=== PATIENT | female | born 1930 | race Caucasian/White ===

== ENCOUNTER 2017-01-10 13:15 | Outpatient (CLI) | payer MEDICARE, OTHER ==
[~2017-01-10 13:15] MED LIST: ASPIRIN81 MG ORAL; CALCIUM CITRAT1 EAC3 PO; CENTRUM COMPLE1 EAC1 PO; DOCUSATE SODIU100 MG ORAL; FOLIC ACID1 MG ORAL; NIASPAN1000 MG ORAL; PACERONE100 MG ORAL; PANTOPRAZOLE SO40 MG ORAL; SIMVASTATIN10 MG ORAL; SYNTHROID25 MCG ORAL; ULTRA COQ1075 MG PO; VITAMIN C500 M1 ORAL; [UNRECOGNIZED DRUG - OTHER]; fish oil; glucosamine; magnesium citrate
[2017-01-10 14:32] LABS: BASOPHILS % (AUTO) 1.1 % (0.0-2.0); EOSINOPHILS % (AUTO) 2.8 % (0.0-3.0); LYMPHOCYTES % (AUTO) 15.1 % (20.0-45.0); MEAN CORPUSCULAR HEMOGLOBIN 29.8 PG (27.0-31.0); MEAN CORPUSCULAR HGB CONC 31.2 G/DL (32.0-36.0); MEAN CORPUSCULAR VOLUME 96 FL (80-99); MEAN PLATELET VOLUME 9.2 FL (6.5-10.1); MONOCYTES % (AUTO) 6.9 % (1.0-10.0); NEUTROPHILS % (AUTO) 74.2 % (45.0-75.0); PLATELET COUNT 142 K/UL (150-450); RED BLOOD COUNT 3.59 M/UL (4.20-5.40); RED CELL DISTRIBUTION WIDTH 14.6 % (11.6-14.8); WHITE BLOOD COUNT 6.5 K/UL (4.8-10.8)
[2017-01-10 14:33] LABS: APPEARANCE,URINE CLEAR; KETONES,URINE 2+ (NEGATIVE); LEUKOCYTE ESTERASE ,URINE 1+ (NEGATIVE); NITRITE,URINE NEGATIVE (NEGATIVE); PH,URINE 6.5 (4.5-8.0); PROTEIN,URINE 3+ (NEGATIVE); UROBILINOGEN,URINE NORMAL MG/DL (0.0-1.0)
[2017-01-10 14:47] LABS: RBC,URINE 0-2 /HPF (0 - 2); SQUAMOUS EPITHELIAL CELL,UR FEW /LPF (NONE/OCC)
[2017-01-10 14:48] LABS: BACTERIA,URINE FEW /HPF
[2017-01-10 14:51] LABS: ALANINE AMINOTRANSFERASE 15 U/L (3-33); ALBUMIN/GLOBULIN RATIO 1.3 (1.0-2.7); ANION GAP 10 (5-15); ASPARTATE AMINO TRANSFERASE 30 U/L (5-40); CALCIUM 9.9 mg/dL (8.6-10.2); CARBON DIOXIDE 28 mEQ/L (20-30); CHLORIDE 99 mEQ/L (98-107); CHOLESTEROL 185 mg/dL (< 200); CHOLESTEROL/HDL RATIO 1.9 (3.3-4.4); CREATININE 0.8 mg/dL (0.5-0.9); LDL CHOLESTEROL (CALC.) 73 mg/dL (60-99); MAGNESIUM 2.2 mg/dL (1.7-2.5); POTASSIUM 4.3 mEQ/L (3.4-4.9); SODIUM 137 mEQ/L (135-145); TOTAL PROTEIN 6.7 g/dL (6.6-8.7)
[2017-01-10 14:52] LABS: HEMOLYSIS 1; IRON 81 ug/dL (37-145); TOTAL IRON BINDING CAPACITY 359 ug/dL (250-400)
[2017-01-10 15:02] LABS: FERRITIN 35 ng/mL (13-150)
== END 2017-01-10 15:15 | disposition home or self-care (01) ==
LOC: LAB 13:15
DX: I10 Essential (primary) hypertension (principal); I25.10 Atherosclerotic heart disease of native coronary artery without angina pectoris; M19.90 Unspecified osteoarthritis, unspecified site
CPT/HCPCS: 36415; 80053; 80061; 81001; 82306; 82607; 82728; 83540; 83550; 83735; 84443; 85025

== ENCOUNTER 2017-01-23 14:59 | Outpatient (CLI) | payer MEDICARE, OTHER ==
--- NOTE | 2017-01-24 13:38 | Diagnostic Imaging Report ---
Indication: COUGH Technique: 2 views of the chest Comparison: 05/25/2015 Findings: Lungs are hyperinflated. Lungs and pleural spaces are clear. Heart size is normal. Aorta is tortuous ectatic and calcified. There is thoracic and lumbar scoliotic deformity again demonstrated. Prior median sternotomy. Findings are unchanged Impression: No acute process. COPD Other findings as noted
== END 2017-01-23 17:59 | disposition home or self-care (01) ==
LOC: RAD 14:59
DX: Z51.81 Encounter for therapeutic drug level monitoring (principal); R05 Cough
CPT/HCPCS: 71020

== ENCOUNTER 2017-12-18 11:01 | Outpatient (CLI) | payer MEDICARE, OTHER | END 2017-12-18 13:01 | disposition home or self-care (01) | LOC: VAS 11:01 | DX: R22.43 Localized swelling, mass and lump, lower limb, bilateral (principal); M79.605 Pain in left leg; M79.604 Pain in right leg | CPT/HCPCS: 93970 ==

== ENCOUNTER 2018-04-03 02:41 | Inpatient (IN) | payer MEDICARE, OTHER ==
[~2018-04-03] VITALS: Ht 162.6 cm; Wt 46.7 kg
[2018-04-03] VITALS (7 sets, daily range): BP systolic 138–199; BP diastolic 80–111
[2018-04-03] MEDS ORDERED: Sodium Chloride 500ML 500 ML IV ONE (02:52)
[2018-04-03] MEDS ORDERED: Isovue-300 100ml vial INJ PRN (03:15)
--- NOTE | 2018-04-03 03:28 | Emergency Room Report ---
History of Present Illness General Chief Complaint: Abdominal Pain Source: Patient Present Illness HPI Patient present with complaints of mid abdominal pain Started earlier yesterday Patient has had several episodes of wanting to vomit however cannot fully vomiting Denies any chest pain denies any diarrhea denies any fevers or chills Pain is sharp and cramping at 3 out of 10 Fairly diffuse throughout the abdominal area Patient has had multiple hernias and has had previous surgery Denies any dysuria Allergies: Coded Allergies: Dairy (Verified Allergy, Severe, GI UPSET, 11/19/08) Patient History Past Medical History: see triage record Pertinent Family History: none Now: No Reviewed Nursing Documentation: PMH: Agreed; PSxH: Agreed Review of Systems All Other Systems: negative except mentioned in HPI Physical Exam Vital Signs Date Time Temp Pulse Resp B/P (MAP) Pulse Ox O2 Delivery O2 Flow Rate FiO2 04/03/18 02:59 98.1 75 16 196/87 95 Room Air 98.1 Sp02 EP Interpretation: reviewed, normal General Appearance: well appearing, no apparent distress Head: normocephalic, atraumatic Eyes: bilateral eye PERRL, bilateral eye EOMI ENT: hearing grossly normal, normal pharynx, TMs + canals normal, uvula midline Neck: full range of motion, supple, no meningismus, no bony tend Respiratory: lungs clear, normal breath sounds, no rhonchi, no respiratory distress, no retraction, no accessory muscle use Cardiovascular #1: normal peripheral pulses, regular rate, rhythm, no edema, no gallop, no JVD, no murmur Gastrointestinal: no organomegaly, non-distended, no guarding, no pulsatile mass, no rebound, other - Patient has multiple abdominal hernias are palpable soft and reducible however has epigastric discomfort on palpation Genitourinary: no CVA tenderness Musculoskeletal: normal inspection Neurologic: oriented x3, responsive, bag mender III-XII nml as tested, motor strength/ tone normal, sensory intact Psychiatric: mood/affect normal Skin: normal color, no rash, warm/dry, palpation normal Lymphatic: normal inspection, no adenopathy Medical Decision Making Diagnostic Impression: Primary Impression: Vomiting Additional Impressions: Abdominal hernia Abdominal pain ER Course With the history exam and presentation, multiple differentials considered, including but not limited to appendicitis, gastritis, cholecystitis, diverticulitis Patient's CT result shows multiple findings please refer to the note for full specifics Labs Test 04/03/18 04:00 White Blood Count 8.5 K/UL (4.8-10.8) Red Blood Count 3.59 M/UL (4.20-5.40) Hemoglobin 10.7 G/DL (12.0-16.0) Hematocrit 33.6 % (37.0-47.0) Mean Corpuscular Volume 94 FL (80-99) Mean Corpuscular Hemoglobin 29.8 PG (27.0-31.0) Mean Corpuscular Hemoglobin Concent 31.8 G/DL (32.0-36.0) Red Cell Distribution Width 14.3 % (11.6-14.8) Platelet Count 167 K/UL (150-450) Mean Platelet Volume 8.7 FL (6.5-10.1) Neutrophils (%) (Auto) % (45.0-75.0) Lymphocytes (%) (Auto) % (20.0-45.0) Monocytes (%) (Auto) % (1.0-10.0) Eosinophils (%) (Auto) % (0.0-3.0) Basophils (%) (Auto) % (0.0-2.0) Urine Color Pale yellow Urine Appearance Clear Urine pH 7 (4.5-8.0) Urine Specific [place] 1.015 (1.005-1.035) Urine Protein 2+ (NEGATIVE) Urine Glucose (UA) Negative (NEGATIVE) Urine Ketones Negative (NEGATIVE) Urine Blood 1+ (NEGATIVE) Urine Nitrite Negative (NEGATIVE) Urine Bilirubin Negative (NEGATIVE) Urine Urobilinogen Normal MG/DL (0.0-1.0) Urine Leukocyte Esterase Negative (NEGATIVE) Urine RBC 0-2 /HPF (0 - 2) Urine WBC 0 /HPF (0 - 2) Urine Squamous Epithelial Cells Few /LPF (NONE/OCC) Urine Bacteria None /HPF (NONE) Sodium Level 142 MMOL/L (136-145) Potassium Level 4.0 MMOL/L (3.5-5.1) Chloride Level 105 MMOL/L (98-107) Carbon Dioxide Level 32 MMOL/L (21-32) Anion Gap 5 mmol/L (5-15) Blood Urea Nitrogen 34 mg/dL (7-18) Creatinine 0.8 MG/DL (0.55-1.30) Estimat Glomerular Filtration Rate mL/min (>60) Glucose Level 139 MG/DL (74-106) Calcium Level 10.1 MG/DL (8.5-10.1) Total Bilirubin 0.6 MG/DL (0.2-1.0) Aspartate Amino Transf (AST/SGOT) 27 U/L (15-37) Alanine Aminotransferase (ALT/SGPT) 21 U/L (12-78) Alkaline Phosphatase 111 U/L (46-116) Total Creatine Kinase 63 U/L (26-308) Creatine Kinase MB 2.2 NG/ML (0.0-3.6) Creatine Kinase MB Relative Index 3.4 Troponin I 0.006 ng/mL (0.000-0.056) Total Protein 7.3 G/DL (6.4-8.2) Albumin 3.5 G/DL (3.4-5.0) Globulin 3.8 g/dL Albumin/Globulin Ratio 0.9 (1.0-2.7) Lipase 258 U/L (73-393) EKG Diagnostic Results Rate: normal Rhythm: NSR ST Segments: no acute changes Rhythm Strip Diag. Results EP Interpretation: yes Rate: 66 Rhythm: NSR, no PVC's, no ectopy CT/MRI/US Diagnostic Results CT/MRI/US Diagnostic Results : Impression CT abdomen pelvisImpression: Possible choledocholithiasis with prominent biliary ducts and a punctate calcification in the region of the distal CBD. Please correlate with the total bilirubin and assess clinically. MRCP may be helpful. Cholelithiasis. Compression fracture deformities within the lower thoracic vertebra likely old. Evidence of old pelvic and left hip trauma. Limited evaluation of the pelvis due to right hip prosthesis. Atherosclerotic vascular disease. Status post appendectomy. Moderate stool. Other incidental findings as above. Last Vital Signs Date Time Temp Pulse Resp B/P (MAP) Pulse Ox O2 Delivery O2 Flow Rate FiO2 04/03/18 02:59 98.1 75 16 196/87 95 Room Air 98.1 Status: improved Disposition: ADMITTED INPATIENT Condition: Serious Referrals: Simeon Mccallum MD (PCP) Adan Hansen DO Apr 03, 2018 03:28
[2018-04-03] MEDS ORDERED: LISINOPRIL10 MG ORAL (03:48)
[2018-04-03] MEDS ORDERED: Morphine Sulfate 2mg/ml Inj IVP ONE (04:15)
[2018-04-03 04:16] LABS: HEMATOCRIT 33.6 % (37.0-47.0); HEMOGLOBIN 10.7 G/DL (12.0-16.0); MEAN CORPUSCULAR VOLUME 94 FL (80-99); PLATELET COUNT 167 K/UL (150-450); RED BLOOD COUNT 3.59 M/UL (4.20-5.40); RED CELL DISTRIBUTION WIDTH 14.3 % (11.6-14.8); WHITE BLOOD COUNT 8.5 K/UL (4.8-10.8)
[2018-04-03 04:28] LABS: APPEARANCE,URINE CLEAR; COLOR,URINE PALE YELLOW
[2018-04-03 04:29] LABS: BILIRUBIN, URINE NEGATIVE (NEGATIVE); GLUCOSE, URINE (UA) NEGATIVE (NEGATIVE); KETONES,URINE NEGATIVE (NEGATIVE); NITRITE,URINE NEGATIVE (NEGATIVE); PH,URINE 7 (4.5-8.0); PROTEIN,URINE 2+ (NEGATIVE); UROBILINOGEN,URINE NORMAL MG/DL (0.0-1.0)
[2018-04-03 04:30] LABS: LEUKOCYTE ESTERASE ,URINE NEGATIVE (NEGATIVE)
[2018-04-03 04:45] LABS: ALANINE AMINOTRANSFERASE 21 U/L (12-78); ALBUMIN 3.5 G/DL (3.4-5.0); ALBUMIN/GLOBULIN RATIO 0.9 (1.0-2.7); ALKALINE PHOSPHATASE 111 U/L (46-116); ANION GAP 5 mmol/L (5-15); ASPARTATE AMINO TRANSFERASE 27 U/L (15-37); BILIRUBIN,TOTAL 0.6 MG/DL (0.2-1.0); BLOOD UREA NITROGEN 34 mg/dL (7-18); CALCIUM 10.1 MG/DL (8.5-10.1); CARBON DIOXIDE 32 MMOL/L (21-32); CHLORIDE 105 MMOL/L (98-107); CKMB 2.2 NG/ML (0.0-3.6); CREATINE KINASE 63 U/L (26-308); CREATININE 0.8 MG/DL (0.55-1.30); SODIUM 142 MMOL/L (136-145)
[2018-04-03] MEDS ORDERED: Morphine Sulfate 4mg/ml Inj (IV USE ONLY) IVP SCH ×2 (08:30→08:45)
[2018-04-03] MEDS ORDERED: Morphine Sulfate 4mg/ml Inj (IV USE ONLY) IVP PRN (08:30)
[2018-04-03] MEDS: Aspirin Baby 81mg ORAL SCH (08:49)
[2018-04-03] MEDS: Levothyroxine 25mcg tab ORAL SCH (08:49)
[2018-04-03] MEDS: Amiodarone 200mg tab ORAL SCH (08:59)
[2018-04-03] MEDS: Lisinopril 10mg tab ORAL SCH (08:59)
[2018-04-03] MEDS: D5 1/2NS 1,000 ML IV SCH ×2 (08:59→22:29)
--- NOTE | 2018-04-03 09:20 | Diagnostic Imaging Report ---
Indication: Abdominal pain Technique: Continuous helical transaxial imaging of the abdomen and pelvis was obtained from the lung bases to the pubic symphysis during intravenous contrast administration. Coronal 2-D reformats were also obtained. Study obtained in a Siemens sensation [address] Automatic Exposure Control was utilized. Total Dose length Product (DLP): 561.[address] Dose Index Volume (CTDIvol): 12.1 mGy Comparison: 10/10/2010 Findings: The biliary ducts appear prominent. There is a punctate focus of calcification in the area of the pancreatic head possibly small CBD stone. Please correlate clinically. Gallstones are noted. No obvious free air identified. Basilar reticular densities consistent with mild scarring at the lung bases. Hiatal hernia is present. Aorta is moderately calcified and tortuous. Stomach is distended. 1 cm hyperdensity in the left kidney may be a proteinaceous cyst. Moderate stool noted in the colon. Appendectomy noted. Cardiomegaly and sternotomy noted. There is narrowing of intervertebral discs and accompanying endplate osteophyte formation. Hypertrophied facet joints also demonstrated.. A post fracture deformity of the mid sacrum demonstrated. Compression fracture deformities are present involving lower thoracic vertebra probably old. Trace free fluid demonstrated. Right total hip prosthesis noted obscuring portions of the pelvis. Suggestion of a wide based anterior abdominal wall hernia noted with a fairly large pannus. Old fractures of the right pubis, left hip again demonstrated. Impression: Possible choledocholithiasis with prominent biliary ducts and a punctate calcification in the region of the distal CBD. Please correlate with the total bilirubin and assess clinically. MRCP may be helpful. Cholelithiasis. Compression fracture deformities within the lower thoracic vertebra likely old. Evidence of old pelvic and left hip trauma. Limited evaluation of the pelvis due to right hip prosthesis. Atherosclerotic vascular disease. Status post appendectomy. Moderate stool. Other incidental findings as above. [facility] has communicated the preliminary results to the Emergency Department. Their findings are largely concordant with this report. The CT scanner at [facility] is accredited by the [employer] and the scans are performed using dose optimization techniques as appropriate to a performed exam including Automatic Exposure control.
--- NOTE | 2018-04-03 09:33 | General Progress Note ---
Assessment/Plan Assessment/Plan GI CONSULT Dictated Assessment - large ventral vernia - abd pain - Dark emesis, possibly a component of UGIB - s/p (R) roderick - CAD / CABG Recommendations - NPO - IVF - PPI - F/u CT results - consider surgical input Thank you Chino Hendricks Subjective Allergies: Coded Allergies: Dairy (Verified Allergy, Severe, GI UPSET, 11/19/08) Objective Last 24 Hour Vital Signs Date Time Temp Pulse Resp B/P (MAP) Pulse Ox O2 Delivery O2 Flow Rate FiO2 04/03/18 08:59 199/91 04/03/18 08:00 97.8 79 20 199/91 (127) 96 97.8 04/03/18 06:50 98.1 75 14 187/80 95 Room Air 98.1 04/03/18 06:45 98.1 75 14 187/80 95 Room Air 04/03/18 06:28 97.7 79 20 156/111 (126) 98 97.7 04/03/18 04:00 196/87 04/03/18 03:49 98.1 75 18 196/87 95 Room Air 98.1 04/03/18 02:59 98.1 75 16 196/87 95 Room Air 98.1 Intake and Output 04/02/18 04/03/18 19:00 07:00 Intake Total 1400 ml Balance 1400 ml Intake Oral 400 ml IV Total 1000 ml Laboratory Tests 04/03/18 04:00: White Blood Count 8.5, Red Blood Count 3.59L, Hemoglobin 10.7L, Hematocrit 33.6L , Mean Corpuscular Volume 94, Mean Corpuscular Hemoglobin 29.8, Mean Corpuscular Hemoglobin Concent 31.8L, Red Cell Distribution Width 14.3, Platelet Count 167, Mean Platelet Volume 8.7, Neutrophils (%) (Auto) , Lymphocytes (%) (Auto) , Monocytes (%) (Auto) , Eosinophils (%) (Auto) , Basophils (%) (Auto) , Urine Color Pale yellow, Urine Appearance Clear, Urine pH 7, Urine Specific [place] 1.015, Urine Protein 2+H, Urine Glucose (UA) Negative, Urine Ketones Negative, Urine Blood 1+H, Urine Nitrite Negative, Urine Bilirubin Negative, Urine Urobilinogen Normal, Urine Leukocyte Esterase Negative, Urine RBC 0-2, Urine WBC 0, Urine Squamous Epithelial Cells Few, Urine Bacteria None, Sodium Level 142, Potassium Level 4.0, Chloride Level 105, Carbon Dioxide Level 32, Anion Gap 5, Blood Urea Nitrogen 34H, Creatinine 0.8, Estimat Glomerular Filtration Rate , Glucose Level 139H, Calcium Level 10.1, Total Bilirubin 0.6, Aspartate Amino Transf (AST/SGOT) 27, Alanine Aminotransferase (ALT/SGPT) 21, Alkaline Phosphatase 111, Total Creatine Kinase 63, Creatine Kinase MB 2.2, Creatine Kinase MB Relative Index 3.4, Troponin I 0.006, Total Protein 7.3, Albumin 3.5, Globulin 3.8, Albumin/Globulin Ratio 0.9L , Lipase 258 Height (Feet): 5 Height (Inches): 3.00 Weight (Pounds): 103 Cecilio Hendricks MD Apr 03, 2018 09:33
--- NOTE | 2018-04-03 12:08 | History & Physical ---
History and Physical History & Physicial HP dictated #[id number] Simeon Mccallum MD Apr 03, 2018 12:08
[2018-04-03] MEDS: Morphine Sulfate 2mg/ml Inj IVP PRN ×3 (14:38→21:15)
--- NOTE | 2018-04-03 15:55 | Diagnostic Imaging Report ---
Indication: Question of choledocholithiasis. Abdominal pain Technique: MRI of the abdomen was performed in a 1.5 Chanda magnet. Pulse sequences obtained include coronal and axial T2 single shot fast spin echo breathhold and respiratory gated coronal T2 3-D M.R.C.P.; this data set was displayed in different projections or MIPs. In addition, multiple coronal oblique thin T2 weighted, fat saturated SE sequences obtained through the CBD. Comparison: Recent CT abdomen Findings: The CBD is seen and there is no definite CBD stone but evaluation is quite limited due to body habitus. There is no intrahepatic biliary ductal dilatation. The CBD does not appear dilated. There are gallstones noted within the gallbladder. The stomach is distended. There is hydronephrosis and scarring noted in the right kidney. Trace left pleural fluid and a small right pleural effusion noted. Heart is enlarged. IMPRESSION: Very limited study showing no obvious choledocholithiasis or biliary ductal obstruction. There is elevated bilirubin or concern for biliary obstruction would recommend obtaining ERCP as the current evaluation is limited. Cholelithiasis Other incidental findings as above.
--- NOTE | 2018-04-03 16:49 | Consultation ---
History of Present Illness General Date patient seen: Apr 03, 2018 Chief Complaint: Abdominal Pain Reason for Consultation: abdominal pain Present Illness HPI 87 year old female with multiple medical comorbidities who presented to ED with complaints of abdominal pain. States pain for 1-2 days as cramping mid abdominal pain. no radiation. Pain associated with nausea and non bloody dark emesis. no fever or chills. came to ED for evaluation. CT with gallstones and possible choledocholithiasis. labs okay. surgery called to evaluate. patient see, chart reviewed, patient examined. Allergies: Coded Allergies: Dairy (Verified Allergy, Severe, GI UPSET, 11/19/08) Medication History Scheduled Amiodarone Hcl* (Pacerone*), 100 MG ORAL DAILY, (Reported) Ascorbic Acid* (Vitamin C*), 500 MG ORAL DAILY, (Reported) Aspirin* (Aspirin*), 81 MG ORAL DAILY, (Reported) Calcium Citrate/Vitamin D3 (Calcium Citrate - Vit D Caplet), 1 EACH PO DAILY, ( Reported) Docusate Sodium* (Docusate Sodium*), 100 MG ORAL BEDTIME, (Reported) Folic Acid* (Folic Acid*), 1 MG ORAL DAILY, (Reported) Folic Acid* (Folic Acid*), 1 MG ORAL DAILY, (Reported) Levothyroxine Sodium* (Synthroid*), 25 MCG ORAL DAILY, (Reported) Lisinopril* (Lisinopril*), 10 MG ORAL DAILY, (Reported) Multivitamin/Iron/Folic Acid (Centrum Complete Multivit Tab), 1 EACH PO DAILY, ( Reported) Niacin (Niaspan), 1,500 MG ORAL HS, (Reported) Pantoprazole* (Pantoprazole*), 40 MG ORAL DAILY, (Reported) Simvastatin (Zocor), 10 MG ORAL BEDTIME, (Reported) Miscellaneous Medications Ubiquinone (Ultra Coq10), 75 MG PO, (Reported) [fish oil], (Reported) [glucosamine], (Reported) [iron citrate], (Reported) [magnesium citrate], (Reported) Patient History History Provided By: Patient, Family Member, Medical Record, PMD Healthcare decision maker Resuscitation status Full Code Advanced Directive on File No Past Medical/Surgical History Past Medical/Surgical History: (1) Pain (2) Contusion, knee (3) Pain (4) Abdominal hernia (5) Abdominal pain (6) Vomiting Review of Systems All Other Systems: negative except mentioned in HPI Physical Exam General Appearance: no apparent distress, alert Lines, tubes and drains: peripheral HEENT: normocephalic, mucous membranes moist Neck: normal inspection Respiratory/Chest: lungs clear, normal breath sounds, no respiratory distress, no accessory muscle use Cardiovascular/Chest: normal rate, regular rhythm Abdomen: soft, no organomegaly, no mass, decreased bowel sounds, distended, other Extremities: normal inspection Skin Exam: normal pigmentation, warm/dry Neurologic: alert, responsive Last 24 Hour Vital Signs Date Time Temp Pulse Resp B/P (MAP) Pulse Ox O2 Delivery O2 Flow Rate FiO2 04/03/18 16:00 77 04/03/18 16:00 98.7 70 18 185/91 (122) 95 98.7 04/03/18 15:08 99.1 04/03/18 14:38 99.1 04/03/18 12:00 99.1 73 18 186/84 (118) 97 99.1 04/03/18 12:00 66 04/03/18 11:06 199/91 04/03/18 11:06 97.8 04/03/18 09:00 Room Air 04/03/18 08:59 199/91 04/03/18 08:00 77 04/03/18 08:00 97.8 79 20 199/91 (127) 96 97.8 04/03/18 06:50 Room Air 04/03/18 06:50 98.1 75 14 187/80 95 Room Air 98.1 04/03/18 06:45 98.1 75 14 187/80 95 Room Air 04/03/18 06:28 97.7 79 20 156/111 (126) 98 97.7 04/03/18 04:00 196/87 04/03/18 03:49 98.1 75 18 196/87 95 Room Air 98.1 04/03/18 02:59 98.1 75 16 196/87 95 Room Air 98.1 Intake and Output 04/02/18 04/03/18 19:00 07:00 Intake Total 1400 ml Balance 1400 ml Intake Oral 400 ml IV Total 1000 ml Laboratory Tests Test 04/03/18 04:00 White Blood Count 8.5 K/UL (4.8-10.8) Red Blood Count 3.59 M/UL (4.20-5.40) L Hemoglobin 10.7 G/DL (12.0-16.0) L Hematocrit 33.6 % (37.0-47.0) L Mean Corpuscular Volume 94 FL (80-99) Mean Corpuscular Hemoglobin 29.8 PG (27.0-31.0) Mean Corpuscular Hemoglobin Concent 31.8 G/DL (32.0-36.0) L Red Cell Distribution Width 14.3 % (11.6-14.8) Platelet Count 167 K/UL (150-450) Mean Platelet Volume 8.7 FL (6.5-10.1) Neutrophils (%) (Auto) % (45.0-75.0) Lymphocytes (%) (Auto) % (20.0-45.0) Monocytes (%) (Auto) % (1.0-10.0) Eosinophils (%) (Auto) % (0.0-3.0) Basophils (%) (Auto) % (0.0-2.0) Urine Color Pale yellow Urine Appearance Clear Urine pH 7 (4.5-8.0) Urine Specific [place] 1.015 (1.005-1.035) Urine Protein 2+ (NEGATIVE) H Urine Glucose (UA) Negative (NEGATIVE) Urine Ketones Negative (NEGATIVE) Urine Blood 1+ (NEGATIVE) H Urine Nitrite Negative (NEGATIVE) Urine Bilirubin Negative (NEGATIVE) Urine Urobilinogen Normal MG/DL (0.0-1.0) Urine Leukocyte Esterase Negative (NEGATIVE) Urine RBC 0-2 /HPF (0 - 2) Urine WBC 0 /HPF (0 - 2) Urine Squamous Epithelial Cells Few /LPF (NONE/OCC) Urine Bacteria None /HPF (NONE) Sodium Level 142 MMOL/L (136-145) Potassium Level 4.0 MMOL/L (3.5-5.1) Chloride Level 105 MMOL/L (98-107) Carbon Dioxide Level 32 MMOL/L (21-32) Anion Gap 5 mmol/L (5-15) Blood Urea Nitrogen 34 mg/dL (7-18) H Creatinine 0.8 MG/DL (0.55-1.30) Estimat Glomerular Filtration Rate mL/min (>60) Glucose Level 139 MG/DL (74-106) H Calcium Level 10.1 MG/DL (8.5-10.1) Total Bilirubin 0.6 MG/DL (0.2-1.0) Aspartate Amino Transf (AST/SGOT) 27 U/L (15-37) Alanine Aminotransferase (ALT/SGPT) 21 U/L (12-78) Alkaline Phosphatase 111 U/L (46-116) Total Creatine Kinase 63 U/L (26-308) Creatine Kinase MB 2.2 NG/ML (0.0-3.6) Creatine Kinase MB Relative Index 3.4 Troponin I 0.006 ng/mL (0.000-0.056) Total Protein 7.3 G/DL (6.4-8.2) Albumin 3.5 G/DL (3.4-5.0) Globulin 3.8 g/dL Albumin/Globulin Ratio 0.9 (1.0-2.7) L Lipase 258 U/L (73-393) Height (Feet): 5 Height (Inches): 4.00 Weight (Pounds): 103 Medications Current Medications Medications (Trade) Dose Ordered Sig/Lainey Route PRN Reason Start Time Stop Time Status Last Admin Dose Admin Acetaminophen (Tylenol) 650 mg Q4H PRN ORAL Mild Pain (Pain Scale 1-3) 04/03/18 08:30 05/03/18 08:29 Amiodarone HCl (Cordarone) 100 mg DAILY ORAL 04/03/18 09:00 05/03/18 08:59 04/03/18 08:59 Aspirin (ASA) 81 mg DAILY ORAL 04/03/18 09:00 05/03/18 08:59 04/03/18 08:49 Barium Sulfate (Readi-Cat 2) 450 ml NOW PRN ORAL Radiology Procedure 04/03/18 03:15 04/05/18 03:09 Clonidine HCl (Catapres TTS-2) 1 patch QWEEK TDERMAL 04/03/18 11:00 05/03/18 10:59 04/03/18 11:06 Dextrose (Dextrose 50%) 25 ml Q30M PRN IV Hypoglycemia 04/03/18 08:30 05/03/18 08:29 Dextrose (Dextrose 50%) 50 ml Q30M PRN IV Hypoglycemia 04/03/18 08:30 05/03/18 08:29 Dextrose/Sodium Chloride 1,000 ml @ 75 mls/hr [id number] IV 04/03/18 09:23 05/03/18 09:22 04/03/18 08:59 Iopamidol (Isovue-300 100ml) 100 ml NOW PRN INJ Radiology Procedure 04/03/18 03:15 Levothyroxine Sodium (Synthroid) 25 mcg DAILY ORAL 04/03/18 09:00 05/03/18 08:59 04/03/18 08:49 Lisinopril (Zestril) 10 mg DAILY ORAL 04/03/18 09:00 05/03/18 08:59 04/03/18 08:59 Morphine Sulfate (Morphine Sulfate) 2 mg Q3H PRN IVP Moderate Pain (Pain Scale 4-6) 04/03/18 08:30 04/10/18 08:29 04/03/18 14:38 Morphine Sulfate (Morphine Sulfate) 4 mg Q3H PRN IVP Severe Pain (Pain Scale 7-10) 04/03/18 08:30 04/10/18 08:29 Ondansetron HCl (Zofran) 4 mg Q4H PRN IVP Nausea & Vomiting 04/03/18 08:30 05/03/18 08:29 04/03/18 08:49 Pantoprazole (Protonix) 40 mg DAILY ORAL 04/03/18 09:00 05/03/18 08:59 04/03/18 08:49 Assessment/Plan Problem List: (1) Abdominal pain Assessment & Plan: abdominal pain with associated nausea and emesis. exam with abd distention CT with cholelithiasis possible choledocholithiasis Labs okay MRCP without choledocholithiasis CT with gastric distention -no acute surgical intervention necessary -will order abd ultrasound to ensure not wall thickening or signs of cholecystitis given MRI limited -trend labs -appreciate GI input. thank you ICD Codes: R10.9 - Unspecified abdominal pain SNOMED: [id number] Qualifiers: Qualified Codes: R10.84 - Generalized abdominal pain Status: stable KenSamuel Apr 03, 2018 16:49
--- NOTE | 2018-04-03 19:28 | Cardiology Progress Note ---
Assessment/Plan Assessment/Plan full; note dictated hydralazien prn iv for bp while npo [id number] Objective Last 24 Hour Vital Signs Date Time Temp Pulse Resp B/P (MAP) Pulse Ox O2 Delivery O2 Flow Rate FiO2 04/03/18 19:10 Room Air 04/03/18 18:29 98.7 04/03/18 17:59 98.7 04/03/18 16:00 77 04/03/18 16:00 98.7 70 18 185/91 (122) 95 98.7 04/03/18 14:38 99.1 04/03/18 12:00 99.1 73 18 186/84 (118) 97 99.1 04/03/18 12:00 66 04/03/18 11:06 199/91 04/03/18 11:06 97.8 04/03/18 09:00 Room Air 04/03/18 08:59 199/91 04/03/18 08:00 77 04/03/18 08:00 97.8 79 20 199/91 (127) 96 97.8 04/03/18 06:50 Room Air 04/03/18 06:50 98.1 75 14 187/80 95 Room Air 98.1 04/03/18 06:45 98.1 75 14 187/80 95 Room Air 04/03/18 06:28 97.7 79 20 156/111 (126) 98 97.7 04/03/18 04:00 196/87 04/03/18 03:49 98.1 75 18 196/87 95 Room Air 98.1 04/03/18 02:59 98.1 75 16 196/87 95 Room Air 98.1 Intake and Output 04/02/18 04/03/18 19:00 07:00 Intake Total 1400 ml Balance 1400 ml Intake Oral 400 ml IV Total 1000 ml Laboratory Tests Test 04/03/18 04:00 White Blood Count 8.5 K/UL (4.8-10.8) Red Blood Count 3.59 M/UL (4.20-5.40) L Hemoglobin 10.7 G/DL (12.0-16.0) L Hematocrit 33.6 % (37.0-47.0) L Mean Corpuscular Volume 94 FL (80-99) Mean Corpuscular Hemoglobin 29.8 PG (27.0-31.0) Mean Corpuscular Hemoglobin Concent 31.8 G/DL (32.0-36.0) L Red Cell Distribution Width 14.3 % (11.6-14.8) Platelet Count 167 K/UL (150-450) Mean Platelet Volume 8.7 FL (6.5-10.1) Neutrophils (%) (Auto) % (45.0-75.0) Lymphocytes (%) (Auto) % (20.0-45.0) Monocytes (%) (Auto) % (1.0-10.0) Eosinophils (%) (Auto) % (0.0-3.0) Basophils (%) (Auto) % (0.0-2.0) Urine Color Pale yellow Urine Appearance Clear Urine pH 7 (4.5-8.0) Urine Specific [place] 1.015 (1.005-1.035) Urine Protein 2+ (NEGATIVE) H Urine Glucose (UA) Negative (NEGATIVE) Urine Ketones Negative (NEGATIVE) Urine Blood 1+ (NEGATIVE) H Urine Nitrite Negative (NEGATIVE) Urine Bilirubin Negative (NEGATIVE) Urine Urobilinogen Normal MG/DL (0.0-1.0) Urine Leukocyte Esterase Negative (NEGATIVE) Urine RBC 0-2 /HPF (0 - 2) Urine WBC 0 /HPF (0 - 2) Urine Squamous Epithelial Cells Few /LPF (NONE/OCC) Urine Bacteria None /HPF (NONE) Sodium Level 142 MMOL/L (136-145) Potassium Level 4.0 MMOL/L (3.5-5.1) Chloride Level 105 MMOL/L (98-107) Carbon Dioxide Level 32 MMOL/L (21-32) Anion Gap 5 mmol/L (5-15) Blood Urea Nitrogen 34 mg/dL (7-18) H Creatinine 0.8 MG/DL (0.55-1.30) Estimat Glomerular Filtration Rate mL/min (>60) Glucose Level 139 MG/DL (74-106) H Calcium Level 10.1 MG/DL (8.5-10.1) Total Bilirubin 0.6 MG/DL (0.2-1.0) Aspartate Amino Transf (AST/SGOT) 27 U/L (15-37) Alanine Aminotransferase (ALT/SGPT) 21 U/L (12-78) Alkaline Phosphatase 111 U/L (46-116) Total Creatine Kinase 63 U/L (26-308) Creatine Kinase MB 2.2 NG/ML (0.0-3.6) Creatine Kinase MB Relative Index 3.4 Troponin I 0.006 ng/mL (0.000-0.056) Total Protein 7.3 G/DL (6.4-8.2) Albumin 3.5 G/DL (3.4-5.0) Globulin 3.8 g/dL Albumin/Globulin Ratio 0.9 (1.0-2.7) L Lipase 258 U/L (73-393) Teo Gross MD Apr 03, 2018 19:28
--- NOTE | 2018-04-03 20:30 | Consultation ---
DATE OF CONSULTATION: 04/03/2018 GASTROENTEROLOGY CONSULTATION CONSULTING PHYSICIAN: Cecilio Hendricks M.D. REFERRING PHYSICIAN: Simeon Mccallum M.D. CHIEF COMPLAINT: I was asked to see this patient by Dr. Simeon Mccallum for evaluation of abdominal pain and vomiting. HISTORY OF PRESENT ILLNESS: The patient is a debilitated 87-year-old woman who lives with her son, who was brought into the hospital due to 1-day history of abdominal distention and pain and nausea. She has undergone a CT scan of the abdomen and pelvis, but the results are not available at this time. Subsequent to the CT scan, the patient had some bouts of emesis and these were dark red-tinged. The patient has a large anterior abdominal wall hernia which sounds like it has been there for a few years, but recently it has been bigger. The patient has had a resection of the right colon and distal small bowel in the past. The patient has had regular bowel movements, the last of which was yesterday. PAST MEDICAL HISTORY: History of diverticulitis, history of mitral valve regurgitation, coronary artery disease, history of atrial fibrillation, history of coronary artery bypass graft procedure, history of peptic ulcer disease, history of diverticulosis, status post partial colectomy of the right colon as well as the terminal ileum and the left fallopian tube, status post oophorectomy, status post partial omentectomy, history of anemia with iron deficiency pattern, history of hypercholesterolemia, and history of hypothyroidism. ALLERGIES: None. FAMILY HISTORY: Noncontributory. SOCIAL HISTORY: The patient does not smoke or drink alcohol. She lives with her son. REVIEW OF SYSTEMS: Otherwise negative. PHYSICAL EXAMINATION: GENERAL: An elderly woman seen in her room at bedside. HEENT: Normocephalic and atraumatic. Sclerae anicteric. Oropharynx, fair dentition. NECK: Supple. CHEST: Reveals clear breath sounds. CARDIOVASCULAR: Revealed regular rate. ABDOMEN: Showed a large ventral hernia with contents of bowel centered in the hernia. There are no focal masses, but the abdomen was diffusely and mildly tender. With no palpable masses, but the hernia was mildly tender diffusely. The contents of bowel could be palpated within this large hernia. EXTREMITIES: Revealed no edema. NEUROLOGIC: Grossly nonfocal. LABORATORY DATA: Noted. ASSESSMENT AND PLAN: This patient presents with a large ventral abdominal hernia which is not new, but perhaps enlarging gradually. She does have diffuse abdominal pain and now vomiting. Reason suspicious of bowel obstruction. The CT scan showed some light on this. Her emesis however also has some dark blood tinge and therefore, she may require endoscopy to evaluate the upper GI tract. In the meantime, I will keep the patient n.p.o. and give IV fluids and proton-pump inhibitor, and check CT scan results before deciding on the next step. Thank you for asking me to participate in the care of this patient. Cecilio Hendricks M.D. DR: Hoang JOB#: [id number] CC:
--- NOTE | 2018-04-03 21:30 | History and Physical Report ---
DATE OF ADMISSION: 04/03/2018 CHIEF COMPLAINT: Abdominal pain, nausea, vomiting. HISTORY OF PRESENT ILLNESS: This is an 87-year-old female with history of abdominal hernia, who presents with nausea, vomiting, and abdominal pain. Apparently, this started last night. She came to the emergency room and was admitted. The patient had a CT of abdomen in the emergency room showing possible choledocholithiasis with prominent biliary ducts and calcification in the region of distal common bile duct. There were also deformities of the lower thoracic vertebrae with compression fractures, which appear to be old. PAST MEDICAL HISTORY: Includes history of hypertension, hypothyroidism, history of GI bleed. MEDICATIONS: Reviewed in the EMR. SOCIAL HISTORY: No history of smoking or alcohol abuse. The patient lives at home with son. ALLERGIES: No known drug allergies. REVIEW OF SYSTEMS: As above. PHYSICAL EXAMINATION: GENERAL: The patient is an elderly female, in no acute distress. VITAL SIGNS: Blood pressure is 199/91, pulse 79, respirations 20, and temperature 97.8. HEENT: Somewhat pale conjunctivae. Anicteric sclerae. NECK: Supple. LUNGS: Clear to auscultation. HEART: S1, S2 without murmurs or rubs. ABDOMEN: Soft. There is a large abdominal wall hernia. Some diffuse tenderness. EXTREMITIES: Bilateral pedal edema. LABORATORY FINDINGS: The CBC shows a WBC of 8500, hematocrit is 33.6, hemoglobin 10.7, platelets 167,000. The chemistry panel shows a sodium of 142, potassium 4, chloride 105, CO2 32, BUN 34, creatinine 0.8, glucose 139. UA was negative. ASSESSMENT: This is an 87-year-old female, who was admitted with nausea, vomiting, and abdominal pain of unclear etiology. She does have biliary obstruction. She does have stones. Acute gastritis or gastroesophageal reflux disease cannot be ruled out. She also has abdominal wall hernia, but likely this is not the cause of her symptoms. PLAN: The patient was seen by Dr. Hendricks in GI consultation and also by Dr. Rogers. I understand that the patient will have an MRCP. Meanwhile, the patient is n.p.o., on IV hydration and pain medication. Simeon Mccallum M.D. DR: Zoraida JOB#: [id number] CC: KATHIE
[2018-04-04] VITALS (15 sets, daily range): BP systolic 137–169; BP diastolic 64–116
--- NOTE | 2018-04-04 00:45 | Consultation ---
DATE OF CONSULTATION: 04/03/2018 CARDIOLOGY CONSULTATION CONSULTING PHYSICIAN: Teo Gross M.D. REFERRING PHYSICIAN: Simeon Mccallum M.D. REASON FOR REFERRAL: Hypertensive urgency and abdominal pain. HISTORY OF PRESENT ILLNESS: This is an elderly female who is known to me. She is 87 years old with multiple medical problems. Apparently, she has had some abdominal pain and nausea and vomiting that got worse and was brought to the emergency room at [facility], has been evaluated, has had MRIs and CT scan results of which are pending and this consultation requested for evaluation of possible need for surgery. The patient does not have any chest pain or pressure. No PND. No orthopnea. No palpitations. No dizziness or lightheadedness. She is not very active however because of fracture of pelvis sometime ago and that left her limited with her mobility. 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 ALLERGIES: She is not really allergic to any medications. SOCIAL HISTORY: She does not smoke or drink or use drugs. She lives at home with her son. MEDICATIONS: Prior to admission included Tylenol with codeine, amiodarone 100 mg daily, aspirin 81 mg daily, calcium with vitamin D two times daily, Colace 100 mg twice a day, ferrous sulfate 325 mg daily, flaxseed oil, folic acid, Lasix 20 mg on an as needed basis, glucosamine 1000 mg daily, Synthroid 50 mcg, lisinopril 15 mg daily, magnesium citrate, oral multivitamins daily, omega-3 fish oil 1000 mg once a day, Protonix 40 mg, Zocor 10 mg, and 100 mg two times a day. REVIEW OF SYSTEMS: GASTROINTESTINAL: Positive for abdominal pain, nausea, and vomiting. No diarrhea. Last bowel movement was yesterday. No bloody stools or bloody vomitus. GENITOURINARY: Negative. PULMONARY: Negative. CONSTITUTIONAL: Negative. NEUROLOGICAL: Negative. PHYSICAL EXAMINATION: GENERAL: Shows to be elderly female, in no respiratory distress, lying relatively flat. NECK: Supple. No jugular venous distention. LUNGS: Clear to auscultation and percussion. CARDIAC: S1 is normal. S2 is normal. Regular rate and rhythm. Holosystolic regurgitant murmur is noted. ABDOMEN: Soft. There is ventral hernia noted. EXTREMITIES: She has edema of the lower extremities, although streaking skin signs suggestive of a recent volume loss. NEUROLOGICAL: She is awake, alert, and responsive, in no apparent respiratory distress. LABORATORY AND DIAGNOSTIC DATA: White count 8.5, hemoglobin 10.7, platelet count of 167. Sodium is 142, potassium 4.0, chloride 105, bicarbonate 32, BUN 34, creatinine 0.8, and glucose of 139. Troponin 0.006. Liver function tests are normal. Lipase of 258. Albumin of 3.5. Urinalysis is unremarkable. She has had x-rays. CT scan of the abdomen and pelvis shows choledocholithiasis with prominent bile duct and punctate calcification distal common bile duct. Cholelithiasis noted. Compression deformities of the vertebral body old, evidence of old pelvic and left hip fracture, status post appendectomy, moderate stool. She has had MRI of her abdomen that shows very limited study, has no evidence of choledocholithiasis or biliary duct obstruction, and cholelithiasis however was noted. ASSESSMENT AND PLAN: 1. Abdominal pain. 2. Nausea and vomiting. 3. Mitral regurgitation. 4. Hypertension. 5. Coronary disease, status post coronary artery bypass graft. 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 Dr. Mccallum, this patient was seen in cardiac consultation. CT scan of the [facility] data reviewed from large ventral hernia containing bowel was noted at that time and cholelithiasis was also noted at that time. From the heart point of view, her electrocardiogram shows basically sinus rhythm with some voltage criteria with left ventricular hypertrophy, nonspecific ST-segment changes. In direct comparison with the EKG from my office, not appear to be changed any significant degree. Her last echocardiogram in the office has been performed on 12/20/2017 at that time showed normal left ventricular systolic function, hyperdynamic LV proximal septal hypertrophy, ejection fraction 70% to 75%, moderate mitral regurgitation, and abnormal diastolic correction of mild degree with peak mitral valve gradient of 13 and mean of 5, and mild aortic regurgitation was noted at that time. This patient has no signs and symptoms of congestive heart failure at this time. No coronary syndrome. If surgical procedure is needed, she should be an acceptable risk to have that done. Her blood pressure is somewhat elevated at this time and she has an NG-tube that is connected to suction and likely is not going to be able to take oral medications. We will therefore start the patient on hydralazine and intravenously as well as combination with nitropaste as needed for blood pressure control. Teo Gross M.D. DR: SHALINI JOB#: [id number] CC:
--- NOTE | 2018-04-04 06:29 | Anethesia Preoperative Eval ---
Anesthesia Pre-op PMH/ROS General Date of Evaluation: Apr 04, 2018 Time of Evaluation: 06:26 Anesthesiologist: dorothea ASA Score: ASA 4 Mallampati Score Class I : Soft palate, uvula, fauces, pillars visible Class II: Soft palate, uvula, fauces visible Class III: Soft palate, base of uvula visible Class IV: Only hard plate visible Mallampati Classification: Class II Surgeon: keisha Diagnosis: abdominal pain Surgical Procedure: egd Anesthesia History: none Social History: smoking - nonsmoker Family History: no anesthesia problems Allergies: Coded Allergies: Dairy (Verified Allergy, Severe, GI UPSET, 11/19/08) Medications: see eMAR Past Medical History Cardiovascular: Reports: HTN, CAD, other - cabg x4 Gastrointestinal/Genitourinary: Reports: other - abdominal hernia, abdominal pain, vomiting Musculoskeletal/Integumentary: Reports: other - pelvic fx, hip fx PSxH Narrative: cabgx4 Anesthesia Pre-op Phys. Exam Physician Exam Last Vital Signs Date Time Temp Pulse Resp B/P (MAP) Pulse Ox O2 Delivery O2 Flow Rate FiO2 04/04/18 04:00 98.0 79 20 137/64 (88) 97 98.0 04/03/18 21:00 Room Air Constitutional: NAD Neurologic: CN 2-12 intact Cardiovascular: RRR Respiratory: CTA Gastrointestinal: S/NT/ND Airway Exam Mallampati Score: Class II MO: limited Neck: flexible TMD: 2fb ROM: limited Teeth: missing Anesthesia Pre-op A/P Labs Labs Test 04/03/18 04:00 White Blood Count 8.5 K/UL (4.8-10.8) Red Blood Count 3.59 M/UL (4.20-5.40) Hemoglobin 10.7 G/DL (12.0-16.0) Hematocrit 33.6 % (37.0-47.0) Mean Corpuscular Volume 94 FL (80-99) Mean Corpuscular Hemoglobin 29.8 PG (27.0-31.0) Mean Corpuscular Hemoglobin Concent 31.8 G/DL (32.0-36.0) Red Cell Distribution Width 14.3 % (11.6-14.8) Platelet Count 167 K/UL (150-450) Mean Platelet Volume 8.7 FL (6.5-10.1) Neutrophils (%) (Auto) % (45.0-75.0) Lymphocytes (%) (Auto) % (20.0-45.0) Monocytes (%) (Auto) % (1.0-10.0) Eosinophils (%) (Auto) % (0.0-3.0) Basophils (%) (Auto) % (0.0-2.0) Urine Color Pale yellow Urine Appearance Clear Urine pH 7 (4.5-8.0) Urine Specific [place] 1.015 (1.005-1.035) Urine Protein 2+ (NEGATIVE) Urine Glucose (UA) Negative (NEGATIVE) Urine Ketones Negative (NEGATIVE) Urine Blood 1+ (NEGATIVE) Urine Nitrite Negative (NEGATIVE) Urine Bilirubin Negative (NEGATIVE) Urine Urobilinogen Normal MG/DL (0.0-1.0) Urine Leukocyte Esterase Negative (NEGATIVE) Urine RBC 0-2 /HPF (0 - 2) Urine WBC 0 /HPF (0 - 2) Urine Squamous Epithelial Cells Few /LPF (NONE/OCC) Urine Bacteria None /HPF (NONE) Sodium Level 142 MMOL/L (136-145) Potassium Level 4.0 MMOL/L (3.5-5.1) Chloride Level 105 MMOL/L (98-107) Carbon Dioxide Level 32 MMOL/L (21-32) Anion Gap 5 mmol/L (5-15) Blood Urea Nitrogen 34 mg/dL (7-18) Creatinine 0.8 MG/DL (0.55-1.30) Estimat Glomerular Filtration Rate mL/min (>60) Glucose Level 139 MG/DL (74-106) Calcium Level 10.1 MG/DL (8.5-10.1) Total Bilirubin 0.6 MG/DL (0.2-1.0) Aspartate Amino Transf (AST/SGOT) 27 U/L (15-37) Alanine Aminotransferase (ALT/SGPT) 21 U/L (12-78) Alkaline Phosphatase 111 U/L (46-116) Total Creatine Kinase 63 U/L (26-308) Creatine Kinase MB 2.2 NG/ML (0.0-3.6) Creatine Kinase MB Relative Index 3.4 Troponin I 0.006 ng/mL (0.000-0.056) Total Protein 7.3 G/DL (6.4-8.2) Albumin 3.5 G/DL (3.4-5.0) Globulin 3.8 g/dL Albumin/Globulin Ratio 0.9 (1.0-2.7) Lipase 258 U/L (73-393) Studies Pre-op Studies: EKG - sinus rhythm w/ first degree avb Risk Assessment & Plan Assessment: asa4 Plan: mac Status Change Before Surgery: No Pre-Antibiotics Drug: Maria Guadalupe Julian MD Apr 04, 2018 06:29
[2018-04-04] MEDS ORDERED: Atropine Inj 1mg/10ml Syr IV PRN (06:30)
[2018-04-04] MEDS ORDERED: fentaNYL 100 mcg/2 mL IV PRN (06:30)
[2018-04-04] MEDS ORDERED: DiphenhydrAMINE 50mg/ml Inj IVP PRN (06:30)
[2018-04-04] MEDS ORDERED: Midazolam 2mg/2ml Inj IVP PRN (06:30)
[2018-04-04] MEDS ORDERED: Propofol 200mg/20ml IV ONE (07:00)
[2018-04-04] MEDS ORDERED: Lidocaine 1% MPF 10mg/ml 5ml ONE (07:00)
--- NOTE | 2018-04-04 07:04 | Pre-Procedure Note/Attestation ---
Pre-Procedure Note/Attestation Complete Prior to Procedure Planned Procedure: not applicable Procedure Narrative: egd Indications for Procedure Pre-Operative Diagnosis: gib Attestation I attest that I discussed the nature of the procedure; its benefits; risks and complications; and alternatives (and the risks and benefits of such alternatives ), prior to the procedure, with the patient (or the patient's legal cash application representative). I attest that, if there was a reasonable possibility of needing a blood transfusion, the patient (or the patient's legal cash application representative) was given the [facility] standardized written summary, pursuant to the [employer]amilia [employer] Blood Safety Act ([place] Health and Safety Code # 1645, as amended). I attest that I re-evaluated the patient just prior to the surgery and that there has been no change in the patient's H&P, except as documented below: Cecilio Hendricks MD Apr 04, 2018 07:04
[2018-04-04] MEDS ORDERED: NS 500ML IVPB ONE (07:05)
--- NOTE | 2018-04-04 07:09 | General Progress Note ---
Assessment/Plan Assessment/Plan Assessment - large ventral hernia - abd pain, L>R - cholelithiasis, doubt cholecystitis - Dark emesis,and high NGT output - ? gastric outlet or small bowel obstruction - s/p (R) hemicolectomy - CAD / CABG Recommendations - NPO - IVF - PPI - NGT - EGD today POST PROCEDURE ADDENDUM EGD: - Still with about 300-400 cc of semi- liquid dark green gastric contents, despite NGT suction overnight - only able to suction out 200 cc, the remain is semi-solid material - no obstructive process noted, able to pass into duodenum - mild proximal gastritis and mild esophageal erythema noted, some portions of fundus obscured by residual food - random gastric biopsies sent to pathology Rec: UGI with SBFT to evaluate gastrointestinal passage Subjective Allergies: Coded Allergies: Dairy (Verified Allergy, Severe, GI UPSET, 11/19/08) Subjective seen in GI lab still with some abd pain, more on left CT and MRI showing cholelithiasis and the ventral hernia MRI did not confirm CBD stone (and LFT normal) 1000 cc NGT output overnight, dark for EGD today Objective Last 24 Hour Vital Signs Date Time Temp Pulse Resp B/P (MAP) Pulse Ox O2 Delivery O2 Flow Rate FiO2 04/04/18 04:00 98.0 79 20 137/64 (88) 97 98.0 04/04/18 04:00 78 04/04/18 01:59 163/116 04/04/18 00:00 98.3 71 22 163/116 (132) 92 98.3 04/04/18 00:00 66 04/03/18 21:00 Room Air 04/03/18 20:00 72 04/03/18 20:00 99.0 71 22 138/86 (103) 99 99.0 04/03/18 19:10 Room Air 04/03/18 18:29 98.7 04/03/18 17:59 98.7 04/03/18 16:00 77 04/03/18 16:00 98.7 70 18 185/91 (122) 95 98.7 04/03/18 14:38 99.1 04/03/18 12:00 99.1 73 18 186/84 (118) 97 99.1 04/03/18 12:00 66 04/03/18 11:06 199/91 04/03/18 11:06 97.8 04/03/18 09:00 Room Air 04/03/18 08:59 199/91 04/03/18 08:00 77 04/03/18 08:00 97.8 79 20 199/91 (127) 96 97.8 Intake and Output 04/03/18 04/04/18 19:00 07:00 Intake Total 575 ml Output Total 1650 ml 1000 ml Balance -1075 ml -1000 ml IV Total 575 ml Output Urine Total 1650 ml Other 1000 ml # Voids 2 # Bowel Movements 1 Height (Feet): 5 Height (Inches): 4.00 Weight (Pounds): 103 Objective Thin woman NCAT supple CTA RRR abd soft, large ventral hernia, (+) mild L sided TTP no edema Cecilio Hendricks MD Apr 04, 2018 07:09
[2018-04-04] MEDS ORDERED: Gastrograffin 30ml ORAL PRN (07:45)
[2018-04-04] MEDS ORDERED: Barium EZ Gas II granules MC PRN (07:45)
[2018-04-04] MEDS ORDERED: Varibar Thin Liquid powder 148gm MC PRN (07:45)
[2018-04-04] MEDS ORDERED: Barium EZ HD MC PRN (07:45)
[2018-04-04] MEDS: Aspirin Baby 81mg ORAL SCH (08:34)
--- NOTE | 2018-04-04 08:34 | Diagnostic Imaging Report ---
Indication: Status post nasogastric tube placement Technique: Supine view of the abdomen Comparison: Chemical Sprayer image from abdomen pelvis CT of earlier the same day Findings: There is a nasogastric tube in place. Tip projects at the level of the gastric body/fundus junction The stomach is quite distended with gas despite this. The remaining bowel gas is unremarkable. There is lumbar scoliotic deformity. Visualized lung bases demonstrate parenchymal calcifications. There is a right hip prosthesis. Calcified fibroids are seen in the pelvis. 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 Persistent gastric distention despite this Other findings as noted
[2018-04-04] MEDS: Lisinopril 10mg tab ORAL SCH (08:35)
[2018-04-04] MEDS: Levothyroxine 25mcg tab ORAL SCH (08:35)
[2018-04-04] MEDS: Amiodarone 200mg tab ORAL SCH (08:35)
--- NOTE | 2018-04-04 08:38 | Immediate Post-Op Evaluation ---
Immediate Post-Op Evalulation Immediate Post-Op Evalulation Procedure: egd w/bx Date of Evaluation: Apr 04, 2018 Time of Evaluation: 07:42 IV Fluids: 200ml 0.9ns Blood Products: none Estimated Blood Loss: negligible Blood Pressure Systolic: 148 Blood Pressure Diastolic: 75 Pulse Rate: 74 Respiratory Rate: 18 O2 Sat by Pulse Oximetry: 99 Temperature (Fahrenheit): 99.5 Pain Score (1-10): 0 Nausea: No Vomiting: No Complications none Patient Status: awake, reacts, patent Hydration Status: adequate Drug: Maria Guadalupe Julian MD Apr 04, 2018 08:38
--- NOTE | 2018-04-04 08:40 | 48 Hour Post Anesthesia Eval ---
Post Anesthesia Evaluation Procedure: egd w/bx Date of Evaluation: Apr 04, 2018 Time of Evaluation: 07:44 Blood Pressure Systolic: 153 0: 70 Pulse Rate: 57 Respiratory Rate: 18 Temperature (Fahrenheit): 99.5 O2 Sat by Pulse Oximetry: 99 Airway: patent Nausea: No Vomiting: No Pain Intensity: 0 Hydration Status: adequate Cardiopulmonary Status: stable Mental Status/LOC: patient returned to baseline Post-Anesthesia Complications: none Follow-up care needed: N/A Maria Guadalupe Gongora MD Apr 04, 2018 08:40
[2018-04-04] MEDS ORDERED: Pantoprazole Inj IVP SCH (09:00)
--- NOTE | 2018-04-04 10:11 | Diagnostic Imaging Report ---
Indication: Post nasogastric tube placement Technique: Supine view of the abdomen Comparison: 04/03/2018 Findings: Again demonstrated is a nasogastric tube, coiled in the gastric fundus. There is interim decrease gaseous distention of the stomach noted. Right hip prosthesis, extensive degenerative change and deformity of the left hip, osteoporotic change, calcified right pelvic fibroid are again demonstrated Impression: Satisfactory nasogastric intubation, interim partial gastric decompression Other findings as noted
[2018-04-04 10:13] LABS: BASOPHILS % (AUTO) 0.4 % (0.0-2.0); EOSINOPHILS % (AUTO) 0.1 % (0.0-3.0); HEMATOCRIT 30.7 % (37.0-47.0); HEMOGLOBIN 9.9 G/DL (12.0-16.0); MEAN CORPUSCULAR VOLUME 94 FL (80-99); NEUTROPHILS % (AUTO) 82.5 % (45.0-75.0); PLATELET COUNT 148 K/UL (150-450); RED BLOOD COUNT 3.26 M/UL (4.20-5.40); RED CELL DISTRIBUTION WIDTH 13.9 % (11.6-14.8); WHITE BLOOD COUNT 11.2 K/UL (4.8-10.8)
[2018-04-04 10:33] LABS: ALANINE AMINOTRANSFERASE 15 U/L (12-78); ALBUMIN 2.7 G/DL (3.4-5.0); ALBUMIN/GLOBULIN RATIO 0.8 (1.0-2.7); ALKALINE PHOSPHATASE 83 U/L (46-116); ANION GAP 3 mmol/L (5-15); ASPARTATE AMINO TRANSFERASE 22 U/L (15-37); BILIRUBIN,TOTAL 0.8 MG/DL (0.2-1.0); BLOOD UREA NITROGEN 22 mg/dL (7-18); CALCIUM 9.2 MG/DL (8.5-10.1); CARBON DIOXIDE 35 MMOL/L (21-32); CHLORIDE 101 MMOL/L (98-107); CREATININE 0.7 MG/DL (0.55-1.30); POTASSIUM 3.2 MMOL/L (3.5-5.1); SODIUM 139 MMOL/L (136-145)
--- NOTE | 2018-04-04 11:59 | Diagnostic Imaging Report ---
Indication: Abdominal pain, abnormal renal function tests Technique: Padgett-scale and duplex images of the upper abdomen were obtained Comparison: Reference made to abdomen MRI and abdomen pelvis CT dated 04/03/2018. No prior sonograms for comparison Findings: Gallbladder demonstrates gallstones. No wall thickening nor pericholecystic fluid. Sonographic Mae's sign is negative. Common bile duct measures 5 mm in diameter. However, a calcification is seen within the downstream common bile duct which measures 6 mm in diameter. This probably corresponds to the abnormality described on recent CT scan. No intrahepatic biliary ductal dilatation. Liver demonstrates normal echogenicity, no focal abnormality. Portal vein and hepatic veins are patent. Pancreas is incompletely visualized due to overlying bowel gas, visualized portions are unremarkable. Spleen is unremarkable. Left kidney measures 9.8 cm in length. Right kidney measures 9.6 cm length. Both kidneys demonstrate normal echogenicity. There is mild to moderate right hydronephrosis. possible possible sinus calcification is seen in the left kidney. There is also a small cyst in the left kidney. . Abdominal aorta is partially obscured by bowel gas, visualized portions are non-aneurysmal . Impression: Cholelithiasis Choledocholithiasis, confirming findings on recent CT scan. However, this is incompletely obstructive right obstructive, as there is no biliary ductal dilatation. Correlation with liver function tests is recommended Mild to moderate hydronephrosis. This is demonstrated on MRI of 04/03/2019 although is barely if at all evident on CT scan of earlier that same day, indicating rapid progression. Etiology uncertain Left renal sinus calcification, probably arterial based on prior CT scan Other findings as noted, including left renal cyst Note suboptimal visualization of the pancreas and abdominal aorta
--- NOTE | 2018-04-04 12:10 | Diagnostic Imaging Report ---
Indication: Vomiting Technique: Water-soluble contrast injected into nasogastric tube under fluoroscopic supervision. Spot and serial overhead films obtained. Total fluoroscopy time 1.5 minutes. Total dose area product 71 dGycm2 Number of images: 15 Comparison: none Findings: Contrast was seen to exit the stomach as soon as it was injected. Limited images of the stomach are grossly unremarkable. Rapid transit of contrast through the small bowel is noted, and contrast is seen within the colon on the 30 minute film. No small bowel distention. Small bowel mucosal pattern is normal. Impression: Limited exam, demonstrating no evidence of gastric outlet obstruction and no evidence of small bowel obstruction. Transit is in fact rapid, with contrast reaching the colon at 30 minutes
[2018-04-04] MEDS: D5 1/2NS 1,000 ML IV SCH ×2 (12:14→17:19)
--- NOTE | 2018-04-04 14:37 | General Surgery Progress Note ---
General Surgery-Progress Note Subjective Additional Comments no acute events. Had EGD and upper GI this morning Objective Last 24 Hour Vital Signs Date Time Temp Pulse Resp B/P (MAP) Pulse Ox O2 Delivery O2 Flow Rate FiO2 04/04/18 12:30 98.1 69 20 159/85 (109) 92 98.1 04/04/18 11:58 66 04/04/18 08:40 211.1 57 18 99 04/04/18 08:38 211.1 74 18 99 04/04/18 08:36 Room Air 04/04/18 08:35 142/68 04/04/18 08:15 62 20 142/72 Room Air 04/04/18 08:10 63 21 142/68 Room Air 04/04/18 08:05 62 21 149/68 Room Air 04/04/18 08:00 61 24 154/70 Nasal Cannula 2 04/04/18 07:55 62 24 154/78 Nasal Cannula 2 04/04/18 07:50 62 16 158/67 100 Nasal Cannula 4 04/04/18 07:45 64 16 152/70 100 Nasal Cannula 4 04/04/18 07:43 76 04/04/18 07:40 67 22 153/70 100 Nasal Cannula 4 04/04/18 07:35 73 22 153/70 100 Nasal Cannula 4 04/04/18 07:35 66 23 153/70 (97) 100 04/04/18 07:34 99.5 66 23 148/75 100 Nasal Cannula 4 99.5 04/04/18 04:00 98.0 79 20 137/64 (88) 97 98.0 04/04/18 04:00 78 04/04/18 01:59 163/116 04/04/18 00:00 98.3 71 22 163/116 (132) 92 98.3 04/04/18 00:00 66 04/03/18 21:00 Room Air 04/03/18 20:00 72 04/03/18 20:00 99.0 71 22 138/86 (103) 99 99.0 04/03/18 19:10 Room Air 04/03/18 18:29 98.7 04/03/18 17:59 98.7 04/03/18 16:00 77 04/03/18 16:00 98.7 70 18 185/91 (122) 95 98.7 04/03/18 14:38 99.1 I&O Intake and Output 04/03/18 04/04/18 19:00 07:00 Intake Total 575 ml Output Total 1650 ml 1000 ml Balance -1075 ml -1000 ml IV Total 575 ml Output Urine Total 1650 ml Other 1000 ml # Voids 2 # Bowel Movements 1 Cardiovascular: RSR Respiratory: clear Abdomen: soft, distended, non-tender, present bowel sounds Extremities: other Laboratory Tests Test 04/04/18 10:00 White Blood Count 11.2 K/UL (4.8-10.8) H Red Blood Count 3.26 M/UL (4.20-5.40) L Hemoglobin 9.9 G/DL (12.0-16.0) L Hematocrit 30.7 % (37.0-47.0) L Mean Corpuscular Volume 94 FL (80-99) Mean Corpuscular Hemoglobin 30.3 PG (27.0-31.0) Mean Corpuscular Hemoglobin Concent 32.1 G/DL (32.0-36.0) Red Cell Distribution Width 13.9 % (11.6-14.8) Platelet Count 148 K/UL (150-450) L Mean Platelet Volume 7.5 FL (6.5-10.1) Neutrophils (%) (Auto) 82.5 % (45.0-75.0) H Lymphocytes (%) (Auto) 10.0 % (20.0-45.0) L Monocytes (%) (Auto) 7.0 % (1.0-10.0) Eosinophils (%) (Auto) 0.1 % (0.0-3.0) Basophils (%) (Auto) 0.4 % (0.0-2.0) Sodium Level 139 MMOL/L (136-145) Potassium Level 3.2 MMOL/L (3.5-5.1) L Chloride Level 101 MMOL/L (98-107) Carbon Dioxide Level 35 MMOL/L (21-32) H Anion Gap 3 mmol/L (5-15) L Blood Urea Nitrogen 22 mg/dL (7-18) H Creatinine 0.7 MG/DL (0.55-1.30) Estimat Glomerular Filtration Rate mL/min (>60) Glucose Level 102 MG/DL (74-106) Calcium Level 9.2 MG/DL (8.5-10.1) Total Bilirubin 0.8 MG/DL (0.2-1.0) Aspartate Amino Transf (AST/SGOT) 22 U/L (15-37) Alanine Aminotransferase (ALT/SGPT) 15 U/L (12-78) Alkaline Phosphatase 83 U/L (46-116) Total Protein 5.9 G/DL (6.4-8.2) L Albumin 2.7 G/DL (3.4-5.0) L Globulin 3.2 g/dL Albumin/Globulin Ratio 0.8 (1.0-2.7) L Plan Problems: (1) Abdominal pain Assessment & Plan: abdominal pain with associated nausea and emesis. exam with abd distention CT with cholelithiasis possible choledocholithiasis Labs okay MRCP without choledocholithiasis CT with gastric distention Findings: Contrast was seen to exit the stomach as soon as it was injected. Limited images of the stomach are grossly unremarkable. Rapid transit of contrast through the small bowel is noted, and contrast is seen within the colon on the 30 minute film. No small bowel distention. Small bowel mucosal pattern is normal. Impression: Limited exam, demonstrating no evidence of gastric outlet obstruction and no evidence of small bowel obstruction. Transit is in fact rapid, with contrast reaching the colon at 30 minutes EGD with retained gastric contents but no obstruction noted. some gastritis. -no acute surgical intervention necessary -okay for diet from surgical standpoint. needs to be sitting up during and after meal. -appreciate GI input. thank you Samuel Rogers Apr 04, 2018 14:37
--- NOTE | 2018-04-04 14:52 | General Progress Note ---
Assessment/Plan Problem List: (1) Abdominal pain ICD Codes: R10.9 - Unspecified abdominal pain SNOMED: 22784913 Qualifiers: Qualified Codes: R10.84 - Generalized abdominal pain (2) Vomiting ICD Codes: R11.10 - Vomiting, unspecified SNOMED: 850337149 (3) Abdominal hernia ICD Codes: K46.9 - Unspecified abdominal hernia without obstruction or gangrene SNOMED: 16354299 Assessment/Plan IVF NPO EGD by Dr Hendricks will discuss Subjective Allergies: Coded Allergies: Dairy (Verified Allergy, Severe, GI UPSET, 11/19/08) Subjective In NAD Objective Last 24 Hour Vital Signs Date Time Temp Pulse Resp B/P (MAP) Pulse Ox O2 Delivery O2 Flow Rate FiO2 04/04/18 12:30 98.1 69 20 159/85 (109) 92 98.1 04/04/18 11:58 66 04/04/18 08:40 211.1 57 18 99 04/04/18 08:38 211.1 74 18 99 04/04/18 08:36 Room Air 04/04/18 08:35 142/68 04/04/18 08:15 62 20 142/72 Room Air 04/04/18 08:10 63 21 142/68 Room Air 04/04/18 08:05 62 21 149/68 Room Air 04/04/18 08:00 61 24 154/70 Nasal Cannula 2 04/04/18 07:55 62 24 154/78 Nasal Cannula 2 04/04/18 07:50 62 16 158/67 100 Nasal Cannula 4 04/04/18 07:45 64 16 152/70 100 Nasal Cannula 4 04/04/18 07:43 76 04/04/18 07:40 67 22 153/70 100 Nasal Cannula 4 04/04/18 07:35 73 22 153/70 100 Nasal Cannula 4 04/04/18 07:35 66 23 153/70 (97) 100 04/04/18 07:34 99.5 66 23 148/75 100 Nasal Cannula 4 99.5 04/04/18 04:00 98.0 79 20 137/64 (88) 97 98.0 04/04/18 04:00 78 04/04/18 01:59 163/116 04/04/18 00:00 98.3 71 22 163/116 (132) 92 98.3 04/04/18 00:00 66 04/03/18 21:00 Room Air 04/03/18 20:00 72 04/03/18 20:00 99.0 71 22 138/86 (103) 99 99.0 04/03/18 19:10 Room Air 04/03/18 18:29 98.7 04/03/18 17:59 98.7 04/03/18 16:00 77 04/03/18 16:00 98.7 70 18 185/91 (122) 95 98.7 Intake and Output 04/03/18 04/04/18 19:00 07:00 Intake Total 575 ml Output Total 1650 ml 1000 ml Balance -1075 ml -1000 ml IV Total 575 ml Output Urine Total 1650 ml Other 1000 ml # Voids 2 # Bowel Movements 1 Laboratory Tests 04/04/18 10:00: White Blood Count 11.2H, Red Blood Count 3.26L, Hemoglobin 9.9L, Hematocrit 30.7L, Mean Corpuscular Volume 94, Mean Corpuscular Hemoglobin 30.3, Mean Corpuscular Hemoglobin Concent 32.1, Red Cell Distribution Width 13.9, Platelet Count 148L, Mean Platelet Volume 7.5, Neutrophils (%) (Auto) 82.5H, Lymphocytes (%) (Auto) 10.0L, Monocytes (%) (Auto) 7.0, Eosinophils (%) (Auto) 0.1, Basophils (%) (Auto) 0.4, Sodium Level 139, Potassium Level 3.2L, Chloride Level 101, Carbon Dioxide Level 35H, Anion Gap 3L, Blood Urea Nitrogen 22H, Creatinine 0.7, Estimat Glomerular Filtration Rate , Glucose Level 102, Calcium Level 9.2, Total Bilirubin 0.8, Aspartate Amino Transf (AST/SGOT) 22, Alanine Aminotransferase (ALT/SGPT) 15, Alkaline Phosphatase 83, Total Protein 5.9L, Albumin 2.7L, Globulin 3.2, Albumin/Globulin Ratio 0.8L Height (Feet): 5 Height (Inches): 4.00 Weight (Pounds): 103 Cardiovascular: normal rate Respiratory/Chest: lungs clear Abdomen: soft Simeon Mccallum MD Apr 04, 2018 14:52
[2018-04-04] MEDS: Morphine Sulfate 2mg/ml Inj IVP PRN (17:33)
--- NOTE | 2018-04-04 20:02 | Cardiology Progress Note ---
Assessment/Plan Assessment/Plan 1. Abdominal pain. 2. Nausea and vomiting. 3. Mitral regurgitation. 4. Hypertension. 5. Coronary disease, status post coronary artery bypass graft. 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 now off tele hydralazien cannot be admistered on this floor iv but vasottec can be iv will need to resume usull med when is able to take pos agian including amio look more comforatable ugi note for nwo ntp Subjective Cardiovascular: Denies: chest pain, lightheadedness Respiratory: Denies: shortness of breath Gastrointestinal/Abdominal: Denies: abdominal pain Genitourinary: Denies: burning Objective Last 24 Hour Vital Signs Date Time Temp Pulse Resp B/P (MAP) Pulse Ox O2 Delivery O2 Flow Rate FiO2 04/04/18 18:03 98.1 04/04/18 17:33 98.1 04/04/18 16:00 98.8 72 20 169/89 (115) 92 98.8 04/04/18 12:30 98.1 69 20 159/85 (109) 92 98.1 04/04/18 11:58 66 04/04/18 08:40 211.1 57 18 99 04/04/18 08:38 211.1 74 18 99 04/04/18 08:36 Room Air 04/04/18 08:35 142/68 04/04/18 08:15 62 20 142/72 Room Air 04/04/18 08:10 63 21 142/68 Room Air 04/04/18 08:05 62 21 149/68 Room Air 04/04/18 08:00 61 24 154/70 Nasal Cannula 2 04/04/18 07:55 62 24 154/78 Nasal Cannula 2 04/04/18 07:50 62 16 158/67 100 Nasal Cannula 4 04/04/18 07:45 64 16 152/70 100 Nasal Cannula 4 04/04/18 07:43 76 04/04/18 07:40 67 22 153/70 100 Nasal Cannula 4 04/04/18 07:35 73 22 153/70 100 Nasal Cannula 4 04/04/18 07:35 66 23 153/70 (97) 100 04/04/18 07:34 99.5 66 23 148/75 100 Nasal Cannula 4 99.5 04/04/18 04:00 98.0 79 20 137/64 (88) 97 98.0 04/04/18 04:00 78 04/04/18 01:59 163/116 04/04/18 00:00 98.3 71 22 163/116 (132) 92 98.3 04/04/18 00:00 66 04/03/18 21:00 Room Air General Appearance: alert Neck: supple Cardiovascular: normal rate, regular rhythm, systolic murmur Respiratory/Chest: lungs clear Abdomen: normal bowel sounds, non tender, soft Extremities: no swelling Intake and Output 04/03/18 04/04/18 19:00 07:00 Intake Total 575 ml Output Total 1650 ml 1000 ml Balance -1075 ml -1000 ml IV Total 575 ml Output Urine Total 1650 ml Other 1000 ml # Voids 2 # Bowel Movements 1 Laboratory Tests Test 04/04/18 10:00 White Blood Count 11.2 K/UL (4.8-10.8) H Red Blood Count 3.26 M/UL (4.20-5.40) L Hemoglobin 9.9 G/DL (12.0-16.0) L Hematocrit 30.7 % (37.0-47.0) L Mean Corpuscular Volume 94 FL (80-99) Mean Corpuscular Hemoglobin 30.3 PG (27.0-31.0) Mean Corpuscular Hemoglobin Concent 32.1 G/DL (32.0-36.0) Red Cell Distribution Width 13.9 % (11.6-14.8) Platelet Count 148 K/UL (150-450) L Mean Platelet Volume 7.5 FL (6.5-10.1) Neutrophils (%) (Auto) 82.5 % (45.0-75.0) H Lymphocytes (%) (Auto) 10.0 % (20.0-45.0) L Monocytes (%) (Auto) 7.0 % (1.0-10.0) Eosinophils (%) (Auto) 0.1 % (0.0-3.0) Basophils (%) (Auto) 0.4 % (0.0-2.0) Sodium Level 139 MMOL/L (136-145) Potassium Level 3.2 MMOL/L (3.5-5.1) L Chloride Level 101 MMOL/L (98-107) Carbon Dioxide Level 35 MMOL/L (21-32) H Anion Gap 3 mmol/L (5-15) L Blood Urea Nitrogen 22 mg/dL (7-18) H Creatinine 0.7 MG/DL (0.55-1.30) Estimat Glomerular Filtration Rate mL/min (>60) Glucose Level 102 MG/DL (74-106) Calcium Level 9.2 MG/DL (8.5-10.1) Total Bilirubin 0.8 MG/DL (0.2-1.0) Aspartate Amino Transf (AST/SGOT) 22 U/L (15-37) Alanine Aminotransferase (ALT/SGPT) 15 U/L (12-78) Alkaline Phosphatase 83 U/L (46-116) Total Protein 5.9 G/DL (6.4-8.2) L Albumin 2.7 G/DL (3.4-5.0) L Globulin 3.2 g/dL Albumin/Globulin Ratio 0.8 (1.0-2.7) L Teo Gross MD Apr 04, 2018 20:02
[2018-04-04] MEDS: Pantoprazole Inj IVP SCH (20:05)
[2018-04-05] VITALS (11 sets, daily range): BP systolic 151–193; BP diastolic 73–98
[2018-04-05] MEDS: Enalaprilat 2.5mg/2ml Inj IV PRN ×2 (01:13→21:29)
[2018-04-05] MEDS: Levothyroxine 25mcg tab ORAL SCH (06:14)
[2018-04-05] MEDS: D5 1/2NS 1,000 ML IV SCH ×2 (06:18→19:09)
[2018-04-05] MEDS ORDERED: Barium EZ Gas II granules MC PRN (07:45)
[2018-04-05] MEDS ORDERED: Barium EZ HD MC PRN (07:45)
[2018-04-05] MEDS ORDERED: Varibar Thin Liquid powder 148gm MC PRN (07:45)
[2018-04-05] MEDS ORDERED: Gastrograffin 30ml ORAL PRN (07:45)
--- NOTE | 2018-04-05 08:29 | General Progress Note ---
Assessment/Plan Assessment/Plan Assessment - large ventral hernia - abd pain, L>R - cholelithiasis, ? choledocholithiasis based on CT - s/p (R) hemicolectomy - CAD / CABG -SBFT reviewed Recommendations - clears -dc NGT - IVF - PPI -MRCP -fu biopsy results EGD: (04/04) - Still with about 300-400 cc of semi- liquid dark green gastric contents, despite NGT suction overnight - only able to suction out 200 cc, the remain is semi-solid material - no obstructive process noted, able to pass into duodenum - mild proximal gastritis and mild esophageal erythema noted, some portions of fundus obscured by residual food - random gastric biopsies sent to pathology Subjective ROS Limited/Unobtainable: Yes Allergies: Coded Allergies: Dairy (Verified Allergy, Severe, GI UPSET, 11/19/08) Subjective had BM Objective Last 24 Hour Vital Signs Date Time Temp Pulse Resp B/P (MAP) Pulse Ox O2 Delivery O2 Flow Rate FiO2 04/05/18 08:00 99.1 73 18 177/90 (119) 97 99.1 04/05/18 04:00 98.7 70 180/84 (116) 98.7 04/05/18 02:00 166/85 (112) 04/05/18 01:28 188/97 (127) 04/05/18 01:13 193/92 04/05/18 01:13 193/92 (125) 04/05/18 00:30 99.9 74 20 191/98 (129) 97 99.9 04/04/18 20:40 Room Air 04/04/18 20:00 99.7 77 17 156/86 (109) 91 99.7 04/04/18 18:03 98.1 04/04/18 17:33 98.1 04/04/18 16:00 98.8 72 20 169/89 (115) 92 98.8 04/04/18 12:30 98.1 69 20 159/85 (109) 92 98.1 04/04/18 11:58 66 04/04/18 08:40 211.1 57 18 99 04/04/18 08:38 211.1 74 18 99 04/04/18 08:36 Room Air 04/04/18 08:35 142/68 Intake and Output 04/04/18 04/05/18 19:00 07:00 Intake Total 650 ml 600 ml Output Total 70 ml Balance 580 ml 600 ml IV Total 650 ml 600 ml Other 70 ml # Bowel Movements 1 2 Laboratory Tests 04/04/18 10:00: White Blood Count 11.2H, Red Blood Count 3.26L, Hemoglobin 9.9L, Hematocrit 30.7L, Mean Corpuscular Volume 94, Mean Corpuscular Hemoglobin 30.3, Mean Corpuscular Hemoglobin Concent 32.1, Red Cell Distribution Width 13.9, Platelet Count 148L, Mean Platelet Volume 7.5, Neutrophils (%) (Auto) 82.5H, Lymphocytes (%) (Auto) 10.0L, Monocytes (%) (Auto) 7.0, Eosinophils (%) (Auto) 0.1, Basophils (%) (Auto) 0.4, Sodium Level 139, Potassium Level 3.2L, Chloride Level 101, Carbon Dioxide Level 35H, Anion Gap 3L, Blood Urea Nitrogen 22H, Creatinine 0.7, Estimat Glomerular Filtration Rate , Glucose Level 102, Calcium Level 9.2, Total Bilirubin 0.8, Aspartate Amino Transf (AST/SGOT) 22, Alanine Aminotransferase (ALT/SGPT) 15, Alkaline Phosphatase 83, Total Protein 5.9L, Albumin 2.7L, Globulin 3.2, Albumin/Globulin Ratio 0.8L Height (Feet): 5 Height (Inches): 4.00 Weight (Pounds): 103 General Appearance: alert EENT: normal ENT inspection Neck: supple Cardiovascular: normal rate Respiratory/Chest: decreased breath sounds Abdomen: normal bowel sounds, non tender, soft Extremities: non-tender Go Christianson MD Apr 05, 2018 08:29
[2018-04-05] MEDS: Aspirin Baby 81mg ORAL SCH (08:58)
[2018-04-05] MEDS: Amiodarone 200mg tab ORAL SCH (08:58)
[2018-04-05] MEDS: Pantoprazole Inj IVP SCH ×2 (08:58→20:32)
[2018-04-05] MEDS ORDERED: Lisinopril 10mg tab ORAL SCH (09:00)
[2018-04-05] MEDS: Morphine Sulfate 2mg/ml Inj IVP PRN ×2 (09:43→23:07)
[2018-04-05] MEDS ORDERED: D5 1/2NS 1000ml IV ONE (10:57)
[2018-04-05] MEDS ORDERED: D5NS 1000ml IV ONE (10:57)
--- NOTE | 2018-04-05 11:27 | Diagnostic Imaging Report ---
EXAM: MR Abdomen Without Intravenous Contrast CLINICAL HISTORY: ABD PAIN TECHNIQUE: Multiplanar magnetic resonance images of the abdomen without intravenous contrast. COMPARISON: CT of 04/03/18.. FINDINGS: As noted on CT, there is cholelithiasis. Though the examination is limited by motion, would also suspect choledocholithiasis. On series 3, images 22 and 23, there are 2 filling defects in the mid and distal common bile duct, both measuring 4 mm. Given the calcification seen on CT, I am highly suspicious for stones in the common duct. Slight dilation of the pancreatic duct. Development of moderate bilateral hydroureteronephrosis, most likely back pressure from the distended urinary bladder. This was not seen previously. When the bladder was largely decompressed. Redemonstrated diastases rectus/ventral hernia. Spinal levocurvature and degeneration. Small bilateral pleural effusions, right greater than left. Associated atelectasis or infiltrate. Cardiomegaly. IMPRESSION: Choledocholithiasis is suspected on exam that is limited by motion. 2 filling defects in the mid-distal common duct measuring 4 mm. Slight dilation of the pancreatic duct. Correlate for any clinical findings of pancreatitis. Development of moderate hydroureteronephrosis, likely back pressure from the distended urinary bladder. Small volume ascites and small pleural effusions.
--- NOTE | 2018-04-05 14:43 | General Surgery Progress Note ---
General Surgery-Progress Note Subjective Additional Comments repeat MRCP with CBD stone. Objective Last 24 Hour Vital Signs Date Time Temp Pulse Resp B/P (MAP) Pulse Ox O2 Delivery O2 Flow Rate FiO2 04/05/18 11:21 99.3 75 20 151/73 (99) 97 99.3 04/05/18 10:13 99.3 04/05/18 09:43 99.1 04/05/18 09:00 Room Air 04/05/18 08:58 177/90 04/05/18 08:00 99.1 73 18 177/90 (119) 97 99.1 04/05/18 04:00 98.7 70 180/84 (116) 98.7 04/05/18 02:00 166/85 (112) 04/05/18 01:28 188/97 (127) 04/05/18 01:13 193/92 04/05/18 01:13 193/92 (125) 04/05/18 00:30 99.9 74 20 191/98 (129) 97 99.9 04/04/18 20:40 Room Air 04/04/18 20:00 99.7 77 17 156/86 (109) 91 99.7 04/04/18 17:33 98.1 04/04/18 16:00 98.8 72 20 169/89 (115) 92 98.8 I&O Intake and Output 04/04/18 04/05/18 19:00 07:00 Intake Total 650 ml 600 ml Output Total 70 ml Balance 580 ml 600 ml IV Total 650 ml 600 ml Other 70 ml # Bowel Movements 1 2 Drains: none Cardiovascular: RSR Respiratory: clear Abdomen: soft, distended, non-tender, present bowel sounds Extremities: other Plan Problems: (1) Abdominal pain Assessment & Plan: abdominal pain with associated nausea and emesis. exam with abd distention CT with cholelithiasis possible choledocholithiasis Labs okay MRCP without choledocholithiasis CT with gastric distention Findings: Contrast was seen to exit the stomach as soon as it was injected. Limited images of the stomach are grossly unremarkable. Rapid transit of contrast through the small bowel is noted, and contrast is seen within the colon on the 30 minute film. No small bowel distention. Small bowel mucosal pattern is normal. Impression: Limited exam, demonstrating no evidence of gastric outlet obstruction and no evidence of small bowel obstruction. Transit is in fact rapid, with contrast reaching the colon at 30 minutes EGD with retained gastric contents but no obstruction noted. some gastritis. Repeat MRCP: Choledocholithiasis is suspected on exam that is limited by motion. 2 filling defects in the mid-distal common duct measuring 4 mm. Slight dilation of the pancreatic duct. Correlate for any clinical findings of pancreatitis. Development of moderate hydroureteronephrosis, likely back pressure from the distended urinary bladder. Small volume ascites and small pleural effusions. -no acute surgical intervention necessary -okay for diet from surgical standpoint. needs to be sitting up during and after meal. -appreciate GI input. -will likely need ERCP. will discuss with GI. thank you Samuel Rogers Apr 05, 2018 14:43
--- NOTE | 2018-04-05 15:17 | General Progress Note ---
Assessment/Plan Problem List: (1) Abdominal pain ICD Codes: R10.9 - Unspecified abdominal pain SNOMED: 89707385 Qualifiers: Qualified Codes: R10.84 - Generalized abdominal pain (2) Vomiting ICD Codes: R11.10 - Vomiting, unspecified SNOMED: 202095951 (3) Abdominal hernia ICD Codes: K46.9 - Unspecified abdominal hernia without obstruction or gangrene SNOMED: 15103912 (4) Common bile duct (CBD) obstruction ICD Codes: K83.1 - Obstruction of bile duct SNOMED: 343630858 Assessment/Plan IVF Discussed with Dr Rogers needs ERCP Subjective Allergies: Coded Allergies: Dairy (Verified Allergy, Severe, GI UPSET, 11/19/08) Subjective In NAD Objective Last 24 Hour Vital Signs Date Time Temp Pulse Resp B/P (MAP) Pulse Ox O2 Delivery O2 Flow Rate FiO2 04/05/18 11:21 99.3 75 20 151/73 (99) 97 99.3 04/05/18 10:13 99.3 04/05/18 09:43 99.1 04/05/18 09:00 Room Air 04/05/18 08:58 177/90 04/05/18 08:00 99.1 73 18 177/90 (119) 97 99.1 04/05/18 04:00 98.7 70 180/84 (116) 98.7 04/05/18 02:00 166/85 (112) 04/05/18 01:28 188/97 (127) 04/05/18 01:13 193/92 04/05/18 01:13 193/92 (125) 04/05/18 00:30 99.9 74 20 191/98 (129) 97 99.9 04/04/18 20:40 Room Air 04/04/18 20:00 99.7 77 17 156/86 (109) 91 99.7 04/04/18 17:33 98.1 04/04/18 16:00 98.8 72 20 169/89 (115) 92 98.8 Intake and Output 04/04/18 04/05/18 19:00 07:00 Intake Total 650 ml 600 ml Output Total 70 ml Balance 580 ml 600 ml IV Total 650 ml 600 ml Other 70 ml # Bowel Movements 1 2 Height (Feet): 5 Height (Inches): 4.00 Weight (Pounds): 103 Cardiovascular: normal rate Respiratory/Chest: lungs clear Abdomen: soft Simeon Mccallum MD Apr 05, 2018 15:17
--- NOTE | 2018-04-05 15:22 | Cardiology Progress Note ---
Assessment/Plan Problem List: (1) Hypertension (2) Abdominal hernia (3) Vomiting (4) Common bile duct (CBD) obstruction (5) CAD (coronary artery disease) Status: stable, unchanged Status Narrative Mrs. Abad has n/v, abd pain in setting of choledocholithiasis. GI and surgery following. She has hx of CAD, w/ previous CABG. No current angina or chf symptoms. hx of PAF - appears in SR She has hypertension, not well controlled Assessment/Plan Evaluation and treatment of common bile duct stone per GI. Add lisinopril for BP control continue clonidine Continue amiodarone for PAF and hold anticoagulation. Subjective ROS Limited/Unobtainable: No Subjective Cardiology for Dr. Gross Mrs. Abad c/o nausea, abd discomfort. No chest pain or dyspnea Events noted. Objective Last 24 Hour Vital Signs Date Time Temp Pulse Resp B/P (MAP) Pulse Ox O2 Delivery O2 Flow Rate FiO2 04/05/18 11:21 99.3 75 20 151/73 (99) 97 99.3 04/05/18 10:13 99.3 04/05/18 09:43 99.1 04/05/18 09:00 Room Air 04/05/18 08:58 177/90 04/05/18 08:00 99.1 73 18 177/90 (119) 97 99.1 04/05/18 04:00 98.7 70 180/84 (116) 98.7 04/05/18 02:00 166/85 (112) 04/05/18 01:28 188/97 (127) 04/05/18 01:13 193/92 04/05/18 01:13 193/92 (125) 04/05/18 00:30 99.9 74 20 191/98 (129) 97 99.9 04/04/18 20:40 Room Air 04/04/18 20:00 99.7 77 17 156/86 (109) 91 99.7 04/04/18 17:33 98.1 04/04/18 16:00 98.8 72 20 169/89 (115) 92 98.8 General Appearance: WD/WN, alert, mild distress, thin EENT: PERRL/EOMI Neck: supple, no JVD Rhythm: NSR Cardiovascular: normal rate, regular rhythm, other - s1s2 with a ii/vi HSM at apex, radiating to axilla. no s3, s4 Respiratory/Chest: lungs clear, no respiratory distress Abdomen: soft, other - Dec BS. mild distension. + large ventral hernia. no mass. + mild diffuse tenderness Extremities: no swelling Intake and Output 04/04/18 04/05/18 19:00 07:00 Intake Total 650 ml 600 ml Output Total 70 ml Balance 580 ml 600 ml IV Total 650 ml 600 ml Other 70 ml # Bowel Movements 1 2 Labs Test 04/04/18 10:00 White Blood Count 11.2 K/UL (4.8-10.8) Red Blood Count 3.26 M/UL (4.20-5.40) Hemoglobin 9.9 G/DL (12.0-16.0) Hematocrit 30.7 % (37.0-47.0) Mean Corpuscular Volume 94 FL (80-99) Mean Corpuscular Hemoglobin 30.3 PG (27.0-31.0) Mean Corpuscular Hemoglobin Concent 32.1 G/DL (32.0-36.0) Red Cell Distribution Width 13.9 % (11.6-14.8) Platelet Count 148 K/UL (150-450) Mean Platelet Volume 7.5 FL (6.5-10.1) Neutrophils (%) (Auto) 82.5 % (45.0-75.0) Lymphocytes (%) (Auto) 10.0 % (20.0-45.0) Monocytes (%) (Auto) 7.0 % (1.0-10.0) Eosinophils (%) (Auto) 0.1 % (0.0-3.0) Basophils (%) (Auto) 0.4 % (0.0-2.0) Sodium Level 139 MMOL/L (136-145) Potassium Level 3.2 MMOL/L (3.5-5.1) Chloride Level 101 MMOL/L (98-107) Carbon Dioxide Level 35 MMOL/L (21-32) Anion Gap 3 mmol/L (5-15) Blood Urea Nitrogen 22 mg/dL (7-18) Creatinine 0.7 MG/DL (0.55-1.30) Estimat Glomerular Filtration Rate mL/min (>60) Glucose Level 102 MG/DL (74-106) Calcium Level 9.2 MG/DL (8.5-10.1) Total Bilirubin 0.8 MG/DL (0.2-1.0) Aspartate Amino Transf (AST/SGOT) 22 U/L (15-37) Alanine Aminotransferase (ALT/SGPT) 15 U/L (12-78) Alkaline Phosphatase 83 U/L (46-116) Total Protein 5.9 G/DL (6.4-8.2) Albumin 2.7 G/DL (3.4-5.0) Globulin 3.2 g/dL Albumin/Globulin Ratio 0.8 (1.0-2.7) Rena Mello MD Apr 05, 2018 15:22
[2018-04-06] VITALS (7 sets, daily range): BP systolic 152–185; BP diastolic 72–86
[2018-04-06] MEDS: D5 1/2NS 1,000 ML IV SCH ×2 (02:49→16:28)
[2018-04-06] MEDS: Levothyroxine 25mcg tab ORAL SCH (05:47)
[2018-04-06] MEDS: Nitroglycerin 2% oint pkt TOPIC SCH ×4 (05:47→23:52)
--- NOTE | 2018-04-06 07:55 | General Progress Note ---
Assessment/Plan Assessment/Plan Assessment - large ventral hernia - abd pain, L>R - cholelithiasis, ? choledocholithiasis based on CT and MRCP - s/p (R) hemicolectomy - CAD / CABG -SBFT reviewed Recommendations - advance diet - IVF - PPI -fu biopsy results -D/W family and patient at length>>> plan ERCP if cleared by cardiology EGD: (04/04) - Still with about 300-400 cc of semi- liquid dark green gastric contents, despite NGT suction overnight - only able to suction out 200 cc, the remain is semi-solid material - no obstructive process noted, able to pass into duodenum - mild proximal gastritis and mild esophageal erythema noted, some portions of fundus obscured by residual food - random gastric biopsies sent to pathology Subjective ROS Limited/Unobtainable: Yes Allergies: Coded Allergies: Dairy (Verified Allergy, Severe, GI UPSET, 11/19/08) Subjective had BM Objective Last 24 Hour Vital Signs Date Time Temp Pulse Resp B/P (MAP) Pulse Ox O2 Delivery O2 Flow Rate FiO2 04/06/18 05:47 165/86 04/06/18 05:10 99.0 71 18 165/86 (112) 95 99.0 04/06/18 00:00 185/84 (117) 04/05/18 23:03 100.0 71 18 186/89 (121) 95 100.0 04/05/18 21:29 182/90 04/05/18 21:00 Room Air 04/05/18 20:30 182/90 (120) 04/05/18 19:41 98.9 70 16 189/84 (119) 94 98.9 04/05/18 17:17 178/88 04/05/18 16:00 97.9 69 20 178/88 (118) 98 97.9 04/05/18 11:21 99.3 75 20 151/73 (99) 97 99.3 04/05/18 10:13 99.3 04/05/18 09:43 99.1 04/05/18 09:00 Room Air 04/05/18 08:58 177/90 04/05/18 08:00 99.1 73 18 177/90 (119) 97 99.1 Intake and Output 04/05/18 04/06/18 19:00 07:00 Intake Total 1100 ml 525 ml Balance 1100 ml 525 ml Intake Oral 200 ml 150 ml IV Total 900 ml 375 ml # Voids 2 3 Height (Feet): 5 Height (Inches): 4.00 Weight (Pounds): 103 General Appearance: alert EENT: normal ENT inspection Neck: supple Cardiovascular: normal rate Respiratory/Chest: decreased breath sounds Abdomen: normal bowel sounds, non tender, soft Extremities: non-tender Go Christianson MD Apr 06, 2018 07:55
[2018-04-06 08:22] LABS: HEMATOCRIT 31.2 % (37.0-47.0); MEAN CORPUSCULAR VOLUME 94 FL (80-99); PLATELET COUNT 146 K/UL (150-450); RED BLOOD COUNT 3.32 M/UL (4.20-5.40); RED CELL DISTRIBUTION WIDTH 13.8 % (11.6-14.8); WHITE BLOOD COUNT 11.5 K/UL (4.8-10.8)
[2018-04-06 08:47] LABS: ALANINE AMINOTRANSFERASE 16 U/L (12-78); ALBUMIN 2.7 G/DL (3.4-5.0); ALBUMIN/GLOBULIN RATIO 0.8 (1.0-2.7); ALKALINE PHOSPHATASE 79 U/L (46-116); ANION GAP 4 mmol/L (5-15); ASPARTATE AMINO TRANSFERASE 20 U/L (15-37); BILIRUBIN,TOTAL 1.2 MG/DL (0.2-1.0); BLOOD UREA NITROGEN 24 mg/dL (7-18); CALCIUM 9.2 MG/DL (8.5-10.1); CARBON DIOXIDE 33 MMOL/L (21-32); CHLORIDE 102 MMOL/L (98-107); CREATININE 0.9 MG/DL (0.55-1.30); POTASSIUM 3.7 MMOL/L (3.5-5.1); SODIUM 139 MMOL/L (136-145)
[2018-04-06 08:56] LABS: BILIRUBIN,DIRECT 0.3 MG/DL (0.0-0.3)
[2018-04-06] MEDS ORDERED: Lisinopril 10mg tab ORAL SCH (09:00)
[2018-04-06] MEDS: Aspirin Baby 81mg ORAL SCH (09:10)
[2018-04-06] MEDS: Amiodarone 200mg tab ORAL SCH (09:10)
[2018-04-06] MEDS: Lisinopril 10mg tab ORAL SCH ×2 (09:10→18:07)
[2018-04-06] MEDS: Pantoprazole Inj IVP SCH ×2 (09:11→20:38)
--- NOTE | 2018-04-06 13:00 | General Surgery Progress Note ---
General Surgery-Progress Note Subjective Additional Comments no acute events. comfortable. with son at bedside. Objective Last 24 Hour Vital Signs Date Time Temp Pulse Resp B/P (MAP) Pulse Ox O2 Delivery O2 Flow Rate FiO2 04/06/18 12:14 152/79 04/06/18 12:00 98.4 65 18 152/79 (103) 96 98.4 04/06/18 09:10 179/86 04/06/18 09:00 Room Air 04/06/18 08:05 100.0 66 18 179/86 (117) 94 100.0 04/06/18 05:47 165/86 04/06/18 05:10 99.0 71 18 165/86 (112) 95 99.0 04/06/18 00:00 185/84 (117) 04/05/18 23:03 100.0 71 18 186/89 (121) 95 100.0 04/05/18 21:29 182/90 04/05/18 21:00 Room Air 04/05/18 20:30 182/90 (120) 04/05/18 19:41 98.9 70 16 189/84 (119) 94 98.9 04/05/18 17:17 178/88 04/05/18 16:00 97.9 69 20 178/88 (118) 98 97.9 I&O Intake and Output 04/05/18 04/06/18 19:00 07:00 Intake Total 1100 ml 525 ml Balance 1100 ml 525 ml Intake Oral 200 ml 150 ml IV Total 900 ml 375 ml # Voids 2 3 Drains: none Cardiovascular: RSR Respiratory: clear Abdomen: soft, distended, non-tender, present bowel sounds Extremities: no cyanosis Laboratory Tests Test 04/06/18 07:55 White Blood Count 11.5 K/UL (4.8-10.8) H Red Blood Count 3.32 M/UL (4.20-5.40) L Hemoglobin 10.0 G/DL (12.0-16.0) L Hematocrit 31.2 % (37.0-47.0) L Mean Corpuscular Volume 94 FL (80-99) Mean Corpuscular Hemoglobin 30.2 PG (27.0-31.0) Mean Corpuscular Hemoglobin Concent 32.1 G/DL (32.0-36.0) Red Cell Distribution Width 13.8 % (11.6-14.8) Platelet Count 146 K/UL (150-450) L Mean Platelet Volume 7.8 FL (6.5-10.1) Neutrophils (%) (Auto) % (45.0-75.0) Lymphocytes (%) (Auto) % (20.0-45.0) Monocytes (%) (Auto) % (1.0-10.0) Eosinophils (%) (Auto) % (0.0-3.0) Basophils (%) (Auto) % (0.0-2.0) Differential Total Cells Counted 100 Neutrophils % (Manual) 90 % (45-75) H Lymphocytes % (Manual) 4 % (20-45) L Monocytes % (Manual) 5 % (1-10) Eosinophils % (Manual) 1 % (0-3) Basophils % (Manual) 0 % (0-2) Band Neutrophils 0 % (0-8) Platelet Estimate Adequate Platelet Morphology Normal Hypochromasia 1+ Sodium Level 139 MMOL/L (136-145) Potassium Level 3.7 MMOL/L (3.5-5.1) Chloride Level 102 MMOL/L (98-107) Carbon Dioxide Level 33 MMOL/L (21-32) H Anion Gap 4 mmol/L (5-15) L Blood Urea Nitrogen 24 mg/dL (7-18) H Creatinine 0.9 MG/DL (0.55-1.30) Estimat Glomerular Filtration Rate mL/min (>60) Glucose Level 114 MG/DL (74-106) H Calcium Level 9.2 MG/DL (8.5-10.1) Total Bilirubin 1.2 MG/DL (0.2-1.0) H Direct Bilirubin 0.3 MG/DL (0.0-0.3) Aspartate Amino Transf (AST/SGOT) 20 U/L (15-37) Alanine Aminotransferase (ALT/SGPT) 16 U/L (12-78) Alkaline Phosphatase 79 U/L (46-116) Total Protein 6.2 G/DL (6.4-8.2) L Albumin 2.7 G/DL (3.4-5.0) L Globulin 3.5 g/dL Albumin/Globulin Ratio 0.8 (1.0-2.7) L Plan Problems: (1) Abdominal pain Assessment & Plan: abdominal pain with associated nausea and emesis. exam with abd distention CT with cholelithiasis possible choledocholithiasis Labs okay MRCP without choledocholithiasis CT with gastric distention Findings: Contrast was seen to exit the stomach as soon as it was injected. Limited images of the stomach are grossly unremarkable. Rapid transit of contrast through the small bowel is noted, and contrast is seen within the colon on the 30 minute film. No small bowel distention. Small bowel mucosal pattern is normal. Impression: Limited exam, demonstrating no evidence of gastric outlet obstruction and no evidence of small bowel obstruction. Transit is in fact rapid, with contrast reaching the colon at 30 minutes EGD with retained gastric contents but no obstruction noted. some gastritis. Repeat MRCP: Choledocholithiasis is suspected on exam that is limited by motion. 2 filling defects in the mid-distal common duct measuring 4 mm. Slight dilation of the pancreatic duct. Correlate for any clinical findings of pancreatitis. Development of moderate hydroureteronephrosis, likely back pressure from the distended urinary bladder. Small volume ascites and small pleural effusions. -no acute surgical intervention necessary -okay for diet from surgical standpoint. needs to be sitting up during and after meal. -appreciate GI input. -will likely need ERCP. planned for when cleared by cardiology thank you Samuel Rogers Apr 06, 2018 13:00
--- NOTE | 2018-04-06 14:41 | Cardiology Progress Note ---
Assessment/Plan Problem List: (1) Hypertension (2) Abdominal hernia (3) Vomiting (4) Common bile duct (CBD) obstruction (5) CAD (coronary artery disease) Status: stable, progressing Status Narrative Mrs. Abad has n/v, abd pain in setting of choledocholithiasis. GI and surgery following. She has hx of CAD, w/ previous CABG, and MR. No current angina or chf symptoms. hx of PAF - appears in SR She remains w/ elevated BPs Assessment/Plan Evaluation and treatment of common bile duct stone per GI. - ERCP planned Continue clonidine patch, lisinopril 20 mg bid, and will add amlodipine for BP control receiving iv enalapril prn Continue amiodarone for PAF and hold anticoagulation. Subjective ROS Limited/Unobtainable: No Subjective Cardiology for Dr. Gross Mrs. Abad c/o abd discomfort. No chest pain or dyspnea Objective Last 24 Hour Vital Signs Date Time Temp Pulse Resp B/P (MAP) Pulse Ox O2 Delivery O2 Flow Rate FiO2 04/06/18 12:14 152/79 04/06/18 12:00 98.4 65 18 152/79 (103) 96 98.4 04/06/18 09:10 179/86 04/06/18 09:00 Room Air 04/06/18 08:05 100.0 66 18 179/86 (117) 94 100.0 04/06/18 05:47 165/86 04/06/18 05:10 99.0 71 18 165/86 (112) 95 99.0 04/06/18 00:00 185/84 (117) 04/05/18 23:03 100.0 71 18 186/89 (121) 95 100.0 04/05/18 21:29 182/90 04/05/18 21:00 Room Air 04/05/18 20:30 182/90 (120) 04/05/18 19:41 98.9 70 16 189/84 (119) 94 98.9 04/05/18 17:17 178/88 04/05/18 16:00 97.9 69 20 178/88 (118) 98 97.9 General Appearance: WD/WN, no apparent distress, alert EENT: PERRL/EOMI Neck: non-tender, no JVD Rhythm: NSR Cardiovascular: normal peripheral pulses, normal rate, regular rhythm, other - rrr s1s2 with a iii/vi HSM LLSB radiating to apex, axilla. Respiratory/Chest: lungs clear Abdomen: normal bowel sounds, soft, distended, other - + diffuse tenderness w/ o guarding or rebound. + vent hernia Extremities: no swelling Intake and Output 04/05/18 04/06/18 19:00 07:00 Intake Total 1100 ml 525 ml Balance 1100 ml 525 ml Intake Oral 200 ml 150 ml IV Total 900 ml 375 ml # Voids 2 3 Laboratory Tests Test 04/06/18 07:55 White Blood Count 11.5 K/UL (4.8-10.8) H Red Blood Count 3.32 M/UL (4.20-5.40) L Hemoglobin 10.0 G/DL (12.0-16.0) L Hematocrit 31.2 % (37.0-47.0) L Mean Corpuscular Volume 94 FL (80-99) Mean Corpuscular Hemoglobin 30.2 PG (27.0-31.0) Mean Corpuscular Hemoglobin Concent 32.1 G/DL (32.0-36.0) Red Cell Distribution Width 13.8 % (11.6-14.8) Platelet Count 146 K/UL (150-450) L Mean Platelet Volume 7.8 FL (6.5-10.1) Neutrophils (%) (Auto) % (45.0-75.0) Lymphocytes (%) (Auto) % (20.0-45.0) Monocytes (%) (Auto) % (1.0-10.0) Eosinophils (%) (Auto) % (0.0-3.0) Basophils (%) (Auto) % (0.0-2.0) Differential Total Cells Counted 100 Neutrophils % (Manual) 90 % (45-75) H Lymphocytes % (Manual) 4 % (20-45) L Monocytes % (Manual) 5 % (1-10) Eosinophils % (Manual) 1 % (0-3) Basophils % (Manual) 0 % (0-2) Band Neutrophils 0 % (0-8) Platelet Estimate Adequate Platelet Morphology Normal Hypochromasia 1+ Sodium Level 139 MMOL/L (136-145) Potassium Level 3.7 MMOL/L (3.5-5.1) Chloride Level 102 MMOL/L (98-107) Carbon Dioxide Level 33 MMOL/L (21-32) H Anion Gap 4 mmol/L (5-15) L Blood Urea Nitrogen 24 mg/dL (7-18) H Creatinine 0.9 MG/DL (0.55-1.30) Estimat Glomerular Filtration Rate mL/min (>60) Glucose Level 114 MG/DL (74-106) H Calcium Level 9.2 MG/DL (8.5-10.1) Total Bilirubin 1.2 MG/DL (0.2-1.0) H Direct Bilirubin 0.3 MG/DL (0.0-0.3) Aspartate Amino Transf (AST/SGOT) 20 U/L (15-37) Alanine Aminotransferase (ALT/SGPT) 16 U/L (12-78) Alkaline Phosphatase 79 U/L (46-116) Total Protein 6.2 G/DL (6.4-8.2) L Albumin 2.7 G/DL (3.4-5.0) L Globulin 3.5 g/dL Albumin/Globulin Ratio 0.8 (1.0-2.7) Rena Chavis MD Apr 06, 2018 14:41
--- NOTE | 2018-04-06 17:33 | General Progress Note ---
Assessment/Plan Problem List: (1) Abdominal pain ICD Codes: R10.9 - Unspecified abdominal pain SNOMED: 17652459 Qualifiers: Qualified Codes: R10.84 - Generalized abdominal pain (2) Vomiting ICD Codes: R11.10 - Vomiting, unspecified SNOMED: 848457388 (3) Abdominal hernia ICD Codes: K46.9 - Unspecified abdominal hernia without obstruction or gangrene SNOMED: 75758978 (4) Common bile duct (CBD) obstruction ICD Codes: K83.1 - Obstruction of bile duct SNOMED: 062459463 Assessment/Plan IVF follow labs Await ERCP Subjective Allergies: Coded Allergies: Dairy (Verified Allergy, Severe, GI UPSET, 11/19/08) Subjective In NAD Objective Last 24 Hour Vital Signs Date Time Temp Pulse Resp B/P (MAP) Pulse Ox O2 Delivery O2 Flow Rate FiO2 04/06/18 16:23 65 152/79 04/06/18 12:14 152/79 04/06/18 12:00 98.4 65 18 152/79 (103) 96 98.4 04/06/18 09:10 179/86 04/06/18 09:00 Room Air 04/06/18 08:05 100.0 66 18 179/86 (117) 94 100.0 04/06/18 05:47 165/86 04/06/18 05:10 99.0 71 18 165/86 (112) 95 99.0 04/06/18 00:00 185/84 (117) 04/05/18 23:03 100.0 71 18 186/89 (121) 95 100.0 04/05/18 21:29 182/90 04/05/18 21:00 Room Air 04/05/18 20:30 182/90 (120) 04/05/18 19:41 98.9 70 16 189/84 (119) 94 98.9 Intake and Output 04/05/18 04/06/18 19:00 07:00 Intake Total 1100 ml 525 ml Balance 1100 ml 525 ml Intake Oral 200 ml 150 ml IV Total 900 ml 375 ml # Voids 2 3 Laboratory Tests 04/06/18 07:55: White Blood Count 11.5H, Red Blood Count 3.32L, Hemoglobin 10.0L, Hematocrit 31.2L, Mean Corpuscular Volume 94, Mean Corpuscular Hemoglobin 30.2, Mean Corpuscular Hemoglobin Concent 32.1, Red Cell Distribution Width 13.8, Platelet Count 146L, Mean Platelet Volume 7.8, Neutrophils (%) (Auto) , Lymphocytes (%) ( Auto) , Monocytes (%) (Auto) , Eosinophils (%) (Auto) , Basophils (%) (Auto) , Differential Total Cells Counted 100, Neutrophils % (Manual) 90H, Lymphocytes % (Manual) 4L, Monocytes % (Manual) 5, Eosinophils % (Manual) 1, Basophils % ( Manual) 0, Band Neutrophils 0, Platelet Estimate Adequate, Platelet Morphology Normal, Hypochromasia 1+, Sodium Level 139, Potassium Level 3.7, Chloride Level 102, Carbon Dioxide Level 33H, Anion Gap 4L, Blood Urea Nitrogen 24H, Creatinine 0.9, Estimat Glomerular Filtration Rate , Glucose Level 114H, Calcium Level 9.2, Total Bilirubin 1.2H, Direct Bilirubin 0.3, Aspartate Amino Transf (AST/SGOT) 20, Alanine Aminotransferase (ALT/SGPT) 16, Alkaline Phosphatase 79, Total Protein 6.2L, Albumin 2.7L, Globulin 3.5, Albumin/ Globulin Ratio 0.8L Height (Feet): 5 Height (Inches): 4.00 Weight (Pounds): 103 Cardiovascular: normal rate Respiratory/Chest: lungs clear Simeon Mccallum MD Apr 06, 2018 17:33
[2018-04-07] VITALS (12 sets, daily range): BP systolic 144–204; BP diastolic 78–99
[2018-04-07] MEDS: Levothyroxine 25mcg tab ORAL SCH (05:42)
[2018-04-07] MEDS: Nitroglycerin 2% oint pkt TOPIC SCH ×3 (05:42→17:07)
[2018-04-07] MEDS: D5 1/2NS 1,000 ML IV SCH ×2 (05:45→19:16)
[2018-04-07] MEDS: Pantoprazole Inj IVP SCH ×2 (08:52→20:50)
[2018-04-07] MEDS: Amiodarone 200mg tab ORAL SCH (09:00)
[2018-04-07] MEDS: Aspirin Baby 81mg ORAL SCH (09:00)
[2018-04-07] MEDS: Lisinopril 10mg tab ORAL SCH ×2 (09:00→17:06)
--- NOTE | 2018-04-07 10:26 | Pre-Procedure Note/Attestation ---
Pre-Procedure Note/Attestation Complete Prior to Procedure Planned Procedure: not applicable Procedure Narrative: ercp Indications for Procedure Pre-Operative Diagnosis: choledocholithiasis Attestation I attest that I discussed the nature of the procedure; its benefits; risks and complications; and alternatives (and the risks and benefits of such alternatives ), prior to the procedure, with the patient (or the patient's legal promotional representative). I attest that, if there was a reasonable possibility of needing a blood transfusion, the patient (or the patient's legal promotional representative) was given the [facility] standardized written summary, pursuant to the [employer] Blood Safety Act ([place] Health and Safety Code # 1645, as amended). I attest that I re-evaluated the patient just prior to the surgery and that there has been no change in the patient's H&P, except as documented below: Go Christianson MD Apr 07, 2018 10:26
[2018-04-07] MEDS ORDERED: Iothalamate Meglumine 60% 30ML INJ ONE ×2 (10:37→11:46)
[2018-04-07] MEDS ORDERED: NS 500ML IVPB ONE (11:15)
[2018-04-07] MEDS ORDERED: Midazolam 2mg/2ml Inj ONE (11:30)
[2018-04-07] MEDS ORDERED: fentaNYL 100 mcg/2 mL IV ONE ×2 (11:30→12:35)
[2018-04-07] MEDS ORDERED: Propofol 200mg/20ml IV ONE (11:30)
--- NOTE | 2018-04-07 12:23 | General Surgery Progress Note ---
General Surgery-Progress Note Subjective Additional Comments no acute events. comfortable. planned ERCP today Objective Last 24 Hour Vital Signs Date Time Temp Pulse Resp B/P (MAP) Pulse Ox O2 Delivery O2 Flow Rate FiO2 04/07/18 09:00 Room Air 04/07/18 09:00 70 144/78 04/07/18 09:00 144/78 04/07/18 08:00 100.0 70 20 144/78 (100) 91 100.0 04/07/18 05:42 156/80 04/07/18 04:02 99.1 72 18 156/80 (105) 92 99.1 04/06/18 23:52 160/82 04/06/18 23:47 99.0 68 16 160/82 (108) 92 99.0 04/06/18 20:56 Room Air 04/06/18 20:00 98.7 67 18 152/79 (103) 90 98.7 04/06/18 18:07 161/72 04/06/18 18:07 161/72 04/06/18 16:23 65 152/79 04/06/18 16:00 99.1 60 18 161/72 (101) 94 99.1 I&O Intake and Output 04/06/18 04/07/18 19:00 07:00 Intake Total 1000 ml 1045 ml Balance 1000 ml 1045 ml Intake Oral 150 ml 120 ml IV Total 850 ml 925 ml # Voids 3 3 # Bowel Movements 2 1 Drains: none Cardiovascular: RSR Respiratory: clear Abdomen: soft, distended, present bowel sounds Extremities: no edema, no tenderness, other Plan Problems: (1) Abdominal pain Assessment & Plan: abdominal pain with associated nausea and emesis. exam with abd distention CT with cholelithiasis possible choledocholithiasis Labs okay MRCP without choledocholithiasis CT with gastric distention Findings: Contrast was seen to exit the stomach as soon as it was injected. Limited images of the stomach are grossly unremarkable. Rapid transit of contrast through the small bowel is noted, and contrast is seen within the colon on the 30 minute film. No small bowel distention. Small bowel mucosal pattern is normal. Impression: Limited exam, demonstrating no evidence of gastric outlet obstruction and no evidence of small bowel obstruction. Transit is in fact rapid, with contrast reaching the colon at 30 minutes EGD with retained gastric contents but no obstruction noted. some gastritis. Repeat MRCP: Choledocholithiasis is suspected on exam that is limited by motion. 2 filling defects in the mid-distal common duct measuring 4 mm. Slight dilation of the pancreatic duct. Correlate for any clinical findings of pancreatitis. Development of moderate hydroureteronephrosis, likely back pressure from the distended urinary bladder. Small volume ascites and small pleural effusions. ERCP - no filling defects. CBD okay. -no acute surgical intervention necessary -okay for diet from surgical standpoint. needs to be sitting up during and after meal. -appreciate GI input. thank you Samuel Rogers Apr 07, 2018 12:23
[2018-04-07] MEDS ORDERED: LR 1000ml 1,000 ML IVLG SCH (12:26)
--- NOTE | 2018-04-07 12:26 | Immediate Post-Op Evaluation ---
Immediate Post-Op Evalulation Immediate Post-Op Evalulation Procedure: ERCP sphincyterotomy Date of Evaluation: Apr 07, 2018 Time of Evaluation: 12:25 IV Fluids: 300 Blood Products: none Estimated Blood Loss: none Urinary Output: none Blood Pressure Systolic: 185 Blood Pressure Diastolic: 84 Pulse Rate: 63 Respiratory Rate: 22 O2 Sat by Pulse Oximetry: 98 Temperature (Fahrenheit): 97.8 Pain Score (1-10): 2 Nausea: No Vomiting: No Complications none Patient Status: reacts, patent, none Hydration Status: adequate oM Barr MD Apr 07, 2018 12:26
--- NOTE | 2018-04-07 12:28 | General Progress Note ---
Assessment/Plan Problem List: (1) Abdominal pain ICD Codes: R10.9 - Unspecified abdominal pain SNOMED: [id number] Qualifiers: Qualified Codes: R10.84 - Generalized abdominal pain (2) Vomiting ICD Codes: R11.10 - Vomiting, unspecified SNOMED: 381767121 (3) Abdominal hernia ICD Codes: K46.9 - Unspecified abdominal hernia without obstruction or gangrene SNOMED: 85624616 (4) Common bile duct (CBD) obstruction ICD Codes: K83.1 - Obstruction of bile duct SNOMED: 293219060 Assessment/Plan ERCP today follow labs IVF Subjective Allergies: Coded Allergies: Dairy (Verified Allergy, Severe, GI UPSET, 11/19/08) Subjective all notedf Objective Last 24 Hour Vital Signs Date Time Temp Pulse Resp B/P (MAP) Pulse Ox O2 Delivery O2 Flow Rate FiO2 04/07/18 09:00 Room Air 04/07/18 09:00 70 144/78 04/07/18 09:00 144/78 04/07/18 08:00 100.0 70 20 144/78 (100) 91 100.0 04/07/18 05:42 156/80 04/07/18 04:02 99.1 72 18 156/80 (105) 92 99.1 04/06/18 23:52 160/82 04/06/18 23:47 99.0 68 16 160/82 (108) 92 99.0 04/06/18 20:56 Room Air 04/06/18 20:00 98.7 67 18 152/79 (103) 90 98.7 04/06/18 18:07 161/72 04/06/18 18:07 161/72 04/06/18 16:23 65 152/79 04/06/18 16:00 99.1 60 18 161/72 (101) 94 99.1 Intake and Output 04/06/18 04/07/18 19:00 07:00 Intake Total 1000 ml 1045 ml Balance 1000 ml 1045 ml Intake Oral 150 ml 120 ml IV Total 850 ml 925 ml # Voids 3 3 # Bowel Movements 2 1 Height (Feet): 5 Height (Inches): 4.00 Weight (Pounds): 103 Simeon Mccallum MD Apr 07, 2018 12:28
--- NOTE | 2018-04-07 12:29 | Endoscopy Procedure Note ---
Endoscopy Procedure Note General Indication for Procedure: choledocholithiasis Procedures Performed: ERCP Operative Findings/Diagnosis: same Specimen: none Pt Tolerated Procedure Well: Yes Estimated Blood Loss: none Anesthesia Anesthesiologist: gorge Anesthesia: MAC Inserted Devices Implant(s) used?: No GI Core Measures 50 yrs or older w/o bx or poly: Not Applicable 10yrs. F/U not recommended: Not Applicable Go Christianson MD Apr 07, 2018 12:29
[2018-04-07] MEDS ORDERED: fentaNYL 100 mcg/2 mL IV PRN (12:30)
--- NOTE | 2018-04-07 13:08 | Anethesia Preoperative Eval ---
Anesthesia Pre-op PMH/ROS General Date of Evaluation: Apr 07, 2018 Time of Evaluation: 08:30 Anesthesiologist: Cortney ASA Score: ASA 4 Mallampati Score Class I : Soft palate, uvula, fauces, pillars visible Class II: Soft palate, uvula, fauces visible Class III: Soft palate, base of uvula visible Class IV: Only hard plate visible Mallampati Classification: Class III Surgeon: Meghan Diagnosis: Abdominal pain Surgical Procedure: ERCP Anesthesia History: none Family History: no anesthesia problems Allergies: Coded Allergies: Dairy (Verified Allergy, Severe, GI UPSET, 11/19/08) Medications: see eMAR Past Medical History Cardiovascular: Reports: HTN, CAD, arrhythmia - AF Pulmonary: Denies: asthma, COPD, TALON, other Gastrointestinal/Genitourinary: Reports: GERD, other - Ventral hernia; Denies: CRI, ESRD Neurologic/Psychiatric: Reports: dementia, depression/anxiety; Denies: CVA, TIA, other Endocrine: Reports: DM, hypothyroidism; Denies: steroids, other HEENT: Denies: cataract (L), cataract (R), glaucoma, NISQUALLY (L), NISQUALLY (R), other Hematology/Immune: Reports: anemia; Denies: DVT, bleeding disorder, other Musculoskeletal/Integumentary: Reports: DJD; Denies: OA, RA, DDD, edema, other Other: other - malnourished PMH Narrative: as above PSxH Narrative: CABG Anesthesia Pre-op Phys. Exam Physician Exam Last Vital Signs Date Time Temp Pulse Resp B/P (MAP) Pulse Ox O2 Delivery O2 Flow Rate FiO2 04/07/18 12:50 64 19 179/88 100 Nasal Cannula 3 04/07/18 12:40 98.2 Constitutional: NAD Neurologic: other - unable to obtaine Cardiovascular: RRR, no M/R/G Respiratory: CTA Gastrointestinal: other - Ventral hernia Airway Exam Mallampati Score: Class III MO: limited Neck: stiff ROM: limited Teeth: missing Dentures: no upper, no lower Anesthesia Pre-op A/P Labs see chart Risk Assessment & Plan Assessment: ASA 4 Plan: MAC Status Change Before Surgery: Mo Eason MD Apr 07, 2018 13:08
--- NOTE | 2018-04-07 13:09 | 48 Hour Post Anesthesia Eval ---
Post Anesthesia Evaluation Procedure: ERCP sphincterotomy Date of Evaluation: Apr 07, 2018 Time of Evaluation: 13:08 Blood Pressure Systolic: 172 0: 86 Pulse Rate: 68 Respiratory Rate: 22 Temperature (Fahrenheit): 97.8 O2 Sat by Pulse Oximetry: 97 Airway: patent Nausea: No Vomiting: No Pain Intensity: 2 Hydration Status: adequate Cardiopulmonary Status: stable Mental Status/LOC: patient returned to baseline Follow-up Care/Observations: n/a Post-Anesthesia Complications: none Follow-up care needed: N/A Mo Barr MD Apr 07, 2018 13:09
--- NOTE | 2018-04-07 13:50 | Diagnostic Imaging Report ---
INDICATION: Pain, intraoperative TECHNIQUE: Intraoperative imaging during ERCP by Dr. Christianson Fluoroscopy time: 2.4 seconds Total dose: 252 dGym2 Total number of images: 8 COMPARISON: None FINDINGS: Material Mover image demonstrates contrast within bowel, presumably from prior small bowel follow-through. Procedural images demonstrate opacification of the common bile duct, common hepatic duct, proximal intrahepatic ducts, and gallbladder. There is questionably some extraluminal content along side the common bile duct. IMPRESSION: Intraoperative imaging, as described
[2018-04-07] MEDS: Morphine Sulfate 2mg/ml Inj IVP PRN (14:56)
--- NOTE | 2018-04-07 17:44 | Procedure Note ---
DATE OF PROCEDURE: 04/07/2018 SURGEON: Go Christianson M.D. ANESTHESIOLOGIST: Dr. Barr. REFERRING PHYSICIAN: Cecilio Hendricks M.D. PROCEDURE: ERCP with sphincterotomy and stone removal. ANESTHESIA: Per Dr. Barr. INSTRUMENT: Olymp[employer] ERCP scope. INDICATION: Choledocholithiasis. The procedure, risks, benefits, and possible consequences, including hemorrhage, aspiration, perforation and infection, and alternative treatments, were explained to the patient/legal guardian by Dr. Go Christianson and the patient/legal guardian understood and accepted these risks. DESCRIPTION OF PROCEDURE: After informed consent was obtained and the patient was adequately sedated, ERCP scope was advanced from the mouth to the second portion of duodenum. This procedure was done in the supine position. The patient's body habitus would not let us put her in prone position. Using a sphincterotome, common bile duct was selectively cannulated. Initial cholangiogram showed common bile duct measured roughly about 6-7 mm. Cystic duct takeoff was actually close to the ampulla, about 3-4 cm from the opening of the ampulla. The patient had a very short cystic duct and then the gallbladder was rapidly filled with contrast. At this time, over a guidewire, 95% sphincterotomy was performed. A balloon was used to sweep the duct multiple times and to remove some sludge from the distal common bile duct. Post balloon occlusion cholangiogram showed no filling defect in the common bile duct. The flow of contrast from common bile duct into the duodenum was excellent, so no stent was placed. SUMMARY OF FINDINGS: 1. Status post ERCP, sphincterotomy, balloon assist in sweeping the duct, and removing some sludge. 2. Short cystic duct takeoff close to the ampulla about 4 cm from the opening of the ampulla with gallbladder filled with contrast without any obvious stone. RECOMMENDATIONS: At this time, we will discuss with the surgeon regarding possibility or need for cholecystectomy. At this time, there is no obvious stone seen in this procedure and there was no obvious common bile duct dilatation. The patient's liver enzymes are normal, so one option given her age and her current medical condition will be observation, which we recommend at this time. I want to thank Dr. Cecilio Hendricks for this kind referral. Go Arminda Christianson DR: Guille JOB#: [id number] CC: Cecilio Hendricks M.D.; Fax#: [phone]
--- NOTE | 2018-04-07 17:59 | Cardiology Progress Note ---
Assessment/Plan Assessment/Plan 1. Abdominal pain. 2. Nausea and vomiting. 3. Mitral regurgitation. 4. Hypertension. 5. Coronary disease, status post coronary artery bypass graft. 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 now off tele is on multipl bp meds bp still elevated likely due to pain and na loading in ivf will decrease ivf rate looks mildly uncomfortable ercp note Subjective Cardiovascular: Denies: chest pain, lightheadedness, palpitations Respiratory: Denies: shortness of breath Gastrointestinal/Abdominal: Reports: abdominal pain; Denies: diarrhea, vomiting Genitourinary: Denies: burning Objective Last 24 Hour Vital Signs Date Time Temp Pulse Resp B/P (MAP) Pulse Ox O2 Delivery O2 Flow Rate FiO2 04/07/18 17:07 193/88 04/07/18 17:06 193/88 04/07/18 16:00 98.4 62 20 193/88 (123) 96 98.4 04/07/18 14:19 169/79 04/07/18 13:40 98.5 59 20 169/79 (109) 97 98.5 04/07/18 13:25 96.9 63 18 168/80 (109) 96 96.9 04/07/18 13:09 208.0 68 22 97 04/07/18 13:05 97.4 62 18 165/89 100 Nasal Cannula 3 97.4 04/07/18 12:50 64 19 179/88 100 Nasal Cannula 3 04/07/18 12:40 98.2 04/07/18 12:40 61 21 202/97 100 Nasal Cannula 3 04/07/18 12:30 63 17 198/99 100 Nasal Cannula 3 04/07/18 12:26 208.0 63 22 98 04/07/18 12:25 62 26 204/93 100 Nasal Cannula 3 04/07/18 12:17 98.4 68 22 164/78 98 Nasal Cannula 3 98.4 04/07/18 09:00 Room Air 04/07/18 09:00 70 144/78 04/07/18 09:00 144/78 04/07/18 08:00 100.0 70 20 144/78 (100) 91 100.0 04/07/18 05:42 156/80 04/07/18 04:02 99.1 72 18 156/80 (105) 92 99.1 04/06/18 23:52 160/82 04/06/18 23:47 99.0 68 16 160/82 (108) 92 99.0 04/06/18 20:56 Room Air 04/06/18 20:00 98.7 67 18 152/79 (103) 90 98.7 04/06/18 18:07 161/72 04/06/18 18:07 161/72 General Appearance: no apparent distress, alert Neck: supple Cardiovascular: normal rate, regular rhythm Respiratory/Chest: crackles/rales - left base Abdomen: normal bowel sounds, no mass, tender - min Extremities: no swelling Intake and Output 04/06/18 04/07/18 19:00 07:00 Intake Total 1000 ml 1045 ml Balance 1000 ml 1045 ml Intake Oral 150 ml 120 ml IV Total 850 ml 925 ml # Voids 3 3 # Bowel Movements 2 1 Teo Gross MD Apr 07, 2018 17:59
--- NOTE | 2018-04-07 22:44 | General Progress Note ---
Assessment/Plan Assessment/Plan Assessment - large ventral hernia - abd pain, improved - No evidence of CBD stones on ERCP - Dark emesis, resolved - s/p (R) hemicolectomy - CAD / CABG Recommendations - po as tolerated - IVF - PPI - follow labs and exam Subjective Allergies: Coded Allergies: Dairy (Verified Allergy, Severe, GI UPSET, 11/19/08) Subjective seen earlier today subsequently had ERCP some CBD sludge removed, but no CBD stones seen Objective Last 24 Hour Vital Signs Date Time Temp Pulse Resp B/P (MAP) Pulse Ox O2 Delivery O2 Flow Rate FiO2 04/07/18 20:37 98.8 72 18 191/92 (125) 96 98.8 04/07/18 17:07 193/88 04/07/18 17:06 193/88 04/07/18 16:00 98.4 62 20 193/88 (123) 96 98.4 04/07/18 14:19 169/79 04/07/18 13:40 98.5 59 20 169/79 (109) 97 98.5 04/07/18 13:25 96.9 63 18 168/80 (109) 96 96.9 04/07/18 13:09 208.0 68 22 97 04/07/18 13:05 97.4 62 18 165/89 100 Nasal Cannula 3 97.4 04/07/18 12:50 64 19 179/88 100 Nasal Cannula 3 04/07/18 12:40 98.2 04/07/18 12:40 61 21 202/97 100 Nasal Cannula 3 04/07/18 12:30 63 17 198/99 100 Nasal Cannula 3 04/07/18 12:26 208.0 63 22 98 04/07/18 12:25 62 26 204/93 100 Nasal Cannula 3 04/07/18 12:17 98.4 68 22 164/78 98 Nasal Cannula 3 98.4 04/07/18 09:00 Room Air 04/07/18 09:00 70 144/78 04/07/18 09:00 144/78 04/07/18 08:00 100.0 70 20 144/78 (100) 91 100.0 04/07/18 05:42 156/80 04/07/18 04:02 99.1 72 18 156/80 (105) 92 99.1 04/06/18 23:52 160/82 04/06/18 23:47 99.0 68 16 160/82 (108) 92 99.0 Intake and Output 04/06/18 04/07/18 19:00 07:00 Intake Total 1000 ml 1045 ml Balance 1000 ml 1045 ml Intake Oral 150 ml 120 ml IV Total 850 ml 925 ml # Voids 3 3 # Bowel Movements 2 1 Height (Feet): 5 Height (Inches): 4.00 Weight (Pounds): 103 Objective Thin woman NCAT supple CTA RRR abd soft, large ventral hernia no edema Cecilio Hendricks MD Apr 07, 2018 22:44
[2018-04-08] VITALS: BP 169/93
[2018-04-08] MEDS: Morphine Sulfate 4mg/ml Inj (IV USE ONLY) IVP PRN (00:06)
[2018-04-08] MEDS: Nitroglycerin 2% oint pkt TOPIC SCH ×3 (00:16→12:00)
[2018-04-08] MEDS: D5 1/2NS 1,000 ML IV SCH ×2 (00:27→18:53)
[2018-04-08] MEDS: Acetaminophen 650 MG SUPP RECTAL PRN ×2 (00:37→05:47)
[2018-04-08 04:17] VITALS: BP 137/77
[2018-04-08] MEDS: Levothyroxine 25mcg tab ORAL SCH (05:46)
[2018-04-08 08:00] VITALS: BP 99/59
[2018-04-08] MEDS: Pantoprazole Inj IVP SCH ×2 (08:43→21:53)
[2018-04-08] MEDS: Amiodarone 200mg tab ORAL SCH (08:43)
[2018-04-08] MEDS: Aspirin Baby 81mg ORAL SCH (08:43)
[2018-04-08] MEDS: Lisinopril 10mg tab ORAL SCH (09:00)
[2018-04-08 12:00] VITALS: BP 95/52
--- NOTE | 2018-04-08 14:09 | General Progress Note ---
Assessment/Plan Problem List: (1) Abdominal pain ICD Codes: R10.9 - Unspecified abdominal pain SNOMED: 00380593 Qualifiers: Qualified Codes: R10.84 - Generalized abdominal pain (2) Vomiting ICD Codes: R11.10 - Vomiting, unspecified SNOMED: 929586562 (3) Abdominal hernia ICD Codes: K46.9 - Unspecified abdominal hernia without obstruction or gangrene SNOMED: 46495765 (4) Common bile duct (CBD) obstruction ICD Codes: K83.1 - Obstruction of bile duct SNOMED: 864239381 (5) HTN (hypertension) Assessment & Plan: low BP now ICD Codes: I10 - Essential (primary) hypertension SNOMED: 42063698 Assessment/Plan DC Clonidine and Amlodipine diet per GI PT Discussed with Dr Gross and RN Subjective Allergies: Coded Allergies: Dairy (Verified Allergy, Severe, GI UPSET, 11/19/08) Subjective feels ok Objective Last 24 Hour Vital Signs Date Time Temp Pulse Resp B/P (MAP) Pulse Ox O2 Delivery O2 Flow Rate FiO2 04/08/18 12:00 98.6 18 95/52 (66) 95 98.6 04/08/18 12:00 95/52 04/08/18 09:00 Room Air 04/08/18 09:00 77 99/59 04/08/18 09:00 99/59 04/08/18 08:00 99.7 77 18 99/59 (72) 90 99.7 04/08/18 06:17 100.6 04/08/18 05:47 101.9 04/08/18 05:46 137/77 04/08/18 04:17 100.7 90 19 137/77 (97) 91 100.7 04/08/18 00:37 101.9 04/08/18 00:16 169/93 04/08/18 00:00 101.9 93 20 169/93 (118) 92 101.9 04/07/18 21:00 Room Air 04/07/18 20:37 98.8 72 18 191/92 (125) 96 98.8 04/07/18 17:07 193/88 04/07/18 17:06 193/88 04/07/18 16:00 98.4 62 20 193/88 (123) 96 98.4 04/07/18 14:19 169/79 Intake and Output 04/07/18 04/08/18 19:00 07:00 Intake Total 725 ml 440 ml Output Total 0 ml 300 ml Balance 725 ml 140 ml Intake Oral 340 ml IV Total 725 ml 100 ml Output Urine Total 300 ml Estimated Blood Loss 0 ml # Voids 3 Height (Feet): 5 Height (Inches): 4.00 Weight (Pounds): 103 Cardiovascular: normal rate Respiratory/Chest: lungs clear Abdomen: soft, distended Simeon Mccallum MD Apr 08, 2018 14:09
--- NOTE | 2018-04-08 15:33 | General Surgery Progress Note ---
General Surgery-Progress Note Subjective Additional Comments no acute events. abdomen still distended. tolerating minimal oral intake Objective Last 24 Hour Vital Signs Date Time Temp Pulse Resp B/P (MAP) Pulse Ox O2 Delivery O2 Flow Rate FiO2 04/08/18 12:00 98.6 18 95/52 (66) 95 98.6 04/08/18 12:00 95/52 04/08/18 09:00 Room Air 04/08/18 09:00 77 99/59 04/08/18 09:00 99/59 04/08/18 08:00 99.7 77 18 99/59 (72) 90 99.7 04/08/18 06:17 100.6 04/08/18 05:47 101.9 04/08/18 05:46 137/77 04/08/18 04:17 100.7 90 19 137/77 (97) 91 100.7 04/08/18 00:37 101.9 04/08/18 00:16 169/93 04/08/18 00:00 101.9 93 20 169/93 (118) 92 101.9 04/07/18 21:00 Room Air 04/07/18 20:37 98.8 72 18 191/92 (125) 96 98.8 04/07/18 17:07 193/88 04/07/18 17:06 193/88 04/07/18 16:00 98.4 62 20 193/88 (123) 96 98.4 I&O Intake and Output 04/07/18 04/08/18 19:00 07:00 Intake Total 725 ml 440 ml Output Total 0 ml 300 ml Balance 725 ml 140 ml Intake Oral 340 ml IV Total 725 ml 100 ml Output Urine Total 300 ml Estimated Blood Loss 0 ml # Voids 3 Drains: none Cardiovascular: RSR Respiratory: clear Abdomen: soft, distended, non-tender, present bowel sounds Extremities: no cyanosis Plan Problems: (1) Abdominal pain Assessment & Plan: abdominal pain with associated nausea and emesis. exam with abd distention CT with cholelithiasis possible choledocholithiasis Labs okay MRCP without choledocholithiasis CT with gastric distention Findings: Contrast was seen to exit the stomach as soon as it was injected. Limited images of the stomach are grossly unremarkable. Rapid transit of contrast through the small bowel is noted, and contrast is seen within the colon on the 30 minute film. No small bowel distention. Small bowel mucosal pattern is normal. Impression: Limited exam, demonstrating no evidence of gastric outlet obstruction and no evidence of small bowel obstruction. Transit is in fact rapid, with contrast reaching the colon at 30 minutes EGD with retained gastric contents but no obstruction noted. some gastritis. Repeat MRCP: Choledocholithiasis is suspected on exam that is limited by motion. 2 filling defects in the mid-distal common duct measuring 4 mm. Slight dilation of the pancreatic duct. Correlate for any clinical findings of pancreatitis. Development of moderate hydroureteronephrosis, likely back pressure from the distended urinary bladder. Small volume ascites and small pleural effusions. ERCP - no filling defects. CBD okay. -no acute surgical intervention necessary -okay for diet from surgical standpoint. needs to be sitting up during and after meal. -appreciate GI input. thank you Samuel Rogers Apr 08, 2018 15:33
[2018-04-08 16:00] VITALS: BP 98/60
--- NOTE | 2018-04-08 19:41 | General Progress Note ---
Assessment/Plan Assessment/Plan Assessment - large ventral hernia/diastasis - abd pain, improved - loose BM - No evidence of CBD stones on ERCP - Dark emesis, resolved - s/p (R) hemicolectomy - CAD / CABG Recommendations - po as tolerated - advance - trial of abdominal binder - check C Diff - IVF - PPI - follow labs and exam Subjective Allergies: Coded Allergies: Dairy (Verified Allergy, Severe, GI UPSET, 11/19/08) Subjective some / mild abd pain some loose BM c/o abdominal distention options discussed with surgery d/w son at bedside Objective Last 24 Hour Vital Signs Date Time Temp Pulse Resp B/P (MAP) Pulse Ox O2 Delivery O2 Flow Rate FiO2 04/08/18 16:00 98.5 72 19 98/60 (73) 95 98.5 04/08/18 12:00 98.6 18 95/52 (66) 95 98.6 04/08/18 12:00 95/52 04/08/18 09:00 Room Air 04/08/18 09:00 77 99/59 04/08/18 09:00 99/59 04/08/18 08:00 99.7 77 18 99/59 (72) 90 99.7 04/08/18 06:17 100.6 04/08/18 05:47 101.9 04/08/18 05:46 137/77 04/08/18 04:17 100.7 90 19 137/77 (97) 91 100.7 04/08/18 00:37 101.9 04/08/18 00:16 169/93 04/08/18 00:00 101.9 93 20 169/93 (118) 92 101.9 04/07/18 21:00 Room Air 04/07/18 20:37 98.8 72 18 191/92 (125) 96 98.8 Intake and Output 04/07/18 04/08/18 19:00 07:00 Intake Total 725 ml 440 ml Output Total 0 ml 300 ml Balance 725 ml 140 ml Intake Oral 340 ml IV Total 725 ml 100 ml Output Urine Total 300 ml Estimated Blood Loss 0 ml # Voids 3 Height (Feet): 5 Height (Inches): 4.00 Weight (Pounds): 103 Objective Thin woman NCAT supple CTA RRR abd soft, large ventral hernia no edema Cecilio Hendricks MD Apr 08, 2018 19:40
--- NOTE | 2018-04-08 19:45 | Cardiology Progress Note ---
Assessment/Plan Assessment/Plan 1. Abdominal pain. 2. Nausea and vomiting. 3. Mitral regurgitation. 4. Hypertension. 5. Coronary disease, status post coronary artery bypass graft. 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 bp lower today on multiple med dcd man ymed ivf administed for short time will dc in a few hours Subjective Cardiovascular: Denies: chest pain Respiratory: Denies: shortness of breath Gastrointestinal/Abdominal: Denies: abdominal pain, nausea, vomiting Genitourinary: Denies: burning Objective Last 24 Hour Vital Signs Date Time Temp Pulse Resp B/P (MAP) Pulse Ox O2 Delivery O2 Flow Rate FiO2 04/08/18 16:00 98.5 72 19 98/60 (73) 95 98.5 04/08/18 12:00 98.6 18 95/52 (66) 95 98.6 04/08/18 12:00 95/52 04/08/18 09:00 Room Air 04/08/18 09:00 77 99/59 04/08/18 09:00 99/59 04/08/18 08:00 99.7 77 18 99/59 (72) 90 99.7 04/08/18 06:17 100.6 04/08/18 05:47 101.9 04/08/18 05:46 137/77 04/08/18 04:17 100.7 90 19 137/77 (97) 91 100.7 04/08/18 00:37 101.9 04/08/18 00:16 169/93 04/08/18 00:00 101.9 93 20 169/93 (118) 92 101.9 04/07/18 21:00 Room Air 04/07/18 20:37 98.8 72 18 191/92 (125) 96 98.8 General Appearance: alert Neck: supple Cardiovascular: normal rate, systolic murmur Respiratory/Chest: crackles/rales - left base Abdomen: normal bowel sounds, non tender, soft Extremities: no swelling Intake and Output 04/07/18 04/08/18 19:00 07:00 Intake Total 725 ml 440 ml Output Total 0 ml 300 ml Balance 725 ml 140 ml Intake Oral 340 ml IV Total 725 ml 100 ml Output Urine Total 300 ml Estimated Blood Loss 0 ml # Voids 3 Teo Gross MD Apr 08, 2018 19:45
[2018-04-08 20:00] VITALS: BP 109/63
[2018-04-09] VITALS: BP_SYST 121; BP_SYST 212; BP_DIAS 65
[2018-04-09 04:00] VITALS: BP 119/59
[2018-04-09] MEDS: D5 1/2NS 1,000 ML IV SCH ×2 (04:08→16:32)
[2018-04-09] MEDS: Levothyroxine 25mcg tab ORAL SCH (06:25)
[2018-04-09 08:00] VITALS: BP 138/66
[2018-04-09] MEDS: Amiodarone 200mg tab ORAL SCH (09:07)
[2018-04-09] MEDS: Aspirin Baby 81mg ORAL SCH (09:08)
[2018-04-09] MEDS: Pantoprazole Inj IVP SCH ×2 (09:08→21:10)
[2018-04-09 12:00] VITALS: BP 130/61
--- NOTE | 2018-04-09 13:06 | Cardiology Progress Note ---
Assessment/Plan Assessment/Plan 1. Abdominal pain. 2. Nausea and vomiting. 3. Mitral regurgitation. 4. Hypertension. 5. Coronary disease, status post coronary artery bypass graft. 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 dc ivf bp is better agree with snf stay Subjective Cardiovascular: Denies: chest pain, lightheadedness, palpitations Respiratory: Denies: shortness of breath Gastrointestinal/Abdominal: Denies: abdominal pain Genitourinary: Denies: burning Objective Last 24 Hour Vital Signs Date Time Temp Pulse Resp B/P (MAP) Pulse Ox O2 Delivery O2 Flow Rate FiO2 04/09/18 09:00 Room Air 04/09/18 08:00 99.7 69 18 138/66 (90) 97 99.7 04/09/18 04:00 98.0 74 20 119/59 (79) 93 98.0 04/09/18 00:00 98.0 74 20 121/65 (83) 94 98.0 04/08/18 21:00 Room Air 04/08/18 20:00 99.2 72 21 109/63 (78) 95 99.2 04/08/18 16:00 98.5 72 19 98/60 (73) 95 98.5 General Appearance: alert Cardiovascular: normal rate, regular rhythm Respiratory/Chest: lungs clear Abdomen: normal bowel sounds, non tender, soft Extremities: non-tender Intake and Output 04/08/18 04/09/18 19:00 07:00 Intake Total 700 ml 1450 ml Output Total 160 ml Balance 540 ml 1450 ml Intake Oral 150 ml 150 ml IV Total 550 ml 1300 ml Output Urine Total 160 ml # Voids 2 # Bowel Movements 3 2 Microbiology Date/Time Source Procedure Growth Status 04/08/18 18:00 Stool Clostridium difficile Toxin Assay - Final Complete Teo Gross MD Apr 09, 2018 13:06
--- NOTE | 2018-04-09 14:12 | General Progress Note ---
Assessment/Plan Problem List: (1) Abdominal pain ICD Codes: R10.9 - Unspecified abdominal pain SNOMED: 51687277 Qualifiers: Qualified Codes: R10.84 - Generalized abdominal pain (2) Vomiting ICD Codes: R11.10 - Vomiting, unspecified SNOMED: 648837939 (3) Abdominal hernia ICD Codes: K46.9 - Unspecified abdominal hernia without obstruction or gangrene SNOMED: 72763485 (4) Common bile duct (CBD) obstruction ICD Codes: K83.1 - Obstruction of bile duct SNOMED: 622486547 (5) HTN (hypertension) Assessment & Plan: low BP now ICD Codes: I10 - Essential (primary) hypertension SNOMED: 79679774 Assessment/Plan diet per GI PT Discussed with piano case maker and son DC to SNF tomorrow if accepted Subjective Allergies: Coded Allergies: Dairy (Verified Allergy, Severe, GI UPSET, 11/19/08) Subjective feels ok Objective Last 24 Hour Vital Signs Date Time Temp Pulse Resp B/P (MAP) Pulse Ox O2 Delivery O2 Flow Rate FiO2 04/09/18 09:00 Room Air 04/09/18 08:00 99.7 69 18 138/66 (90) 97 99.7 04/09/18 04:00 98.0 74 20 119/59 (79) 93 98.0 04/09/18 00:00 98.0 74 20 121/65 (83) 94 98.0 04/08/18 21:00 Room Air 04/08/18 20:00 99.2 72 21 109/63 (78) 95 99.2 04/08/18 16:00 98.5 72 19 98/60 (73) 95 98.5 Intake and Output 04/08/18 04/09/18 19:00 07:00 Intake Total 700 ml 1450 ml Output Total 160 ml Balance 540 ml 1450 ml Intake Oral 150 ml 150 ml IV Total 550 ml 1300 ml Output Urine Total 160 ml # Voids 2 # Bowel Movements 3 2 Height (Feet): 5 Height (Inches): 4.00 Weight (Pounds): 102 Respiratory/Chest: lungs clear Abdomen: soft Simeon Mccallum MD Apr 09, 2018 14:12
[2018-04-09 16:00] VITALS: BP 134/66
--- NOTE | 2018-04-09 17:16 | General Surgery Progress Note ---
General Surgery-Progress Note Subjective Symptoms: improved, pain absent Additional Comments no acute events. comfort gained with abdominal binder Objective Last 24 Hour Vital Signs Date Time Temp Pulse Resp B/P (MAP) Pulse Ox O2 Delivery O2 Flow Rate FiO2 04/09/18 16:00 98.8 66 19 134/66 (88) 95 98.8 04/09/18 12:00 99.0 67 19 130/61 (84) 94 99.0 04/09/18 09:00 Room Air 04/09/18 08:00 99.7 69 18 138/66 (90) 97 99.7 04/09/18 04:00 98.0 74 20 119/59 (79) 93 98.0 04/09/18 00:00 98.0 74 20 121/65 (83) 94 98.0 04/08/18 21:00 Room Air 04/08/18 20:00 99.2 72 21 109/63 (78) 95 99.2 I&O Intake and Output 04/08/18 04/09/18 19:00 07:00 Intake Total 700 ml 1450 ml Output Total 160 ml Balance 540 ml 1450 ml Intake Oral 150 ml 150 ml IV Total 550 ml 1300 ml Output Urine Total 160 ml # Voids 2 # Bowel Movements 3 2 Drains: none Cardiovascular: RSR Respiratory: clear Abdomen: soft, distended, non-tender, present bowel sounds Extremities: no cyanosis Plan Problems: (1) Abdominal pain Assessment & Plan: abdominal pain with associated nausea and emesis. exam with abd distention CT with cholelithiasis possible choledocholithiasis Labs okay MRCP without choledocholithiasis CT with gastric distention Findings: Contrast was seen to exit the stomach as soon as it was injected. Limited images of the stomach are grossly unremarkable. Rapid transit of contrast through the small bowel is noted, and contrast is seen within the colon on the 30 minute film. No small bowel distention. Small bowel mucosal pattern is normal. Impression: Limited exam, demonstrating no evidence of gastric outlet obstruction and no evidence of small bowel obstruction. Transit is in fact rapid, with contrast reaching the colon at 30 minutes EGD with retained gastric contents but no obstruction noted. some gastritis. Repeat MRCP: Choledocholithiasis is suspected on exam that is limited by motion. 2 filling defects in the mid-distal common duct measuring 4 mm. Slight dilation of the pancreatic duct. Correlate for any clinical findings of pancreatitis. Development of moderate hydroureteronephrosis, likely back pressure from the distended urinary bladder. Small volume ascites and small pleural effusions. ERCP - no filling defects. CBD okay. -no acute surgical intervention necessary -okay for diet from surgical standpoint. needs to be sitting up during and after meal. -appreciate GI input. -abdominal binder as needed for comfort. -d/c planning thank you Samuel Rogers Apr 09, 2018 17:16
[2018-04-09] MEDS ORDERED: D5 1/2NS 1000ml IV ONE (17:20)
[2018-04-09] MEDS: Lisinopril 10mg tab ORAL SCH (17:27)
[2018-04-09 20:00] VITALS: BP 148/69
--- NOTE | 2018-04-09 22:21 | General Progress Note ---
Assessment/Plan Assessment/Plan Assessment - large ventral hernia/diastasis - abd pain, improved - loose BM - No evidence of CBD stones on ERCP - Dark emesis, resolved - s/p (R) hemicolectomy - CAD / CABG Recommendations - po as tolerated - advance - trial of abdominal binder - check C Diff - IVF - PPI - follow labs and exam - d/c planning Subjective Allergies: Coded Allergies: Dairy (Verified Allergy, Severe, GI UPSET, 11/19/08) Subjective c/o abdominal distention has binder on abdomen d/w son at bedside Objective Last 24 Hour Vital Signs Date Time Temp Pulse Resp B/P (MAP) Pulse Ox O2 Delivery O2 Flow Rate FiO2 04/09/18 20:39 Room Air 04/09/18 17:27 121/68 04/09/18 16:00 98.8 66 19 134/66 (88) 95 98.8 04/09/18 12:00 99.0 67 19 130/61 (84) 94 99.0 04/09/18 09:00 Room Air 04/09/18 08:00 99.7 69 18 138/66 (90) 97 99.7 04/09/18 04:00 98.0 74 20 119/59 (79) 93 98.0 04/09/18 00:00 98.0 74 20 121/65 (83) 94 98.0 Intake and Output 04/08/18 04/09/18 19:00 07:00 Intake Total 700 ml 1450 ml Output Total 160 ml Balance 540 ml 1450 ml Intake Oral 150 ml 150 ml IV Total 550 ml 1300 ml Output Urine Total 160 ml # Voids 2 # Bowel Movements 3 2 Height (Feet): 5 Height (Inches): 4.00 Weight (Pounds): 102 Objective Thin woman NCAT supple CTA RRR abd soft, large ventral hernia no edema Cecilio Hendricks MD Apr 09, 2018 22:21
[2018-04-10] MEDS: D5 1/2NS 1,000 ML IV SCH ×3 (00:01→17:21)
[2018-04-10] MEDS: Levothyroxine 25mcg tab ORAL SCH (06:30)
[2018-04-10] MEDS: Morphine Sulfate 4mg/ml Inj (IV USE ONLY) IVP PRN (06:38)
[2018-04-10 08:00] VITALS: BP 110/66
[2018-04-10] MEDS: Pantoprazole Inj IVP SCH ×2 (08:39→20:26)
[2018-04-10] MEDS: Amiodarone 200mg tab ORAL SCH (08:39)
[2018-04-10] MEDS: Aspirin Baby 81mg ORAL SCH (08:39)
[2018-04-10 12:00] VITALS: BP 109/54
--- NOTE | 2018-04-10 12:10 | General Progress Note ---
Assessment/Plan Problem List: (1) Abdominal pain ICD Codes: R10.9 - Unspecified abdominal pain SNOMED: 89512513 Qualifiers: Qualified Codes: R10.84 - Generalized abdominal pain (2) Vomiting ICD Codes: R11.10 - Vomiting, unspecified SNOMED: 497161167 (3) Abdominal hernia ICD Codes: K46.9 - Unspecified abdominal hernia without obstruction or gangrene SNOMED: 90827558 (4) Common bile duct (CBD) obstruction ICD Codes: K83.1 - Obstruction of bile duct SNOMED: 039139893 (5) HTN (hypertension) Assessment & Plan: low BP now ICD Codes: I10 - Essential (primary) hypertension SNOMED: 72683434 Assessment/Plan Discussed with Dr Eladio EMERY to SNF today if accepted Subjective Allergies: Coded Allergies: Dairy (Verified Allergy, Severe, GI UPSET, 11/19/08) Subjective feels ok Objective Last 24 Hour Vital Signs Date Time Temp Pulse Resp B/P (MAP) Pulse Ox O2 Delivery O2 Flow Rate FiO2 04/10/18 09:00 Room Air 04/10/18 08:00 99.4 65 18 110/66 (81) 93 99.4 04/09/18 20:39 Room Air 04/09/18 20:00 98.5 65 18 148/69 (95) 95 98.5 04/09/18 17:27 121/68 04/09/18 16:00 98.8 66 19 134/66 (88) 95 98.8 Intake and Output 04/09/18 04/10/18 19:00 07:00 Intake Total 1150 ml 1020 ml Balance 1150 ml 1020 ml Intake Oral 200 ml 120 ml IV Total 950 ml 900 ml # Voids 4 1 # Bowel Movements 1 1 Height (Feet): 5 Height (Inches): 4.00 Weight (Pounds): 102 Cardiovascular: normal rate Respiratory/Chest: lungs clear Abdomen: distended Edema: no edema noted Simeon Bar MD Apr 10, 2018 12:10
--- NOTE | 2018-04-10 15:01 | General Surgery Progress Note ---
General Surgery-Progress Note Subjective Symptoms: improved, pain absent, tolerating diet, passing flatus, BM Objective Last 24 Hour Vital Signs Date Time Temp Pulse Resp B/P (MAP) Pulse Ox O2 Delivery O2 Flow Rate FiO2 04/10/18 12:00 98.1 66 18 109/54 (72) 95 98.1 04/10/18 09:00 Room Air 04/10/18 08:00 99.4 65 18 110/66 (81) 93 99.4 04/09/18 20:39 Room Air 04/09/18 20:00 98.5 65 18 148/69 (95) 95 98.5 04/09/18 17:27 121/68 04/09/18 16:00 98.8 66 19 134/66 (88) 95 98.8 I&O Intake and Output 04/09/18 04/10/18 19:00 07:00 Intake Total 1150 ml 1020 ml Balance 1150 ml 1020 ml Intake Oral 200 ml 120 ml IV Total 950 ml 900 ml # Voids 4 1 # Bowel Movements 1 1 Dressing: other Wound: other Cardiovascular: RSR Respiratory: clear Abdomen: soft, distended, non-tender, present bowel sounds Extremities: no cyanosis Plan Problems: (1) Abdominal pain Assessment & Plan: abdominal pain with associated nausea and emesis. exam with abd distention CT with cholelithiasis possible choledocholithiasis Labs okay MRCP without choledocholithiasis CT with gastric distention Findings: Contrast was seen to exit the stomach as soon as it was injected. Limited images of the stomach are grossly unremarkable. Rapid transit of contrast through the small bowel is noted, and contrast is seen within the colon on the 30 minute film. No small bowel distention. Small bowel mucosal pattern is normal. Impression: Limited exam, demonstrating no evidence of gastric outlet obstruction and no evidence of small bowel obstruction. Transit is in fact rapid, with contrast reaching the colon at 30 minutes EGD with retained gastric contents but no obstruction noted. some gastritis. Repeat MRCP: Choledocholithiasis is suspected on exam that is limited by motion. 2 filling defects in the mid-distal common duct measuring 4 mm. Slight dilation of the pancreatic duct. Correlate for any clinical findings of pancreatitis. Development of moderate hydroureteronephrosis, likely back pressure from the distended urinary bladder. Small volume ascites and small pleural effusions. ERCP - no filling defects. CBD okay. -no acute surgical intervention necessary -okay for diet from surgical standpoint. needs to be sitting up during and after meal. -appreciate GI input. -abdominal binder as needed for comfort. -d/c planning thank you Samuel Rogers Apr 10, 2018 15:01
[2018-04-10 16:00] VITALS: BP 135/72
[2018-04-10] MEDS ORDERED: D5 1/2NS 1000ml IV ONE (16:43)
[2018-04-10] MEDS: Lisinopril 10mg tab ORAL SCH (17:21)
[2018-04-10 20:00] VITALS: BP 127/68
--- NOTE | 2018-04-10 21:07 | General Progress Note ---
Assessment/Plan Assessment/Plan Assessment - large ventral hernia/diastasis - abd pain, improved - No evidence of CBD stones on ERCP - Dark emesis, resolved - s/p (R) hemicolectomy - CAD / CABG Recommendations - po as tolerated - advance - trial of abdominal binder - may need to custom order as outpatient - check C Diff - IVF - PPI - follow labs and exam - d/c planning Subjective Allergies: Coded Allergies: Dairy (Verified Allergy, Severe, GI UPSET, 11/19/08) Subjective no vomiting has binder on abdomen binder tends to move around d/w son at bedside Objective Last 24 Hour Vital Signs Date Time Temp Pulse Resp B/P (MAP) Pulse Ox O2 Delivery O2 Flow Rate FiO2 04/10/18 17:21 134/67 04/10/18 16:00 98.6 66 18 135/72 (93) 94 98.6 04/10/18 12:00 98.1 66 18 109/54 (72) 95 98.1 04/10/18 09:00 Room Air 04/10/18 08:00 99.4 65 18 110/66 (81) 93 99.4 Intake and Output 04/09/18 04/10/18 19:00 07:00 Intake Total 1150 ml 1020 ml Balance 1150 ml 1020 ml Intake Oral 200 ml 120 ml IV Total 950 ml 900 ml # Voids 4 1 # Bowel Movements 1 1 Height (Feet): 5 Height (Inches): 4.00 Weight (Pounds): 102 Objective Thin woman NCAT supple CTA RRR abd soft, large ventral hernia, (+) binder no edema Cecilio Hendricks MD Apr 10, 2018 21:07
[2018-04-11] MEDS: Levothyroxine 25mcg tab ORAL SCH (06:01)
[2018-04-11] MEDS: D5 1/2NS 1,000 ML IV SCH (06:01)
[2018-04-11 08:00] VITALS: BP 113/63
[2018-04-11] MEDS: Pantoprazole Inj IVP SCH (09:22)
[2018-04-11] MEDS: Amiodarone 200mg tab ORAL SCH (09:22)
[2018-04-11] MEDS: Aspirin Baby 81mg ORAL SCH (09:22)
[2018-04-11 12:00] VITALS: BP 143/71
[2018-04-11] MEDS ORDERED: D5 1/2NS 1000ml IV ONE (13:54)
--- NOTE | 2018-04-11 16:05 | Cardiology Report ---
APPROVED REPORT EKG Measurement Heart [id number] Sinus rhythm with 1st degree AV block Voltage for LVH Nonspecific intraventricular conduction delay Borderline ECG
--- NOTE | 2018-04-11 21:28 | General Progress Note ---
Assessment/Plan Assessment/Plan Assessment - large ventral hernia/diastasis - abd pain, improved - No evidence of CBD stones on ERCP - Dark emesis, resolved - s/p (R) hemicolectomy - CAD / CABG Recommendations - po as tolerated - advance - trial of abdominal binder - may need to custom order as outpatient - check C Diff - IVF - PPI - follow labs and exam - d/c planning Subjective Allergies: Coded Allergies: Dairy (Verified Allergy, Severe, GI UPSET, 11/19/08) Subjective no vomiting has binder on abdomen binder tends to move around d/w son at bedside Objective Last 24 Hour Vital Signs Date Time Temp Pulse Resp B/P (MAP) Pulse Ox O2 Delivery O2 Flow Rate FiO2 04/11/18 12:00 99.2 18 143/71 (95) 96 99.2 04/11/18 09:00 Room Air 04/11/18 08:00 99.8 18 113/63 (80) 92 99.8 Intake and Output 04/10/18 04/11/18 19:00 07:00 Intake Total 1340 ml 800 ml Output Total 700 ml Balance 1340 ml 100 ml Intake Oral 390 ml IV Total 950 ml 800 ml Output Urine Total 700 ml # Voids 1 Height (Feet): 5 Height (Inches): 4.00 Weight (Pounds): 102 Objective Thin woman NCAT supple CTA RRR abd soft, large ventral hernia, (+) binder no edema Cecilio Hendricks MD Apr 11, 2018 21:28
--- NOTE | 2018-04-15 09:35 | Discharge Summary ---
Discharge Summary Discharge Summary _ DATE OF ADMISSION: 04/03/2018 DATE OF DISCHARGE: 04/11/2018 REASON FOR ADMISSION: 87 years old female with past medical history of hypertension, coronary artery disease with a history of CABG, hypothyroidism, GI bleeding, abdominal hernia, presented with nausea, vomiting ,abdominal pain started the night prior to admission. Patient was sent to emergency room for evaluation. Vital signs were stable laboratory workup revealed no leukocytosis, hemoglobin 10.7, hematocrit 33.6. Stable electrolytes BUN 34 creatinine 0.8 Urinalysis revealed no evidence of UTI . Troponin negative. Glucose 139. CT of the abdomen and pelvis revealed possible choledocholithiasis with prominent biliary ducts and punctate calcification in the region of the distal common bile duct. Cholelithiasis. Compression fracture deformity within the lower thoracic vertebra , likely old. Atherosclerotic vascular disease. Patient admitted with diagnoses of abdominal pain, nausea ,vomiting ,biliary obstruction ,abdominal wall hernia. CONSULTANTS: wind turbine installer Dr. Gross GI specialist Dr. Hendricks, Dr. Christianson ( for ERCP) surgery Dr. Rogers [facility] COURSE: Patient admitted. Patient started on OV fluids and initially was nothing by mouth. GI , cardio and surgery consults requested. Pain management was addressed. Antiemetics provided as needed. Stool for C. difficile was negative. Patient subsequently undergone MRCP of the abdomen ,which revealed cholelithiasis, but no obvious choledocholithiasis or biliary duct obstruction. Abdominal ultrasound revealed cholelithiasis, choledocholithiasis, no biliary ducts dilatation . NG tube was placed for decompression of abdominal distention. Abdominal x-ray confirmed placement. Upper GI series with small bowel follow through revealed no evidence of gastric outlet obstruction and no evidence of small bowel obstruction. Transient in fact was rapid with contrast reaching the colon in 30 minutes. Patient continued to have abdominal pain with nausea and vomiting. Repeated MRCP of the abdomen showed findings suspicious for choledocholithiasis with two filling defects in the mid -distal common duct, measuring 4 mm. Liver enzymes and lipase remained stable. Bilirubin started to rise on 04/06 . Patient subsequently undergone ERCP with sphincterotomy on April 07. Procedure was ballooned assisted in sweeping the duct and removing some sludge. During the procedure, no obvious stone was seen, and no obvious common bile duct dilatation. LFT were stable. Given her age and current medical condition , GI specialist recommended conservative management with close observation . Surgeon closely followed. Per surgery no acute surgical intervention was necessary at this time. Patient slowly started on diet . Antiemetics provided as needed . GI prophylaxis provided. Patient required to sit up during and after meals. Abdominal binder provided as needed for comfort. Pain management was addressed. Supportive care provided. Wheel Truer closely followed. EKG showed sinus rhythm with some voltage criteria for left ventricular hypertrophy and nonspecific ST segment changes. No changes compared with EKG from the office. The patient had no signs and symptoms of congestive heart failure at that time, and no evidence of acute coronary syndrome. Wheel Truer cleared patient for procedure /ERCP with acceptable risks to have it done. Blood pressure was managed with current antihypertensive medications. Hemoglobin and hematocrit were closely monitored , remained on the baseline . Renal parameters and electrolytes were closely monitored. Electrolytes were corrected as needed. Nephrotoxins were avoided. Prior to discharge BU from 34 down to 24 and creatinine remained stable. Surgeon and GI specialist cleared fro discharge. No further vomiting, tolerated diet. 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 Left ventral hernia/diastasis History of right hemicolectomy DISCHARGE MEDICATIONS: See Medication Reconciliation list. DISCHARGE INSTRUCTIONS: Patient was discharged to the [facility] facility. Follow up with medical doctor at the facility. I have been assigned to dictate discharge summary for this account. I was not involved in the patient's management. Charisse Naqvi NP Apr 15, 2018 09:35
== END 2018-04-11 13:55 ==
LOC: EMR 03:00 → 2E 04:15 → EDBEDREQ 04:37 → 3E 04-04 16:24
PROC: 0DB78ZX Excision of Stomach, Pylorus, Via Natural or Artificial Opening Endoscopic, Diagnostic (ICD-10-PCS; 2018-04-04)
PROC: 0F798ZZ Dilation of Common Bile Duct, Via Natural or Artificial Opening Endoscopic (ICD-10-PCS; principal; 2018-04-07 11:46)
DX: K80.50 Calculus of bile duct without cholangitis or cholecystitis without obstruction (principal); J90 Pleural effusion, not elsewhere classified; R18.8 Other ascites; I48.91 Unspecified atrial fibrillation; N13.30 Unspecified hydronephrosis; Z95.1 Presence of aortocoronary bypass graft; E03.9 Hypothyroidism, unspecified; I10 Essential (primary) hypertension; R11.10 Vomiting, unspecified; I16.0 Hypertensive urgency; K43.9 Ventral hernia without obstruction or gangrene; I25.10 Atherosclerotic heart disease of native coronary artery without angina pectoris; K29.70 Gastritis, unspecified, without bleeding; K80.20 Calculus of gallbladder without cholecystitis without obstruction
CPT/HCPCS: 36415; 74018; 74177; 74181; 74249; 74328; 76000; 76700; 80053; 81003; 82248; 82550; 82553; 83690; 84484; 85007; 85025; 87324; 93005; 94003; 94150; 96361; 96365; 96375; 96376; 99285; J2250; J2405

== ENCOUNTER 2018-04-11 22:48 | Inpatient (IN) | payer MEDICARE, OTHER ==
[~2018-04-11] VITALS: Ht 157.5 cm; Wt 54.6 kg
[~2018-04-11 22:48] MED LIST changes: +LISINOPRIL10 MG ORAL
[2018-04-11 22:50] VITALS: BP 114/72
--- NOTE | 2018-04-11 22:52 | Emergency Room Report ---
History of Present Illness General Chief Complaint: Abdominal Pain Source: Patient, Medical Record, EMS Present Illness HPI Is an 87-year-old female from shelter. She has a history of a large ventral hernia. She was just discharged here from the hospital for abdominal pain with vomiting. Workup was unremarkable. She has no obstruction but there was a lot of gastric content in the stomach per Dr. Christianson. She presents with chief complaint of abdominal pain with vomiting. She was discharged today and 4 hours later started having vomiting again. Vomiting is very bilious. no blood. Multiple episodes. Pain is crampy in nature. No fever or chills. She was sent back in for CT with oral contrast her GI doctor. No trauma. No diarrhea. Pain is crampy and sharp in nature. 7 out of 10. No radiation. Allergies: Coded Allergies: Dairy (Verified Allergy, Severe, GI UPSET, 11/19/08) Patient History Past Medical History: see triage record, old chart reviewed Past Surgical History: other Pertinent Family History: none Social History: Denies: smoking Now: No Immunizations: other Reviewed Nursing Documentation: PMH: Agreed; PSxH: Agreed Nursing Documentation-PMH Past Medical History: No History, Except For Hx Hypertension: Yes Hx Pacemaker: No Hx Asthma: No Hx COPD: No Hx Diabetes: No Hx Cancer: No Hx Dialysis: No Hx Neurological Problems: No Hx Cerebrovascular Accident: No Hx Seizures: No Review of Systems Eye: Denies: eye pain, blurred vision ENT: Denies: ear pain, nose congestion, throat swelling Respiratory: Denies: cough, shortness of breath Cardiovascular: Denies: chest pain, palpitations Gastrointestinal: Reports: abdominal pain, nausea, vomiting; Denies: diarrhea Musculoskeletal: Denies: back pain, joint pain Skin: Denies: rash Neurological: Denies: headache, numbness Endocrine: Denies: increased thirst, increased urine Hematologic/Lymphatic: Denies: easy bruising All Other Systems: negative except mentioned in HPI Physical Exam Vital Signs Date Time Temp Pulse Resp B/P (MAP) Pulse Ox O2 Delivery O2 Flow Rate FiO2 04/11/18 22:40 97.9 79 16 108/78 92 Room Air 97.9 vitals normal Sp02 EP Interpretation: reviewed, normal General Appearance: no apparent distress, alert, Chronically Ill Head: normocephalic, atraumatic Eyes: bilateral eye PERRL, bilateral eye EOMI ENT: hearing grossly normal, normal pharynx Neck: full range of motion, supple, no meningismus Respiratory: chest non-tender, lungs clear, normal breath sounds Cardiovascular #1: regular rate, rhythm, no murmur Gastrointestinal: normal bowel sounds, no mass, no organomegaly, no bruit, non- distended, tenderness - Diffuse, other - Large ventral hernia Musculoskeletal: back normal, normal range of motion Neurologic: alert, oriented x3 Psychiatric: mood/affect normal Skin: warm/dry Medical Decision Making Diagnostic Impression: Primary Impression: Intractable vomiting with nausea Qualified Codes: R11.2 - Nausea with vomiting, unspecified Additional Impressions: Ventral hernia with bowel obstruction Dehydration SOPHIE (acute kidney injury) ER Course Patient presents with intractable vomiting. She does have a large ventral hernia. This may cause some obstruction. She did get better after NG tube. No evidence of perforation. Will admit for further workup. I discussed the case initially with Dr. Christianson, GI. Then with Dr. Mccallum who will admit. Lab Results Impression labs with SOPHIE. Rhythm Strip Diag. Results Rhythm Strip Time: 03:14 EP Interpretation: yes Rate: 80 Rhythm: NSR, no PVC's, no ectopy CT/MRI/US Diagnostic Results CT/MRI/US Diagnostic Results : Imaging Test Ordered: CT abdomen and pelvis Impression Read by radiologist. Prominent small bowel loops seen along the left side of the abdomen. Although a well defined transition point is not clearly identified , and obstructive process should be considered. Last Vital Signs Date Time Temp Pulse Resp B/P (MAP) Pulse Ox O2 Delivery O2 Flow Rate FiO2 04/11/18 22:40 97.9 79 16 108/78 92 Room Air 97.9 Status: improved Disposition: ADMITTED INPATIENT Condition: Serious Kartik Hewitt MD Apr 11, 2018 22:52
[2018-04-11 23:27] LABS: HEMATOCRIT 36.3 % (37.0-47.0); HEMOGLOBIN 12.1 G/DL (12.0-16.0); MEAN CORPUSCULAR VOLUME 92 FL (80-99); PLATELET COUNT 233 K/UL (150-450); RED BLOOD COUNT 3.95 M/UL (4.20-5.40); RED CELL DISTRIBUTION WIDTH 13.8 % (11.6-14.8); WHITE BLOOD COUNT 13.8 K/UL (4.8-10.8)
[2018-04-11 23:35] LABS: ANION GAP 10 mmol/L (5-15); BLOOD UREA NITROGEN 51 mg/dL (7-18); CALCIUM 9.1 MG/DL (8.5-10.1); CARBON DIOXIDE 24 MMOL/L (21-32); CHLORIDE 96 MMOL/L (98-107); CREATININE 1.7 MG/DL (0.55-1.30); POTASSIUM 3.8 MMOL/L (3.5-5.1); SODIUM 130 MMOL/L (136-145)
[2018-04-11 23:39] LABS: ALANINE AMINOTRANSFERASE 17 U/L (12-78); ALBUMIN 2.5 G/DL (3.4-5.0); ALBUMIN/GLOBULIN RATIO 0.6 (1.0-2.7); ALKALINE PHOSPHATASE 139 U/L (46-116); ASPARTATE AMINO TRANSFERASE 22 U/L (15-37); BILIRUBIN,TOTAL 0.9 MG/DL (0.2-1.0)
[2018-04-12] MEDS ORDERED: Morphine Sulfate 2mg/ml Inj IVP PRN
[2018-04-12] MEDS ORDERED: Milk of Magnesia 30ml Ud ORAL PRN
[2018-04-12 00:38] VITALS: BP 116/57
[2018-04-12] MEDS ORDERED: D5 1/2NS 1,000 ML IV SCH (00:47)
--- NOTE | 2018-04-12 02:54 | Diagnostic Imaging Report ---
EXAM: CT Abdomen and Pelvis With Intravenous Contrast CLINICAL HISTORY: ABD PAIN TECHNIQUE: Axial computed tomography images of the abdomen and pelvis with intravenous contrast. CTDI is 0.15, 16.58 mGy and DLP is 810 mGy-cm. One or more of the following dose reduction techniques were used: automated exposure control, adjustment of the mA and/or kV according to patient size, use of iterative reconstruction technique. Coronal and sagittal reformatted images were created and reviewed. COMPARISON: 04/03/18 FINDINGS: Limitations: Evaluation is limited secondary to artifact from the patient's arms being down by her side, secondary to no IV contrast, and secondary to minimal intraperitoneal fat. Lung bases: See below. Pleural space: Bilateral pleural effusions with adjacent atelectasis versus infiltrate. Heart: Cardiomegaly with coronary artery calcifications. ABDOMEN: Liver: The liver is grossly unremarkable for a noncontrast CT. Gallbladder and bile ducts: Cholelithiasis without definite CT evidence for pericholecystic inflammatory changes. The biliary ducts are not well visualized. Pancreas: The pancreas is not well-visualized. Spleen: The spleen is grossly unremarkable for a noncontrast CT. Adrenals: The adrenal glands are not well-visualized. There is question of some thickening and nodularity of the adrenal glands. Kidneys and ureters: Bilateral hydronephrosis without evidence for ureteral stone. This may be related to the distended bladder. 10 mm lesion with increased density in the left kidney which may be related to a hemorrhagic cyst. This has a similar appearance compared to the prior exam. Stomach and bowel: Prominent small bowel loops are seen along the left side of the abdomen. The prominent small bowel loops extend anterior to the stomach. Although a well-defined transition point is not clearly identified, an obstructive process should be considered. An internal hernia cannot be excluded. PELVIS: Appendix: The appendix is not clearly identified. Bladder: Distended bladder. Reproductive: The uterus is grossly unremarkable. ABDOMEN and PELVIS: Intraperitoneal space: Small amount of fluid suspected adjacent to the spleen. No definite evidence for free intraperitoneal gas. Bones/joints: Right hip prosthesis. Old fracture deformity of the left femoral neck which has a similar appearance compared to the prior exam. Old fracture deformities suspected of the pelvis. Osteopenia. Extensive degenerative changes of the left hip. Degenerative changes of the thoracolumbar spine. Old fracture deformities of T11 and T12 which have a similar appearance compared to the prior exam. Thoracolumbar levoscoliosis. No dislocation. Soft tissues: Area of rectus diastases/ventral abdominal hernia in the lower abdomen and pelvis which contains loops of bowel. This has a similar appearance compared to the prior exam. Diffuse nonspecific subcutaneous edema. Vasculature: Ascending aortic aneurysm measuring 4.2 cm in maximum transverse dimensions. Vascular atherosclerotic calcifications. Lymph nodes: Unremarkable. No enlarged lymph nodes. Tubes, lines and devices: Nasogastric tube with tip in the region of the body/fundus of the stomach. IMPRESSION: 1. Prominent small bowel loops are seen along the left side of the abdomen. The prominent small bowel loops extend anterior to the stomach. Although a well-defined transition point is not clearly identified, an obstructive process should be considered. An internal hernia cannot be excluded. 2. Bilateral pleural effusions with adjacent atelectasis versus infiltrate. 3. Cardiomegaly with coronary artery calcifications. 4. Ascending aortic aneurysm measuring 4.2 cm in maximum transverse dimensions. 5. Distended bladder. 6. Bilateral hydronephrosis without evidence for ureteral stone. This may be related to the distended bladder. 7. Cholelithiasis without definite CT evidence for pericholecystic inflammatory changes. Critical Value Communications 04/12/18 03:03 Verify Receipt Verified receipt with Kartik Hewitt MD in the ER on 04/12 03:02 (-07:00)
[2018-04-12 04:00] VITALS: BP 136/76
[2018-04-12 08:00] VITALS: BP 116/67
[2018-04-12] MEDS: Amiodarone 200mg tab ORAL SCH ×2 (08:18→09:30)
[2018-04-12] MEDS: Levothyroxine 25mcg tab ORAL SCH ×2 (08:18→09:30)
[2018-04-12] MEDS: Pantoprazole Inj IV SCH (08:18)
[2018-04-12] MEDS ORDERED: Lisinopril 10mg tab ORAL SCH (09:00)
[2018-04-12 09:43] LABS: HEMATOCRIT 30.8 % (37.0-47.0); HEMOGLOBIN 10.1 G/DL (12.0-16.0); MEAN CORPUSCULAR VOLUME 93 FL (80-99); PLATELET COUNT 212 K/UL (150-450); RED BLOOD COUNT 3.32 M/UL (4.20-5.40); WHITE BLOOD COUNT 14.5 K/UL (4.8-10.8)
[2018-04-12 09:52] LABS: ALANINE AMINOTRANSFERASE 14 U/L (12-78); ALBUMIN 2.1 G/DL (3.4-5.0); ALBUMIN/GLOBULIN RATIO 0.6 (1.0-2.7); ALKALINE PHOSPHATASE 110 U/L (46-116); ANION GAP 8 mmol/L (5-15); ASPARTATE AMINO TRANSFERASE 15 U/L (15-37); BILIRUBIN,TOTAL 0.8 MG/DL (0.2-1.0); BLOOD UREA NITROGEN 52 mg/dL (7-18); CALCIUM 8.4 MG/DL (8.5-10.1); CARBON DIOXIDE 25 MMOL/L (21-32); CHLORIDE 98 MMOL/L (98-107); CHOLESTEROL 117 MG/DL (< 200); CREATININE 1.5 MG/DL (0.55-1.30); HDL CHOLESTEROL 18 MG/DL (40-60); POTASSIUM 3.2 MMOL/L (3.5-5.1); SODIUM 131 MMOL/L (136-145); TRIGLYCERIDES 88 MG/DL (30-150)
[2018-04-12 12:00] VITALS: BP 125/69
[2018-04-12] MEDS ORDERED: Acetaminophen 650 MG SUPP RECTAL PRN (12:00)
[2018-04-12] MEDS: NS w/KCl 20mEq 1,000 ML IV SCH (13:51)
--- NOTE | 2018-04-12 14:38 | General Progress Note ---
Assessment/Plan Assessment/Plan Assessment - recurrent N/V - suspect intermittent PSBO or gastric outlet obstruction - leukocytosis - Azotmia Recommendations - Continue NGT - repeat UGI/SBFT - surgical f/u Subjective Allergies: Coded Allergies: Dairy (Verified Allergy, Severe, GI UPSET, 11/19/08) Subjective readmitted after a few hours yesterday had recurrent N/V NGT placed -- > [address] noted d/w PMD and Surgery Objective Last 24 Hour Vital Signs Date Time Temp Pulse Resp B/P (MAP) Pulse Ox O2 Delivery O2 Flow Rate FiO2 04/12/18 12:00 98.5 77 19 125/69 (87) 91 98.5 04/12/18 09:00 Room Air 04/12/18 08:17 116/67 04/12/18 08:00 98.3 74 20 116/67 (83) 91 98.3 04/12/18 04:35 Room Air 04/12/18 04:00 98.1 80 20 136/76 (96) 94 98.1 04/12/18 03:30 97.8 75 19 118/57 94 Room Air 04/12/18 00:38 74 14 116/57 95 Room Air 04/11/18 22:50 97.9 75 16 114/72 97 Room Air 97.9 04/11/18 22:40 97.9 79 16 108/78 92 Room Air 97.9 Intake and Output 04/11/18 04/12/18 19:00 07:00 Intake Total 200 ml Output Total 350 ml Balance -150 ml Intake Oral 50 ml IV Total 150 ml Output Emesis 350 ml Laboratory Tests 04/11/18 23:00: White Blood Count 13.8H, Red Blood Count 3.95L, Hemoglobin 12.1, Hematocrit 36.3L, Mean Corpuscular Volume 92, Mean Corpuscular Hemoglobin 30.7, Mean Corpuscular Hemoglobin Concent 33.4, Red Cell Distribution Width 13.8, Platelet Count 233, Mean Platelet Volume 7.3, Neutrophils (%) (Auto) , Lymphocytes (%) ( Auto) , Monocytes (%) (Auto) , Eosinophils (%) (Auto) , Basophils (%) (Auto) , Differential Total Cells Counted 100, Neutrophils % (Manual) 93H, Lymphocytes % (Manual) 2L, Monocytes % (Manual) 5, Eosinophils % (Manual) 0, Basophils % ( Manual) 0, Band Neutrophils 0, Platelet Estimate Adequate, Platelet Morphology Normal, Acanthocytes 1+, Schistocytes 1+, Sodium Level 130L, Potassium Level 3.8 , Chloride Level 96L, Carbon Dioxide Level 24, Anion Gap 10, Blood Urea Nitrogen 51H, Creatinine 1.7H, Estimat Glomerular Filtration Rate , Glucose Level 102, Calcium Level 9.1, Total Bilirubin 0.9, Aspartate Amino Transf (AST/ SGOT) 22, Alanine Aminotransferase (ALT/SGPT) 17, Alkaline Phosphatase 139H, Total Protein 7.0, Albumin 2.5L, Globulin 4.5, Albumin/Globulin Ratio 0.6L, Lipase 106 04/12/18 09:05: White Blood Count 14.5H, Red Blood Count 3.32L, Hemoglobin 10.1L, Hematocrit 30.8L, Mean Corpuscular Volume 93, Mean Corpuscular Hemoglobin 30.5, Mean Corpuscular Hemoglobin Concent 32.9, Red Cell Distribution Width 14.0, Platelet Count 212, Mean Platelet Volume 7.1, Neutrophils (%) (Auto) , Lymphocytes (%) ( Auto) , Monocytes (%) (Auto) , Eosinophils (%) (Auto) , Basophils (%) (Auto) , Differential Total Cells Counted 100, Neutrophils % (Manual) 82H, Lymphocytes % (Manual) 6L, Monocytes % (Manual) 4, Eosinophils % (Manual) 0, Basophils % ( Manual) 1, Band Neutrophils 7, Platelet Estimate Adequate, Platelet Morphology Normal, Sodium Level 131L, Potassium Level 3.2L, Chloride Level 98, Carbon Dioxide Level 25, Anion Gap 8, Blood Urea Nitrogen 52H, Creatinine 1.5H, Estimat Glomerular Filtration Rate , Glucose Level 108H, Calcium Level 8.4L, Total Bilirubin 0.8, Aspartate Amino Transf (AST/SGOT) 15, Alanine Aminotransferase (ALT/SGPT) 14, Alkaline Phosphatase 110, Total Protein 5.7L, Albumin 2.1L, Globulin 3.6, Albumin/Globulin Ratio 0.6L, Anisocytosis 1+, Tear Drop Cells Occasional, Ovalocytes 1+, Hemoglobin A1c 5.1, Triglycerides Level 88 , Cholesterol Level 117, LDL Cholesterol 67, HDL Cholesterol 18L, Cholesterol/ HDL Ratio 6.5H, Thyroid Stimulating Hormone (TSH) 3.309 Height (Feet): 5 Height (Inches): 2.00 Weight (Pounds): 121 Objective Thin WW NCAT supple CTA RRR soft abdomen, but distended diastasis defect no edema non focal Cecilio Hendricks MD Apr 12, 2018 14:38
--- NOTE | 2018-04-12 14:47 | History & Physical ---
History and Physical History & Physicial HP dictated # [id number] Simeon Mccallum MD Apr 12, 2018 14:47
[2018-04-12] MEDS ORDERED: D5 1/2NS 1000ml IV ONE (14:59)
[2018-04-12 16:00] VITALS: BP 132/73
[2018-04-12 20:00] VITALS: BP 142/71
--- NOTE | 2018-04-12 22:17 | Cardiology Progress Note ---
Assessment/Plan Assessment/Plan the patient is hemodynamically stable, and is being treated for possible SBO her potassium level is noted, she is NPO, no cardiac meds, will follow Subjective Subjective The patient is laying in bed, family at the bedside she is compalining on weakness, but no chest pain Objective Last 24 Hour Vital Signs Date Time Temp Pulse Resp B/P (MAP) Pulse Ox O2 Delivery O2 Flow Rate FiO2 04/12/18 20:00 98.0 74 16 142/71 (94) 96 98.0 04/12/18 16:00 98.7 77 20 132/73 (92) 92 98.7 04/12/18 12:00 98.5 77 19 125/69 (87) 91 98.5 04/12/18 09:00 Room Air 04/12/18 08:17 116/67 04/12/18 08:00 98.3 74 20 116/67 (83) 91 98.3 04/12/18 04:35 Room Air 04/12/18 04:00 98.1 80 20 136/76 (96) 94 98.1 04/12/18 03:30 97.8 75 19 118/57 94 Room Air 04/12/18 00:38 74 14 116/57 95 Room Air 04/11/18 22:50 97.9 75 16 114/72 97 Room Air 97.9 04/11/18 22:40 97.9 79 16 108/78 92 Room Air 97.9 General Appearance: other - cachectic, NG tube is draining copious amt of gastric content EENT: pale conjunctivae Neck: JVD Rhythm: NSR Cardiovascular: regular rhythm Respiratory/Chest: crackles/rales Abdomen: other - very distended , hyperactive BS Extremities: trace edema Intake and Output 04/11/18 04/12/18 18:59 06:59 Intake Total 200 ml Output Total 350 ml Balance -150 ml Intake Oral 50 ml IV Total 150 ml Emesis 350 ml Laboratory Tests Test 04/11/18 23:00 04/12/18 09:05 White Blood Count 13.8 K/UL (4.8-10.8) H 14.5 K/UL (4.8-10.8) H Red Blood Count 3.95 M/UL (4.20-5.40) L 3.32 M/UL (4.20-5.40) L Hemoglobin 12.1 G/DL (12.0-16.0) 10.1 G/DL (12.0-16.0) L Hematocrit 36.3 % (37.0-47.0) L 30.8 % (37.0-47.0) L Mean Corpuscular Volume 92 FL (80-99) 93 FL (80-99) Mean Corpuscular Hemoglobin 30.7 PG (27.0-31.0) 30.5 PG (27.0-31.0) Mean Corpuscular Hemoglobin Concent 33.4 G/DL (32.0-36.0) 32.9 G/DL (32.0-36.0) Red Cell Distribution Width 13.8 % (11.6-14.8) 14.0 % (11.6-14.8) Platelet Count 233 K/UL (150-450) 212 K/UL (150-450) Mean Platelet Volume 7.3 FL (6.5-10.1) 7.1 FL (6.5-10.1) Neutrophils (%) (Auto) % (45.0-75.0) % (45.0-75.0) Lymphocytes (%) (Auto) % (20.0-45.0) % (20.0-45.0) Monocytes (%) (Auto) % (1.0-10.0) % (1.0-10.0) Eosinophils (%) (Auto) % (0.0-3.0) % (0.0-3.0) Basophils (%) (Auto) % (0.0-2.0) % (0.0-2.0) Differential Total Cells Counted 100 100 Neutrophils % (Manual) 93 % (45-75) H 82 % (45-75) H Lymphocytes % (Manual) 2 % (20-45) L 6 % (20-45) L Monocytes % (Manual) 5 % (1-10) 4 % (1-10) Eosinophils % (Manual) 0 % (0-3) 0 % (0-3) Basophils % (Manual) 0 % (0-2) 1 % (0-2) Band Neutrophils 0 % (0-8) 7 % (0-8) Platelet Estimate Adequate Adequate Platelet Morphology Normal Normal Acanthocytes 1+ Schistocytes 1+ Sodium Level 130 MMOL/L (136-145) L 131 MMOL/L (136-145) L Potassium Level 3.8 MMOL/L (3.5-5.1) 3.2 MMOL/L (3.5-5.1) L Chloride Level 96 MMOL/L (98-107) L 98 MMOL/L (98-107) Carbon Dioxide Level 24 MMOL/L (21-32) 25 MMOL/L (21-32) Anion Gap 10 mmol/L (5-15) 8 mmol/L (5-15) Blood Urea Nitrogen 51 mg/dL (7-18) H 52 mg/dL (7-18) H Creatinine 1.7 MG/DL (0.55-1.30) H 1.5 MG/DL (0.55-1.30) H Estimat Glomerular Filtration Rate mL/min (>60) mL/min (>60) Glucose Level 102 MG/DL (74-106) 108 MG/DL (74-106) H Calcium Level 9.1 MG/DL (8.5-10.1) 8.4 MG/DL (8.5-10.1) L Total Bilirubin 0.9 MG/DL (0.2-1.0) 0.8 MG/DL (0.2-1.0) Aspartate Amino Transf (AST/SGOT) 22 U/L (15-37) 15 U/L (15-37) Alanine Aminotransferase (ALT/SGPT) 17 U/L (12-78) 14 U/L (12-78) Alkaline Phosphatase 139 U/L (46-116) H 110 U/L (46-116) Total Protein 7.0 G/DL (6.4-8.2) 5.7 G/DL (6.4-8.2) L Albumin 2.5 G/DL (3.4-5.0) L 2.1 G/DL (3.4-5.0) L Globulin 4.5 g/dL 3.6 g/dL Albumin/Globulin Ratio 0.6 (1.0-2.7) L 0.6 (1.0-2.7) L Lipase 106 U/L (73-393) Anisocytosis 1+ Tear Drop Cells Occasional Ovalocytes 1+ Hemoglobin A1c 5.1 % (4.3-6.0) Triglycerides Level 88 MG/DL (30-150) Cholesterol Level 117 MG/DL (< 200) LDL Cholesterol 67 mg/dL (<100) HDL Cholesterol 18 MG/DL (40-60) L Cholesterol/HDL Ratio 6.5 (3.3-4.4) H Thyroid Stimulating Hormone (TSH) 3.309 uiU/mL (0.358-3.740) Microbiology Date/Time Source Procedure Growth Status 04/12/18 06:00 Rectum Received Kusum Wilcox MD Apr 12, 2018 22:17
--- NOTE | 2018-04-12 23:45 | History and Physical Report ---
DATE OF ADMISSION: 04/11/2018 CHIEF COMPLAINT: Nausea and vomiting. HISTORY OF PRESENT ILLNESS: This is an 87-year-old female, who was just discharged from the hospital and went to [facility] for rehabilitation. A few hours after being in the jail facility, she is still having vomiting. They next contacted me and Zofran was ordered, however, the patient continued to have vomiting and finally she was sent to the emergency room. The patient received an NG tube and was admitted. As mentioned, she had a recent admission to the hospital when she was found to have a large abdominal hernia, however, workup was negative for any pathology. She had upper endoscopy, which was negative and the patient was also seen by Dr. Rogers for surgery and was not found to have a surgical abdomen. PAST MEDICAL HISTORY: 1. History of ____ osteoarthritis. 2. History of diverticulosis. 3. History of hypertension. MEDICATIONS: Reviewed in the EMR. SOCIAL HISTORY: No history of smoking or alcohol abuse. The patient lives with son. ALLERGIES: No known drug allergies. REVIEW OF SYSTEMS: Noncontributory except above. PHYSICAL EXAMINATION: GENERAL: The patient is an elderly female, in no acute distress. VITAL SIGNS: Blood pressure 108/78, pulse 79, respiratory rate 16, and temperature 97.9 degrees. HEENT: [place] conjunctivae. Anicteric sclerae. NECK: Supple. LUNGS: Clear to auscultation. HEART: S1 and S2 without murmurs or rubs. ABDOMEN: Soft and distended. EXTREMITIES: No cyanosis or edema. LABORATORY FINDINGS: CBC shows WBC of 14,500, hematocrit is 30.8, hemoglobin is 9.1, and platelets 212,000. Chemistry panel shows serum sodium 131, potassium 3.2, chloride 98, CO2 25, BUN is 52, creatinine 1.5, glucose of 108, and albumin is 2.1. ASSESSMENT: This is an 87-year-old female, who was admitted with nausea and vomiting. She is feeling better now after NG tube was inserted. Etiology of vomiting is not completely clear. She may have a small bowel obstruction. PLAN: The patient will be NPO, on IV fluids. The patient was seen by Dr. Hendricks and further studies will be done. Labs will be followed and adjustments will be made in the patient's regimen. Simeon Mccallum M.D. DR: NIKHIL JOB#: [id number] CC:
[2018-04-13] VITALS: BP 135/69
[2018-04-13] MEDS: NS w/KCl 20mEq 1,000 ML IV SCH ×2 (02:25→16:07)
[2018-04-13 04:00] VITALS: BP 135/70
[2018-04-13 08:00] VITALS: BP 152/73
[2018-04-13] MEDS: Pantoprazole Inj IV SCH (09:03)
[2018-04-13 12:00] VITALS: BP_SYST 140; BP_SYST 149; BP_DIAS 68; BP_DIAS 73
--- NOTE | 2018-04-13 14:20 | Consultation ---
History of Present Illness General Date patient seen: Apr 13, 2018 Chief Complaint: Abdominal Pain Reason for Consultation: abdominal pain Present Illness HPI 87 year old female recently discharged returns with abdominal pain, nausea, and emesis. please refer to prior admission notes for details. went home in stable condition but that evening began to develops abdominal pain, nausea, then emesis. Returned to ED where NG tube placed and >[address] with gastric and small bowel distention. Patient admitted for care and management. Surgery called to evaluate for possible sbo. patient seen, chart reviewed, patient examined. Allergies: Coded Allergies: Dairy (Verified Allergy, Severe, GI UPSET, 11/19/08) Medication History Scheduled Amiodarone Hcl* (Pacerone*), 100 MG ORAL DAILY, (Reported) Ascorbic Acid* (Vitamin C*), 500 MG ORAL DAILY, (Reported) Aspirin* (Aspirin*), 81 MG ORAL DAILY, (Reported) Calcium Citrate/Vitamin D3 (Calcium Citrate - Vit D Caplet), 1 EACH PO DAILY, ( Reported) Docusate Sodium* (Docusate Sodium*), 100 MG ORAL BEDTIME, (Reported) Folic Acid* (Folic Acid*), 1 MG ORAL DAILY, (Reported) Folic Acid* (Folic Acid*), 1 MG ORAL DAILY, (Reported) Levothyroxine Sodium* (Synthroid*), 25 MCG ORAL DAILY, (Reported) Lisinopril* (Lisinopril*), 10 MG ORAL DAILY, (Reported) Multivitamin/Iron/Folic Acid (Centrum Complete Multivit Tab), 1 EACH PO DAILY, ( Reported) Niacin (Niaspan), 1,500 MG ORAL HS, (Reported) Pantoprazole* (Pantoprazole*), 40 MG ORAL DAILY, (Reported) Simvastatin (Zocor), 10 MG ORAL BEDTIME, (Reported) Miscellaneous Medications Ubiquinone (Ultra Coq10), 75 MG PO, (Reported) [fish oil], (Reported) [glucosamine], (Reported) [iron citrate], (Reported) [magnesium citrate], (Reported) Patient History History Provided By: Patient, Family Member, Medical Record Healthcare decision maker Resuscitation status Full Code Advanced Directive on File Past Medical/Surgical History Past Medical/Surgical History: (1) Contusion, knee (2) Pain (3) Pain (4) Common bile duct (CBD) obstruction (5) CAD (coronary artery disease) (6) Hypertension (7) HTN (hypertension) (8) Vomiting (9) Dehydration (10) SOPHIE (acute kidney injury) (11) Ventral hernia with bowel obstruction (12) Intractable vomiting with nausea Review of Systems All Other Systems: negative except mentioned in HPI Physical Exam General Appearance: no apparent distress, alert Lines, tubes and drains: peripheral HEENT: normocephalic, atraumatic, mucous membranes moist Neck: normal inspection Respiratory/Chest: normal breath sounds, no respiratory distress, no accessory muscle use Cardiovascular/Chest: normal rate Abdomen: non tender, soft, decreased bowel sounds, distended Extremities: normal inspection Skin Exam: warm/dry Neurologic: alert, oriented x 3 Last 24 Hour Vital Signs Date Time Temp Pulse Resp B/P (MAP) Pulse Ox O2 Delivery O2 Flow Rate FiO2 04/13/18 12:00 98.8 71 16 140/68 (92) 95 98.8 04/13/18 09:00 Room Air 04/13/18 08:00 98.2 69 18 152/73 (99) 94 98.2 04/13/18 04:00 98.2 72 16 135/70 (91) 99 98.2 04/13/18 00:00 98.2 75 16 135/69 (91) 98 98.2 04/12/18 21:00 Room Air 04/12/18 20:00 98.0 74 16 142/71 (94) 96 98.0 04/12/18 16:00 98.7 77 20 132/73 (92) 92 98.7 Intake and Output 04/12/18 04/13/18 19:00 07:00 Intake Total 750 ml Output Total 950 ml 500 ml Balance -950 ml 250 ml IV Total 750 ml Output Urine Total 200 ml Gastric Drainage Total 950 ml 300 ml # Voids 3 Height (Feet): 5 Height (Inches): 2.00 Weight (Pounds): 121 Medications Current Medications Medications (Trade) Dose Ordered Sig/Lainey Route PRN Reason Start Time Stop Time Status Last Admin Dose Admin Acetaminophen (Tylenol) 650 mg Q4H PRN RECTAL Mild Pain (Pain Scale 1-3) 04/12/18 12:00 05/12/18 11:59 Barium Sulfate (Readi-Cat 2) 450 ml NOW PRN ORAL Radiology Procedure 04/11/18 23:00 04/13/18 22:48 Dextrose (Dextrose 50%) 25 ml Q30M PRN IV Hypoglycemia 04/12/18 00:00 05/12/18 00:00 Dextrose (Dextrose 50%) 50 ml Q30M PRN IV Hypoglycemia 04/12/18 00:00 05/12/18 00:00 Levothyroxine Sodium (Synthroid) 12.5 mcg DAILY IV 04/13/18 09:00 05/13/18 08:59 04/13/18 09:03 Magnesium Hydroxide (Mom) 30 ml HSPRN PRN ORAL Constipation 04/12/18 00:00 05/12/18 00:00 Morphine Sulfate (Morphine Sulfate) 2 mg Q3H PRN IVP Moderate Pain (Pain Scale 4-6) 04/12/18 00:00 04/19/18 00:00 Morphine Sulfate (Morphine Sulfate) 4 mg Q3H PRN IVP Severe Pain (Pain Scale 7-10) 04/12/18 00:00 04/19/18 00:00 Ondansetron HCl (Zofran) 4 mg EVERY 4 HOURS PRN IVP Nausea & Vomiting 04/12/18 00:00 05/12/18 00:00 Pantoprazole (Protonix) 40 mg DAILY IV 04/12/18 09:00 05/12/18 08:59 04/13/18 09:03 Sodium Chloride 1,000 ml @ 75 mls/hr [id number] IV 04/12/18 13:00 05/12/18 12:59 04/13/18 02:25 Temazepam (Restoril) 15 mg HSPRN PRN ORAL Insomnia 04/12/18 00:00 04/19/18 00:00 Assessment/Plan Problem List: (1) Intractable vomiting with nausea Assessment & Plan: Gastric distention Small bowel distention leukocytosis possible SBO vs internal hernia complex case. last admission had full work up for similar symptoms. gastric studies and test normal continues to have distention and inability to tolerate oral intake without n/v Plan for contrast GI study tomorrow to r/o obstruction. CT reviewed. need to ensure no distal obstruction. NPO IV fluids NG tube decompression thank you. will follow with recs. ICD Codes: R11.2 - Nausea with vomiting, unspecified SNOMED: 217508635 Qualifiers: Qualified Codes: R11.2 - Nausea with vomiting, unspecified Status: stable Samuel Rogers Apr 13, 2018 14:20
--- NOTE | 2018-04-13 14:48 | General Progress Note ---
Assessment/Plan Problem List: (1) SOPHIE (acute kidney injury) ICD Codes: N17.9 - Acute kidney failure, unspecified SNOMED: 66552082 (2) Vomiting ICD Codes: R11.10 - Vomiting, unspecified SNOMED: 837382116 (3) HTN (hypertension) ICD Codes: I10 - Essential (primary) hypertension SNOMED: 35080289 Assessment/Plan IVF serrano check UA and C&S discussed with Dr Rogers and son follow labs Subjective Allergies: Coded Allergies: Dairy (Verified Allergy, Severe, GI UPSET, 11/19/08) Subjective In NAD Objective Last 24 Hour Vital Signs Date Time Temp Pulse Resp B/P (MAP) Pulse Ox O2 Delivery O2 Flow Rate FiO2 04/13/18 12:00 98.8 71 16 140/68 (92) 95 98.8 04/13/18 09:00 Room Air 04/13/18 08:00 98.2 69 18 152/73 (99) 94 98.2 04/13/18 04:00 98.2 72 16 135/70 (91) 99 98.2 04/13/18 00:00 98.2 75 16 135/69 (91) 98 98.2 04/12/18 21:00 Room Air 04/12/18 20:00 98.0 74 16 142/71 (94) 96 98.0 04/12/18 16:00 98.7 77 20 132/73 (92) 92 98.7 Intake and Output 04/12/18 04/13/18 19:00 07:00 Intake Total 750 ml Output Total 950 ml 500 ml Balance -950 ml 250 ml IV Total 750 ml Output Urine Total 200 ml Gastric Drainage Total 950 ml 300 ml # Voids 3 Height (Feet): 5 Height (Inches): 2.00 Weight (Pounds): 121 Cardiovascular: normal rate Respiratory/Chest: lungs clear Edema: no edema noted Generalized Simeon Mccallum MD Apr 13, 2018 14:48
--- NOTE | 2018-04-13 15:20 | General Progress Note ---
Assessment/Plan Assessment/Plan Assessment - recurrent N/V - suspect intermittent PSBO or gastric outlet obstruction - leukocytosis - Azotmia Recommendations - Continue NGT --> LIS - repeat UGI/SBFT - surgical f/u Subjective Allergies: Coded Allergies: Dairy (Verified Allergy, Severe, GI UPSET, 11/19/08) Subjective NGT placed -- > 1250 in first 24 hours SBFT scheduled for Saturday Objective Last 24 Hour Vital Signs Date Time Temp Pulse Resp B/P (MAP) Pulse Ox O2 Delivery O2 Flow Rate FiO2 04/13/18 12:00 98.1 73 16 149/73 (98) 95 98.1 04/13/18 09:00 Room Air 04/13/18 08:00 98.2 69 18 152/73 (99) 94 98.2 04/13/18 04:00 98.2 72 16 135/70 (91) 99 98.2 04/13/18 00:00 98.2 75 16 135/69 (91) 98 98.2 04/12/18 21:00 Room Air 04/12/18 20:00 98.0 74 16 142/71 (94) 96 98.0 04/12/18 16:00 98.7 77 20 132/73 (92) 92 98.7 Intake and Output 04/12/18 04/13/18 19:00 07:00 Intake Total 750 ml Output Total 950 ml 500 ml Balance -950 ml 250 ml IV Total 750 ml Output Urine Total 200 ml Gastric Drainage Total 950 ml 300 ml # Voids 3 Height (Feet): 5 Height (Inches): 2.00 Weight (Pounds): 121 Objective Thin WW NCAT supple CTA RRR soft abdomen, but distended diastasis defect no edema non focal Cecilio Hendricks MD Apr 13, 2018 15:20
[2018-04-13 16:00] VITALS: BP 128/78
[2018-04-13] MEDS: Morphine Sulfate 4mg/ml Inj (IV/IM USE ONLY) IVP PRN ×2 (16:07→22:01)
[2018-04-13 20:00] VITALS: BP 132/72
--- NOTE | 2018-04-13 20:34 | Cardiology Progress Note ---
Assessment/Plan Assessment/Plan will check potassium level Subjective Subjective The patient still has abdominal distention and Ng tube on succion no cardiac complaints Objective Last 24 Hour Vital Signs Date Time Temp Pulse Resp B/P (MAP) Pulse Ox O2 Delivery O2 Flow Rate FiO2 04/13/18 20:00 98.2 76 20 132/72 (92) 93 98.2 04/13/18 16:00 97.4 80 20 128/78 (95) 93 97.4 04/13/18 12:00 98.1 73 16 149/73 (98) 95 98.1 04/13/18 09:00 Room Air 04/13/18 08:00 98.2 69 18 152/73 (99) 94 98.2 04/13/18 04:00 98.2 72 16 135/70 (91) 99 98.2 04/13/18 00:00 98.2 75 16 135/69 (91) 98 98.2 04/12/18 21:00 Room Air General Appearance: alert, other - NG to siccions EENT: PERRL/EOMI Neck: supple Rhythm: NSR Cardiovascular: normal rate Respiratory/Chest: crackles/rales Abdomen: hyperactive bowel sounds, distended Intake and Output 04/12/18 04/13/18 19:00 07:00 Intake Total 750 ml Output Total 950 ml 500 ml Balance -950 ml 250 ml IV Total 750 ml Output Urine Total 200 ml Gastric Drainage Total 950 ml 300 ml # Voids 3 Microbiology Date/Time Source Procedure Growth Status 04/12/18 06:00 Rectum Received Kusum Wilcox MD Apr 13, 2018 20:34
[2018-04-13 21:28] LABS: ANION GAP 12 mmol/L (5-15); BLOOD UREA NITROGEN 50 mg/dL (7-18); CALCIUM 8.7 MG/DL (8.5-10.1); CARBON DIOXIDE 21 MMOL/L (21-32); CHLORIDE 105 MMOL/L (98-107); CREATININE 1.1 MG/DL (0.55-1.30); POTASSIUM 4.2 MMOL/L (3.5-5.1); SODIUM 138 MMOL/L (136-145)
[2018-04-13 22:54] LABS: APPEARANCE,URINE SLIGHTLY CLOUDY; BILIRUBIN, URINE 1+ (NEGATIVE); COLOR,URINE AMBER; GLUCOSE, URINE (UA) NEGATIVE (NEGATIVE); KETONES,URINE NEGATIVE (NEGATIVE); LEUKOCYTE ESTERASE ,URINE 2+ (NEGATIVE); NITRITE,URINE NEGATIVE (NEGATIVE); PH,URINE 6.5 (4.5-8.0); PROTEIN,URINE 1+ (NEGATIVE); UROBILINOGEN,URINE NORMAL MG/DL (0.0-1.0)
[2018-04-14] VITALS: BP 151/69
[2018-04-14 04:00] VITALS: BP 131/68
[2018-04-14] MEDS: NS w/KCl 20mEq 1,000 ML IV SCH ×3 (05:23→22:31)
[2018-04-14 07:31] LABS: HEMATOCRIT 30.6 % (37.0-47.0); HEMOGLOBIN 9.9 G/DL (12.0-16.0); MEAN CORPUSCULAR VOLUME 95 FL (80-99); PLATELET COUNT 243 K/UL (150-450); RED BLOOD COUNT 3.22 M/UL (4.20-5.40); RED CELL DISTRIBUTION WIDTH 14.4 % (11.6-14.8); WHITE BLOOD COUNT 16.8 K/UL (4.8-10.8)
[2018-04-14 07:43] LABS: ANION GAP 13 mmol/L (5-15); BLOOD UREA NITROGEN 46 mg/dL (7-18); CARBON DIOXIDE 22 MMOL/L (21-32); CHLORIDE 107 MMOL/L (98-107); POTASSIUM 4.2 MMOL/L (3.5-5.1); SODIUM 141 MMOL/L (136-145)
[2018-04-14 08:00] VITALS: BP 137/65
[2018-04-14] MEDS: Pantoprazole Inj IV SCH (09:00)
--- NOTE | 2018-04-14 09:28 | Diagnostic Imaging Report ---
Indication: Acute renal failure Technique: Grayscale and duplex Doppler imaging of the kidneys performed. Comparison: None Findings: There is persistent moderate bilateral hydronephrosis secondary to severe dilatation of the urinary bladder approximate volume of 900 cc. The findings noted on previous noncontrast CT done 04/12/2018, and findings were conveyed as a critical value to the emergency Department. The right kidney is 11 cm and the left kidney is 10 cm in length. There is a cystic mass in the lower pole the left kidney measuring 1.2 cm not well imaged on this study. The IVC is unremarkable. IMPRESSION: Severe distention of the urinary bladder and urinary retention most likely accounting for moderate bilateral hydronephrosis. This may account for the renal failure. The findings were initially conveyed to the emergency department at the time of the CT abdomen pelvis performed 04/12/2018 at 01:46. Per discussion with the floor nurse on 4 E. just now, a [place] catheter was successfully placed last night. Follow-up ultrasound is suggested.
[2018-04-14] MEDS: Morphine Sulfate 4mg/ml Inj (IV/IM USE ONLY) IVP PRN ×2 (09:31→14:18)
--- NOTE | 2018-04-14 11:04 | Diagnostic Imaging Report ---
Indication: Dyspnea Comparison: 01/23/2017 A single view chest radiograph was obtained. Findings: Pulmonary vascularity appears prominent. The heart is enlarged. Sternotomy is again noted. NG tube is in good position. There may be a right pleural effusion present. Bones are moderately osteopenic. IMPRESSION: Suspect congestive heart failure. Suspect right pleural effusion.
[2018-04-14 12:00] VITALS: BP 138/70
[2018-04-14] MEDS ORDERED: Heparin 2000 units/Ns 1000ml INJ PRN (12:15)
[2018-04-14] MEDS ORDERED: Nitroglycerin 2% oint pkt TOPIC PRN (13:02)
--- NOTE | 2018-04-14 15:47 | General Surgery Progress Note ---
General Surgery-Progress Note Subjective Symptoms: worse Additional Comments leukocytosis. CXR noted Objective Last 24 Hour Vital Signs Date Time Temp Pulse Resp B/P (MAP) Pulse Ox O2 Delivery O2 Flow Rate FiO2 04/14/18 14:18 97.7 04/14/18 12:00 97.7 76 18 138/70 (92) 97.7 04/14/18 09:00 Room Air 04/14/18 08:00 97.7 77 19 137/65 (89) 97 97.7 04/14/18 04:00 97.8 71 16 131/68 (89) 95 97.8 04/14/18 00:00 98.2 77 20 151/69 (96) 96 98.2 04/13/18 21:00 Room Air 04/13/18 20:00 98.2 76 20 132/72 (92) 93 98.2 04/13/18 16:00 97.4 80 20 128/78 (95) 93 97.4 I&O Intake and Output 04/13/18 04/14/18 19:00 07:00 Intake Total 75 ml 750 ml Output Total 600 ml 2200 ml Balance -525 ml -1450 ml IV Total 75 ml 750 ml Output Urine Total 2100 ml Gastric Drainage Total 600 ml 100 ml # Voids 1 Drains: none Cardiovascular: RSR Respiratory: clear, decreased breath sounds Abdomen: soft, distended, non-tender, present bowel sounds Extremities: other Laboratory Tests Test 04/13/18 18:30 04/13/18 20:55 04/14/18 06:40 Urine Color Anabel Urine Appearance Slightly cloudy Urine pH 6.5 (4.5-8.0) Urine Specific [place] 1.005 (1.005-1.035) Urine Protein 1+ (NEGATIVE) H Urine Glucose (UA) Negative (NEGATIVE) Urine Ketones Negative (NEGATIVE) Urine Blood 3+ (NEGATIVE) H Urine Nitrite Negative (NEGATIVE) Urine Bilirubin 1+ (NEGATIVE) H Urine Ictotest Negative (NEGATIVE) Urine Urobilinogen Normal MG/DL (0.0-1.0) Urine Leukocyte Esterase 2+ (NEGATIVE) H Urine RBC 5-10 /HPF (0 - 2) H Urine WBC 15-20 /HPF (0 - 2) H Urine Squamous Epithelial Cells Moderate /LPF (NONE/OCC) H Urine Bacteria Many /HPF (NONE) H Sodium Level 138 MMOL/L (136-145) 141 MMOL/L (136-145) Potassium Level 4.2 MMOL/L (3.5-5.1) 4.2 MMOL/L (3.5-5.1) Chloride Level 105 MMOL/L (98-107) 107 MMOL/L (98-107) Carbon Dioxide Level 21 MMOL/L (21-32) 22 MMOL/L (21-32) Anion Gap 12 mmol/L (5-15) 13 mmol/L (5-15) Blood Urea Nitrogen 50 mg/dL (7-18) H 46 mg/dL (7-18) H Creatinine 1.1 MG/DL (0.55-1.30) 1.0 MG/DL (0.55-1.30) Estimat Glomerular Filtration Rate mL/min (>60) mL/min (>60) Glucose Level 63 MG/DL (74-106) L 55 MG/DL (74-106) L Calcium Level 8.7 MG/DL (8.5-10.1) 9.0 MG/DL (8.5-10.1) White Blood Count 16.8 K/UL (4.8-10.8) H Red Blood Count 3.22 M/UL (4.20-5.40) L Hemoglobin 9.9 G/DL (12.0-16.0) L Hematocrit 30.6 % (37.0-47.0) L Mean Corpuscular Volume 95 FL (80-99) Mean Corpuscular Hemoglobin 30.8 PG (27.0-31.0) Mean Corpuscular Hemoglobin Concent 32.4 G/DL (32.0-36.0) Red Cell Distribution Width 14.4 % (11.6-14.8) Platelet Count 243 K/UL (150-450) Mean Platelet Volume 6.5 FL (6.5-10.1) Neutrophils (%) (Auto) % (45.0-75.0) Lymphocytes (%) (Auto) % (20.0-45.0) Monocytes (%) (Auto) % (1.0-10.0) Eosinophils (%) (Auto) % (0.0-3.0) Basophils (%) (Auto) % (0.0-2.0) Differential Total Cells Counted 100 Neutrophils % (Manual) 92 % (45-75) H Lymphocytes % (Manual) 6 % (20-45) L Monocytes % (Manual) 2 % (1-10) Eosinophils % (Manual) 0 % (0-3) Basophils % (Manual) 0 % (0-2) Band Neutrophils 0 % (0-8) Platelet Estimate Adequate Platelet Morphology Normal Hypochromasia 2+ Anisocytosis 1+ Spherocytes 1+ Plan Problems: (1) Intractable vomiting with nausea Assessment & Plan: Gastric distention Small bowel distention leukocytosis possible SBO vs internal hernia complex case. last admission had full work up for similar symptoms. gastric studies and test normal continues to have distention and inability to tolerate oral intake without n/v Plan for contrast GI study r/o obstruction. CT reviewed. need to ensure no distal obstruction. Pending results NPO IV fluids NG tube decompression thank you. will follow with recs. Samuel Rogers Apr 14, 2018 15:47
[2018-04-14 16:00] VITALS: BP 142/79
[2018-04-14] MEDS: Dyna-Hex 2% Top Sol 2oz TOPIC SCH (20:00)
[2018-04-14 20:11] VITALS: BP 139/70
--- NOTE | 2018-04-14 20:54 | Cardiology Progress Note ---
Assessment/Plan Assessment/Plan 1. Abdominal pain. 2. Nausea and vomiting. 3. Mitral regurgitation. 4. Hypertension. 5. Coronary disease, status post coronary artery bypass graft. 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 watch for dhf on ivf bp seem ok iw increases will dc ivf ntp prn off oral mesds Subjective Cardiovascular: Denies: chest pain, lightheadedness, palpitations Respiratory: Denies: shortness of breath Gastrointestinal/Abdominal: Reports: abdominal pain Genitourinary: Denies: burning Objective Last 24 Hour Vital Signs Date Time Temp Pulse Resp B/P (MAP) Pulse Ox O2 Delivery O2 Flow Rate FiO2 04/14/18 20:26 Room Air 04/14/18 20:11 97.9 70 16 139/70 (93) 100 97.9 04/14/18 16:00 98.4 79 18 142/79 (100) 96 98.4 04/14/18 14:18 97.7 04/14/18 12:00 97.7 76 18 138/70 (92) 97.7 04/14/18 09:00 Room Air 04/14/18 08:00 97.7 77 19 137/65 (89) 97 97.7 04/14/18 04:00 97.8 71 16 131/68 (89) 95 97.8 04/14/18 00:00 98.2 77 20 151/69 (96) 96 98.2 04/13/18 21:00 Room Air General Appearance: alert Neck: supple Cardiovascular: normal rate, regular rhythm, systolic murmur Respiratory/Chest: lungs clear Abdomen: normal bowel sounds, soft Extremities: no swelling Intake and Output 04/13/18 04/14/18 19:00 07:00 Intake Total 75 ml 750 ml Output Total 600 ml 2200 ml Balance -525 ml -1450 ml IV Total 75 ml 750 ml Output Urine Total 2100 ml Gastric Drainage Total 600 ml 100 ml # Voids 1 Laboratory Tests Test 04/13/18 20:55 04/14/18 06:40 Sodium Level 138 MMOL/L (136-145) 141 MMOL/L (136-145) Potassium Level 4.2 MMOL/L (3.5-5.1) 4.2 MMOL/L (3.5-5.1) Chloride Level 105 MMOL/L (98-107) 107 MMOL/L (98-107) Carbon Dioxide Level 21 MMOL/L (21-32) 22 MMOL/L (21-32) Anion Gap 12 mmol/L (5-15) 13 mmol/L (5-15) Blood Urea Nitrogen 50 mg/dL (7-18) H 46 mg/dL (7-18) H Creatinine 1.1 MG/DL (0.55-1.30) 1.0 MG/DL (0.55-1.30) Estimat Glomerular Filtration Rate mL/min (>60) mL/min (>60) Glucose Level 63 MG/DL (74-106) L 55 MG/DL (74-106) L Calcium Level 8.7 MG/DL (8.5-10.1) 9.0 MG/DL (8.5-10.1) White Blood Count 16.8 K/UL (4.8-10.8) H Red Blood Count 3.22 M/UL (4.20-5.40) L Hemoglobin 9.9 G/DL (12.0-16.0) L Hematocrit 30.6 % (37.0-47.0) L Mean Corpuscular Volume 95 FL (80-99) Mean Corpuscular Hemoglobin 30.8 PG (27.0-31.0) Mean Corpuscular Hemoglobin Concent 32.4 G/DL (32.0-36.0) Red Cell Distribution Width 14.4 % (11.6-14.8) Platelet Count 243 K/UL (150-450) Mean Platelet Volume 6.5 FL (6.5-10.1) Neutrophils (%) (Auto) % (45.0-75.0) Lymphocytes (%) (Auto) % (20.0-45.0) Monocytes (%) (Auto) % (1.0-10.0) Eosinophils (%) (Auto) % (0.0-3.0) Basophils (%) (Auto) % (0.0-2.0) Differential Total Cells Counted 100 Neutrophils % (Manual) 92 % (45-75) H Lymphocytes % (Manual) 6 % (20-45) L Monocytes % (Manual) 2 % (1-10) Eosinophils % (Manual) 0 % (0-3) Basophils % (Manual) 0 % (0-2) Band Neutrophils 0 % (0-8) Platelet Estimate Adequate Platelet Morphology Normal Hypochromasia 2+ Anisocytosis 1+ Spherocytes 1+ Microbiology Date/Time Source Procedure Growth Status 04/12/18 06:00 Nasal Nares MRSA Culture - Final NO METHICILLIN RESISTANT STAPH AUREUS... Complete 04/12/18 23:10 Rectum VRE Culture - Final Enterococcus Faecalis - Vre Enterococcus Faecium - Vre Complete 04/12/18 06:00 Rectum - Final NO CARBAPENEM-RESISTANT ENTEROBACTERI... Complete Teo Gross MD Apr 14, 2018 20:54
--- NOTE | 2018-04-14 21:42 | General Progress Note ---
Assessment/Plan Assessment/Plan Assessment - recurrent N/V - suspect intermittent PSBO or gastric outlet obstruction - leukocytosis - Azotmia Recommendations - Continue NGT --> LIS - repeat UGI/SBFT pending - surgical f/u Subjective Allergies: Coded Allergies: Dairy (Verified Allergy, Severe, GI UPSET, 11/19/08) Subjective No new complaints d/w son at bedside SBFT pending Objective Last 24 Hour Vital Signs Date Time Temp Pulse Resp B/P (MAP) Pulse Ox O2 Delivery O2 Flow Rate FiO2 04/14/18 20:26 Room Air 04/14/18 20:11 97.9 70 16 139/70 (93) 100 97.9 04/14/18 16:00 98.4 79 18 142/79 (100) 96 98.4 04/14/18 14:18 97.7 04/14/18 12:00 97.7 76 18 138/70 (92) 97.7 04/14/18 09:00 Room Air 04/14/18 08:00 97.7 77 19 137/65 (89) 97 97.7 04/14/18 04:00 97.8 71 16 131/68 (89) 95 97.8 04/14/18 00:00 98.2 77 20 151/69 (96) 96 98.2 Intake and Output 04/13/18 04/14/18 19:00 07:00 Intake Total 75 ml 750 ml Output Total 600 ml 2200 ml Balance -525 ml -1450 ml IV Total 75 ml 750 ml Output Urine Total 2100 ml Gastric Drainage Total 600 ml 100 ml # Voids 1 Laboratory Tests 04/14/18 06:40: White Blood Count 16.8H, Red Blood Count 3.22L, Hemoglobin 9.9L, Hematocrit 30.6L, Mean Corpuscular Volume 95, Mean Corpuscular Hemoglobin 30.8, Mean Corpuscular Hemoglobin Concent 32.4, Red Cell Distribution Width 14.4, Platelet Count 243, Mean Platelet Volume 6.5, Neutrophils (%) (Auto) , Lymphocytes (%) ( Auto) , Monocytes (%) (Auto) , Eosinophils (%) (Auto) , Basophils (%) (Auto) , Differential Total Cells Counted 100, Neutrophils % (Manual) 92H, Lymphocytes % (Manual) 6L, Monocytes % (Manual) 2, Eosinophils % (Manual) 0, Basophils % ( Manual) 0, Band Neutrophils 0, Platelet Estimate Adequate, Platelet Morphology Normal, Hypochromasia 2+, Anisocytosis 1+, Spherocytes 1+, Sodium Level 141, Potassium Level 4.2, Chloride Level 107, Carbon Dioxide Level 22, Anion Gap 13, Blood Urea Nitrogen 46H, Creatinine 1.0, Estimat Glomerular Filtration Rate , Glucose Level 55L, Calcium Level 9.0 Height (Feet): 5 Height (Inches): 2.00 Weight (Pounds): 121 Objective Thin WW NCAT supple CTA RRR soft abdomen, but distended diastasis defect no edema non focal Cecilio Hendricks MD Apr 14, 2018 21:42
[2018-04-15 00:06] VITALS: BP 152/72
[2018-04-15 04:00] VITALS: BP 154/73
[2018-04-15 07:29] VITALS: BP 153/76
[2018-04-15] MEDS: Pantoprazole Inj IV SCH (10:05)
[2018-04-15 12:02] VITALS: BP 156/78
[2018-04-15] MEDS: NS w/KCl 20mEq 1,000 ML IV SCH (14:09)
--- NOTE | 2018-04-15 14:41 | General Progress Note ---
Assessment/Plan Problem List: (1) SOPHIE (acute kidney injury) ICD Codes: N17.9 - Acute kidney failure, unspecified SNOMED: 13785970 (2) Vomiting ICD Codes: R11.10 - Vomiting, unspecified SNOMED: 213606173 (3) HTN (hypertension) ICD Codes: I10 - Essential (primary) hypertension SNOMED: 17637998 Assessment/Plan IVF serrano IV Abxs discussed with son and RN and niece picc line follow labs Subjective Allergies: Coded Allergies: Dairy (Verified Allergy, Severe, GI UPSET, 11/19/08) Subjective In NAD Objective Last 24 Hour Vital Signs Date Time Temp Pulse Resp B/P (MAP) Pulse Ox O2 Delivery O2 Flow Rate FiO2 04/15/18 12:02 98.4 80 18 156/78 (104) 93 98.4 04/15/18 09:00 Room Air 04/15/18 07:29 98.4 80 18 153/76 (101) 93 98.4 04/15/18 04:00 98.4 79 18 154/73 (100) 93 98.4 04/15/18 00:06 98.4 78 16 152/72 (98) 93 98.4 04/14/18 20:26 Room Air 04/14/18 20:11 97.9 70 16 139/70 (93) 100 97.9 04/14/18 16:00 98.4 79 18 142/79 (100) 96 98.4 Intake and Output 04/14/18 04/15/18 19:00 07:00 Intake Total 750 ml 925 ml Balance 750 ml 925 ml IV Total 750 ml 925 ml # Voids 3 # Bowel Movements 3 3 Height (Feet): 5 Height (Inches): 2.00 Weight (Pounds): 121 Cardiovascular: normal rate Respiratory/Chest: lungs clear Abdomen: soft Edema: no edema noted Generalized Simeon Mccallum MD Apr 15, 2018 14:41
--- NOTE | 2018-04-15 14:44 | Diagnostic Imaging Report ---
Indication: Abdominal pain COMPARISON: None FINDINGS: Venetian Blind Worker images demonstrate a revised left total hip prosthesis, severe osteoporosis. There is contrast material within the colon from a previous CT. [place] catheter noted. Nasogastric tube noted. Small bowel series was performed utilizing water-soluble contrast material. Serial films were obtained. Initial images demonstrate mild dilatation of the small bowel. At one hour there is opacification of most of the jejunum. More distal small bowel and colon are not seen. The next film was obtained at 4.5 hours (a technical error). On this film, there is contrast material within the colon as well as a the terminal ileum. The terminal ileum appears relatively decompressed. In contrast to the examination from 04/12/[address] scan, the degree of small bowel dilatation has improved. There is no complete obstruction since contrast material clearly demonstrated within the colon. The possibility of a partial distal small bowel obstruction is not excluded. Other possibility is enteritis or ileus. Either way the degree of small bowel dilatation has improved. Please correlate clinically. IMPRESSION: Suboptimal small bowel series as described above. Improving partial small bowel obstruction in the distal small bowel versus mild enteritis/ileus. Findings appear improved at least from an imaging standpoint compared to the prior CT from 04/12/2018. Please correlate clinically. No evidence of complete bowel obstruction as there is contrast material passing into the colon.
--- NOTE | 2018-04-15 15:00 | General Surgery Progress Note ---
General Surgery-Progress Note Subjective Additional Comments Upper GI study reviewed Objective Last 24 Hour Vital Signs Date Time Temp Pulse Resp B/P (MAP) Pulse Ox O2 Delivery O2 Flow Rate FiO2 04/15/18 12:02 98.4 80 18 156/78 (104) 93 98.4 04/15/18 09:00 Room Air 04/15/18 07:29 98.4 80 18 153/76 (101) 93 98.4 04/15/18 04:00 98.4 79 18 154/73 (100) 93 98.4 04/15/18 00:06 98.4 78 16 152/72 (98) 93 98.4 04/14/18 20:26 Room Air 04/14/18 20:11 97.9 70 16 139/70 (93) 100 97.9 04/14/18 16:00 98.4 79 18 142/79 (100) 96 98.4 I&O Intake and Output 04/14/18 04/15/18 19:00 07:00 Intake Total 750 ml 925 ml Balance 750 ml 925 ml IV Total 750 ml 925 ml # Voids 3 # Bowel Movements 3 3 Dressing: other Wound: other Drains: none Cardiovascular: RSR Respiratory: clear Abdomen: soft, distended, non-tender, present bowel sounds Extremities: other Plan Problems: (1) Intractable vomiting with nausea Assessment & Plan: Gastric distention Small bowel distention leukocytosis possible SBO vs internal hernia complex case. last admission had full work up for similar symptoms. gastric studies and test normal continues to have distention and inability to tolerate oral intake without n/v Plan for contrast GI study r/o obstruction. CT reviewed. need to ensure no distal obstruction. No obstruction noted. contrast into colon. likely enteritis. also UTI. small multiple meals recommended. IV fluids thank you. will follow with recradha. Samuel Rogers Apr 15, 2018 15:00
[2018-04-15] MEDS: Piperacillin/Tazobactam 3.375 GM in D5W 110 ML IVPB SCH (16:06)
[2018-04-15 16:22] VITALS: BP 119/76
--- NOTE | 2018-04-15 16:30 | Diagnostic Imaging Report ---
Indication: Abdominal pain Comparison: 03/27/2018 Single view of the abdomen obtained Findings: All of the enteric contrast from a previous small bowel series has migrated into the colon and rectum. Bowel gas pattern is nonspecific on this study. Other findings stable. IMPRESSION: No significant change other than further propagation of contrast material now in the distal colon and rectum
[2018-04-15] MEDS: Dyna-Hex 2% Top Sol 2oz TOPIC SCH (19:43)
[2018-04-15 20:00] VITALS: BP 147/88
--- NOTE | 2018-04-15 20:21 | Cardiology Progress Note ---
Assessment/Plan Assessment/Plan 1. Abdominal pain. 2. Nausea and vomiting. 3. Mitral regurgitation. 4. Hypertension. 5. Coronary disease, status post coronary artery bypass graft. 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 watch for dhf on ivf bp seem ok if tolearated cleas will dc ivf tomorrow for nwo decrease to 50 form 75 cc / hr ntp prn off oral meds as npo has sig edema may need diuretics Subjective Cardiovascular: Denies: chest pain Respiratory: Denies: shortness of breath Genitourinary: Denies: burning Objective Last 24 Hour Vital Signs Date Time Temp Pulse Resp B/P (MAP) Pulse Ox O2 Delivery O2 Flow Rate FiO2 04/15/18 16:22 98.1 70 18 119/76 (90) 93 98.1 04/15/18 12:02 98.4 80 18 156/78 (104) 93 98.4 04/15/18 09:00 Room Air 04/15/18 07:29 98.4 80 18 153/76 (101) 93 98.4 04/15/18 04:00 98.4 79 18 154/73 (100) 93 98.4 04/15/18 00:06 98.4 78 16 152/72 (98) 93 98.4 04/14/18 20:26 Room Air General Appearance: no apparent distress, alert Cardiovascular: normal rate, regular rhythm, systolic murmur Respiratory/Chest: lungs clear Abdomen: normal bowel sounds, non tender, soft Extremities: no swelling Intake and Output 04/14/18 04/15/18 19:00 07:00 Intake Total 750 ml 925 ml Balance 750 ml 925 ml IV Total 750 ml 925 ml # Voids 3 # Bowel Movements 3 3 Microbiology Date/Time Source Procedure Growth Status 04/13/18 18:30 External Cath Urine Culture - Preliminary Gram Negative Bacillus 1 Resulted 04/12/18 23:10 Rectum VRE Culture - Final Enterococcus Faecalis - Vre Enterococcus Faecium - Vre Complete Teo Gross MD Apr 15, 2018 20:21
[2018-04-15] MEDS ORDERED: NS w/KCl 20mEq 1,000 ML IV SCH (21:00)
[2018-04-16] VITALS: BP 145/81
[2018-04-16] MEDS: Piperacillin/Tazobactam 3.375 GM in D5W 110 ML IVPB SCH ×2 (03:53→15:13)
[2018-04-16 04:00] VITALS: BP 139/94
[2018-04-16 08:10] VITALS: BP 160/94
[2018-04-16] MEDS: Pantoprazole Inj IV SCH (08:44)
--- NOTE | 2018-04-16 09:50 | General Surgery Progress Note ---
General Surgery-Progress Note Subjective Additional Comments no acute events. X rays reviewed. Objective Last 24 Hour Vital Signs Date Time Temp Pulse Resp B/P (MAP) Pulse Ox O2 Delivery O2 Flow Rate FiO2 04/16/18 09:28 Room Air 04/16/18 08:10 97.6 80 18 160/94 (116) 91 97.6 04/16/18 04:00 97.6 93 18 139/94 (109) 91 97.6 04/16/18 00:00 97.3 57 18 145/81 (102) 94 97.3 04/15/18 20:25 Room Air 04/15/18 20:00 98.1 70 18 147/88 (107) 93 98.1 04/15/18 16:22 98.1 70 18 119/76 (90) 93 98.1 04/15/18 12:02 98.4 80 18 156/78 (104) 93 98.4 I&O Intake and Output 04/15/18 04/16/18 19:00 07:00 Intake Total 450 ml 542.5 ml Output Total 1530 ml 650 ml Balance -1080 ml -107.5 ml IV Total 450 ml 542.5 ml Output Urine Total 1400 ml 650 ml Gastric Drainage Total 130 ml # Bowel Movements 5 Cardiovascular: RSR Respiratory: clear Abdomen: soft, distended, non-tender, present bowel sounds Extremities: no cyanosis Plan Problems: (1) Intractable vomiting with nausea Assessment & Plan: Gastric distention Small bowel distention leukocytosis possible SBO vs internal hernia complex case. last admission had full work up for similar symptoms. gastric studies and test normal continues to have distention and inability to tolerate oral intake without n/v Plan for contrast GI study r/o obstruction. CT reviewed. need to ensure no distal obstruction. No obstruction noted. contrast into colon. likely enteritis possible psbo resolved. also UTI. small portion multiple meals recommended. must be in chair during diet. no diet in bed. IV fluids thank you. will follow with recs. Samuel Rogers Apr 16, 2018 09:50
[2018-04-16 12:05] LABS: ALANINE AMINOTRANSFERASE 6 U/L (12-78); ALBUMIN 2.2 G/DL (3.4-5.0); ALBUMIN/GLOBULIN RATIO 0.6 (1.0-2.7); ALKALINE PHOSPHATASE 92 U/L (46-116); ANION GAP 11 mmol/L (5-15); ASPARTATE AMINO TRANSFERASE 13 U/L (15-37); BILIRUBIN,TOTAL 0.6 MG/DL (0.2-1.0); BLOOD UREA NITROGEN 25 mg/dL (7-18); CALCIUM 9.3 MG/DL (8.5-10.1); CARBON DIOXIDE 24 MMOL/L (21-32); CHLORIDE 113 MMOL/L (98-107); CREATININE 0.7 MG/DL (0.55-1.30); POTASSIUM 3.7 MMOL/L (3.5-5.1); SODIUM 148 MMOL/L (136-145)
[2018-04-16 12:51] VITALS: BP 159/50
[2018-04-16] MEDS ORDERED: Heparin 2000 units/Ns 1000ml INJ PRN (13:00)
[2018-04-16] MEDS ORDERED: Lidocaine 1% Plain 30 ml INJ PRN (13:00)
--- NOTE | 2018-04-16 13:36 | General Progress Note ---
Assessment/Plan Problem List: (1) SOPHIE (acute kidney injury) Assessment & Plan: better ICD Codes: N17.9 - Acute kidney failure, unspecified SNOMED: 14704647 (2) Vomiting Assessment & Plan: beeter ICD Codes: R11.10 - Vomiting, unspecified SNOMED: 596996947 (3) HTN (hypertension) ICD Codes: I10 - Essential (primary) hypertension SNOMED: 86338514 (4) UTI (urinary tract infection) Assessment & Plan: with E coli ICD Codes: N39.0 - Urinary tract infection, site not specified SNOMED: 21885171 (5) Hypernatremia ICD Codes: E87.0 - Hyperosmolality and hypernatremia SNOMED: 11766970 Assessment/Plan IVF D5W IV Abxs discussed with son and RN follow labs advance diet Subjective Allergies: Coded Allergies: Dairy (Verified Allergy, Severe, GI UPSET, 11/19/08) Subjective eats some Objective Last 24 Hour Vital Signs Date Time Temp Pulse Resp B/P (MAP) Pulse Ox O2 Delivery O2 Flow Rate FiO2 04/16/18 12:51 97.6 100 18 159/50 (86) 91 97.6 04/16/18 09:28 Room Air 04/16/18 08:10 97.6 80 18 160/94 (116) 91 97.6 04/16/18 04:00 97.6 93 18 139/94 (109) 91 97.6 04/16/18 00:00 97.3 57 18 145/81 (102) 94 97.3 04/15/18 20:25 Room Air 04/15/18 20:00 98.1 70 18 147/88 (107) 93 98.1 04/15/18 16:22 98.1 70 18 119/76 (90) 93 98.1 Intake and Output 04/15/18 04/16/18 19:00 07:00 Intake Total 450 ml 542.5 ml Output Total 1530 ml 650 ml Balance -1080 ml -107.5 ml IV Total 450 ml 542.5 ml Output Urine Total 1400 ml 650 ml Gastric Drainage Total 130 ml # Bowel Movements 5 Laboratory Tests 04/16/18 11:05: Sodium Level 148H, Potassium Level 3.7, Chloride Level 113H, Carbon Dioxide Level 24, Anion Gap 11, Blood Urea Nitrogen 25H, Creatinine 0.7, Estimat Glomerular Filtration Rate , Glucose Level 133H, Calcium Level 9.3, Total Bilirubin 0.6, Aspartate Amino Transf (AST/SGOT) 13L, Alanine Aminotransferase ( ALT/SGPT) 6L, Alkaline Phosphatase 92, Total Protein 5.9L, Albumin 2.2L, Globulin 3.7, Albumin/Globulin Ratio 0.6L Height (Feet): 5 Height (Inches): 2.00 Weight (Pounds): 120 Cardiovascular: normal rate Respiratory/Chest: lungs clear Simeon Mccallum MD Apr 16, 2018 13:36
--- NOTE | 2018-04-16 15:19 | Diagnostic Imaging Report ---
Indication: roasterman venous access Findings: After the indications, procedure, risks, complications, and alternatives of the procedure were explained, written informed consent was obtained. The right upper extremity was prepped with alcohol. All elements of maximal sterile barrier technique were followed including usage of a cap, mask, sterile gown, sterile gloves, hand hygiene and a large sterile sheet. Sonographic evaluation of the upper extremity was performed demonstrating a patent and compressible basilic vein. Access was obtained under real-time ultrasound guidance (with utilization of sterile gel and sterile probe cover) and digital image was saved and archived. An .018 wire was introduced. Needle exchanged for a 5 [place] peel-away sheath. Measurements were obtained. A 5 [place] dual-lumen Power PICC line catheter was cut to 30 cm and introduced over the wire. Peel-away sheath and wire were removed.Catheter was secured to the skin using 2-0 Prolene suture. Both ports aspirate and flush easily. Fluoroscopic images show distal tip in the superior vena cava. Total fluoroscopic time 0.2 minutes. Impression: Successful placement of an upper extremity PICC line catheter
[2018-04-16 15:44] VITALS: BP 129/79
[2018-04-16 20:00] VITALS: BP 154/74
--- NOTE | 2018-04-16 20:14 | Cardiology Progress Note ---
Assessment/Plan Assessment/Plan 1. Abdominal pain. 2. Nausea and vomiting. 3. Mitral regurgitation. 4. Hypertension. 5. Coronary disease, status post coronary artery bypass graft. 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 watch for dhf on ivf an increased so now on d5w has a picc line now watchin g na d/w dr yeager will give low dose lasix once but keep on d5w cxr in am d/w son Subjective Cardiovascular: Denies: chest pain Respiratory: Denies: shortness of breath Gastrointestinal/Abdominal: Denies: abdominal pain Genitourinary: Denies: burning Objective Last 24 Hour Vital Signs Date Time Temp Pulse Resp B/P (MAP) Pulse Ox O2 Delivery O2 Flow Rate FiO2 04/16/18 15:53 97.6 04/16/18 15:44 97.6 81 18 129/79 (96) 91 97.6 04/16/18 15:23 97.6 04/16/18 12:51 97.6 100 18 159/50 (86) 91 97.6 04/16/18 09:28 Room Air 04/16/18 08:10 97.6 80 18 160/94 (116) 91 97.6 04/16/18 04:00 97.6 93 18 139/94 (109) 91 97.6 04/16/18 00:00 97.3 57 18 145/81 (102) 94 97.3 04/15/18 20:25 Room Air General Appearance: alert Neck: supple Cardiovascular: normal rate, systolic murmur Respiratory/Chest: expiratory wheezing Abdomen: normal bowel sounds, non tender, soft, other - hernia Extremities: moderate edema - in nu dependent are of nu thigh Intake and Output 04/15/18 04/16/18 19:00 07:00 Intake Total 450 ml 542.5 ml Output Total 1530 ml 650 ml Balance -1080 ml -107.5 ml IV Total 450 ml 542.5 ml Output Urine Total 1400 ml 650 ml Gastric Drainage Total 130 ml # Bowel Movements 5 Laboratory Tests Test 04/16/18 11:05 Sodium Level 148 MMOL/L (136-145) H Potassium Level 3.7 MMOL/L (3.5-5.1) Chloride Level 113 MMOL/L (98-107) H Carbon Dioxide Level 24 MMOL/L (21-32) Anion Gap 11 mmol/L (5-15) Blood Urea Nitrogen 25 mg/dL (7-18) H Creatinine 0.7 MG/DL (0.55-1.30) Estimat Glomerular Filtration Rate mL/min (>60) Glucose Level 133 MG/DL (74-106) H Calcium Level 9.3 MG/DL (8.5-10.1) Total Bilirubin 0.6 MG/DL (0.2-1.0) Aspartate Amino Transf (AST/SGOT) 13 U/L (15-37) L Alanine Aminotransferase (ALT/SGPT) 6 U/L (12-78) L Alkaline Phosphatase 92 U/L (46-116) Total Protein 5.9 G/DL (6.4-8.2) L Albumin 2.2 G/DL (3.4-5.0) L Globulin 3.7 g/dL Albumin/Globulin Ratio 0.6 (1.0-2.7) L Teo Gross MD Apr 16, 2018 20:14
[2018-04-16] MEDS: Dyna-Hex 2% Top Sol 2oz TOPIC SCH (21:18)
--- NOTE | 2018-04-16 21:43 | General Progress Note ---
Assessment/Plan Assessment/Plan Assessment - recurrent N/V - suspect intermittent PSBO or gastric outlet obstruction - leukocytosis - Azotmia Recommendations - po diet as tolerated - follow symptoms Subjective Allergies: Coded Allergies: Dairy (Verified Allergy, Severe, GI UPSET, 11/19/08) Subjective No new complaints d/w son at bedside tolerating solids Objective Last 24 Hour Vital Signs Date Time Temp Pulse Resp B/P (MAP) Pulse Ox O2 Delivery O2 Flow Rate FiO2 04/16/18 15:53 97.6 04/16/18 15:44 97.6 81 18 129/79 (96) 91 97.6 04/16/18 15:23 97.6 04/16/18 12:51 97.6 100 18 159/50 (86) 91 97.6 04/16/18 09:28 Room Air 04/16/18 08:10 97.6 80 18 160/94 (116) 91 97.6 04/16/18 04:00 97.6 93 18 139/94 (109) 91 97.6 04/16/18 00:00 97.3 57 18 145/81 (102) 94 97.3 Intake and Output 04/15/18 04/16/18 19:00 07:00 Intake Total 450 ml 542.5 ml Output Total 1530 ml 650 ml Balance -1080 ml -107.5 ml IV Total 450 ml 542.5 ml Output Urine Total 1400 ml 650 ml Gastric Drainage Total 130 ml # Bowel Movements 5 Laboratory Tests 04/16/18 11:05: Sodium Level 148H, Potassium Level 3.7, Chloride Level 113H, Carbon Dioxide Level 24, Anion Gap 11, Blood Urea Nitrogen 25H, Creatinine 0.7, Estimat Glomerular Filtration Rate , Glucose Level 133H, Calcium Level 9.3, Total Bilirubin 0.6, Aspartate Amino Transf (AST/SGOT) 13L, Alanine Aminotransferase ( ALT/SGPT) 6L, Alkaline Phosphatase 92, Total Protein 5.9L, Albumin 2.2L, Globulin 3.7, Albumin/Globulin Ratio 0.6L Height (Feet): 5 Height (Inches): 2.00 Weight (Pounds): 120 Objective Thin WW NCAT supple CTA RRR soft abdomen, but distended diastasis defect no edema non focal Cecilio Hendricks MD Apr 16, 2018 21:43
[2018-04-17] VITALS (7 sets, daily range): BP systolic 132–153; BP diastolic 69–93
[2018-04-17] MEDS: Piperacillin/Tazobactam 3.375 GM in D5W 110 ML IVPB SCH ×2 (04:58→18:37)
[2018-04-17 06:44] LABS: HEMATOCRIT 28.3 % (37.0-47.0); MEAN CORPUSCULAR VOLUME 95 FL (80-99); PLATELET COUNT 212 K/UL (150-450); RED BLOOD COUNT 2.96 M/UL (4.20-5.40); RED CELL DISTRIBUTION WIDTH 14.6 % (11.6-14.8); WHITE BLOOD COUNT 14.6 K/UL (4.8-10.8)
[2018-04-17 06:48] LABS: ANION GAP 7 mmol/L (5-15); BLOOD UREA NITROGEN 18 mg/dL (7-18); CALCIUM 8.7 MG/DL (8.5-10.1); CARBON DIOXIDE 28 MMOL/L (21-32); CHLORIDE 111 MMOL/L (98-107); CREATININE 0.6 MG/DL (0.55-1.30); POTASSIUM 3.6 MMOL/L (3.5-5.1); SODIUM 146 MMOL/L (136-145)
[2018-04-17] MEDS: Pantoprazole Inj IV SCH (09:43)
[2018-04-17] MEDS: Lisinopril 10mg tab ORAL SCH (09:47)
--- NOTE | 2018-04-17 12:00 | General Surgery Progress Note ---
General Surgery-Progress Note Subjective Additional Comments tolerating clears. still distended. no pain. Objective Last 24 Hour Vital Signs Date Time Temp Pulse Resp B/P (MAP) Pulse Ox O2 Delivery O2 Flow Rate FiO2 04/17/18 10:13 Room Air 04/17/18 09:48 104 133/69 (90) 04/17/18 09:47 133/69 04/17/18 08:00 96.8 107 14 152/90 (110) 98 96.8 04/17/18 04:00 97.6 94 18 153/90 (111) 96 97.6 04/17/18 00:00 97.6 91 18 141/93 (109) 95 97.6 04/16/18 21:00 Room Air 04/16/18 20:00 98.2 96 18 154/74 (100) 95 98.2 04/16/18 15:53 97.6 04/16/18 15:44 97.6 81 18 129/79 (96) 91 97.6 04/16/18 15:23 97.6 04/16/18 12:51 97.6 100 18 159/50 (86) 91 97.6 I&O Intake and Output 04/16/18 04/17/18 19:00 07:00 Intake Total 450 ml 577.5 ml Output Total 425 ml 1200 ml Balance 25 ml -622.5 ml IV Total 450 ml 577.5 ml Output Urine Total 425 ml 1200 ml # Voids 1 # Bowel Movements 1 Drains: none Cardiovascular: RSR Respiratory: clear Abdomen: soft, distended, non-tender, present bowel sounds Extremities: no cyanosis, other Laboratory Tests Test 04/17/18 05:50 White Blood Count 14.6 K/UL (4.8-10.8) H Red Blood Count 2.96 M/UL (4.20-5.40) L Hemoglobin 9.0 G/DL (12.0-16.0) L Hematocrit 28.3 % (37.0-47.0) L Mean Corpuscular Volume 95 FL (80-99) Mean Corpuscular Hemoglobin 30.5 PG (27.0-31.0) Mean Corpuscular Hemoglobin Concent 32.0 G/DL (32.0-36.0) Red Cell Distribution Width 14.6 % (11.6-14.8) Platelet Count 212 K/UL (150-450) Mean Platelet Volume 6.2 FL (6.5-10.1) L Neutrophils (%) (Auto) % (45.0-75.0) Lymphocytes (%) (Auto) % (20.0-45.0) Monocytes (%) (Auto) % (1.0-10.0) Eosinophils (%) (Auto) % (0.0-3.0) Basophils (%) (Auto) % (0.0-2.0) Differential Total Cells Counted 100 Neutrophils % (Manual) 92 % (45-75) H Lymphocytes % (Manual) 6 % (20-45) L Monocytes % (Manual) 2 % (1-10) Eosinophils % (Manual) 0 % (0-3) Basophils % (Manual) 0 % (0-2) Band Neutrophils 0 % (0-8) Platelet Estimate Adequate Platelet Morphology Normal Acanthocytes 1+ Sodium Level 146 MMOL/L (136-145) H Potassium Level 3.6 MMOL/L (3.5-5.1) Chloride Level 111 MMOL/L (98-107) H Carbon Dioxide Level 28 MMOL/L (21-32) Anion Gap 7 mmol/L (5-15) Blood Urea Nitrogen 18 mg/dL (7-18) Creatinine 0.6 MG/DL (0.55-1.30) Estimat Glomerular Filtration Rate mL/min (>60) Glucose Level 111 MG/DL (74-106) H Calcium Level 8.7 MG/DL (8.5-10.1) Phosphorus Level 2.2 MG/DL (2.5-4.9) L Magnesium Level 1.3 MG/DL (1.8-2.4) L Plan Problems: (1) Intractable vomiting with nausea Assessment & Plan: Gastric distention Small bowel distention leukocytosis possible SBO vs internal hernia complex case. last admission had full work up for similar symptoms. gastric studies and test normal continues to have distention and inability to tolerate oral intake without n/v Plan for contrast GI study r/o obstruction. CT reviewed. need to ensure no distal obstruction. No obstruction noted. contrast into colon. likely enteritis possible psbo resolved. also UTI. small portion multiple meals recommended. must be in chair during diet. no diet in bed. IV fluids CT A/P with oral contrast only thank you. will follow with recs. Samuel Rogers Apr 17, 2018 12:00
--- NOTE | 2018-04-17 12:14 | Diagnostic Imaging Report ---
Indication: Dyspnea Comparison: 04/13/2018 A single view chest radiograph was obtained. Findings: There is evidence of worsening pulmonary edema with interstitial and alveolar opacities as well as a moderate right pleural effusion which may have increased. PICC line has been placed and the tip is projected over the SVC. Nasogastric tube was removed. IMPRESSION: Worsening CHF Moderate right pleural effusion
--- NOTE | 2018-04-17 13:57 | General Progress Note ---
Assessment/Plan Problem List: (1) SOPHIE (acute kidney injury) Assessment & Plan: better ICD Codes: N17.9 - Acute kidney failure, unspecified SNOMED: 66975734 (2) Vomiting Assessment & Plan: beeter ICD Codes: R11.10 - Vomiting, unspecified SNOMED: 787686424 (3) HTN (hypertension) ICD Codes: I10 - Essential (primary) hypertension SNOMED: 59093205 (4) UTI (urinary tract infection) Assessment & Plan: with E coli ICD Codes: N39.0 - Urinary tract infection, site not specified SNOMED: 47190715 (5) Hypernatremia ICD Codes: E87.0 - Hyperosmolality and hypernatremia SNOMED: 07608674 Assessment/Plan IVF D5W IV Abxs discussed with son and RN follow labs advance diet discussed with Dr Rogers Subjective Allergies: Coded Allergies: Dairy (Verified Allergy, Severe, GI UPSET, 11/19/08) Subjective eats some Objective Last 24 Hour Vital Signs Date Time Temp Pulse Resp B/P (MAP) Pulse Ox O2 Delivery O2 Flow Rate FiO2 04/17/18 10:13 Room Air 04/17/18 09:48 104 133/69 (90) 04/17/18 09:47 133/69 04/17/18 08:00 96.8 107 14 152/90 (110) 98 96.8 04/17/18 04:00 97.6 94 18 153/90 (111) 96 97.6 04/17/18 00:00 97.6 91 18 141/93 (109) 95 97.6 04/16/18 21:00 Room Air 04/16/18 20:00 98.2 96 18 154/74 (100) 95 98.2 04/16/18 15:53 97.6 04/16/18 15:44 97.6 81 18 129/79 (96) 91 97.6 04/16/18 15:23 97.6 Intake and Output 04/16/18 04/17/18 19:00 07:00 Intake Total 450 ml 577.5 ml Output Total 425 ml 1200 ml Balance 25 ml -622.5 ml IV Total 450 ml 577.5 ml Output Urine Total 425 ml 1200 ml # Voids 1 # Bowel Movements 1 Laboratory Tests 04/17/18 05:50: White Blood Count 14.6H, Red Blood Count 2.96L, Hemoglobin 9.0L, Hematocrit 28.3L, Mean Corpuscular Volume 95, Mean Corpuscular Hemoglobin 30.5, Mean Corpuscular Hemoglobin Concent 32.0, Red Cell Distribution Width 14.6, Platelet Count 212, Mean Platelet Volume 6.2L, Neutrophils (%) (Auto) , Lymphocytes (%) ( Auto) , Monocytes (%) (Auto) , Eosinophils (%) (Auto) , Basophils (%) (Auto) , Differential Total Cells Counted 100, Neutrophils % (Manual) 92H, Lymphocytes % (Manual) 6L, Monocytes % (Manual) 2, Eosinophils % (Manual) 0, Basophils % ( Manual) 0, Band Neutrophils 0, Platelet Estimate Adequate, Platelet Morphology Normal, Acanthocytes 1+, Sodium Level 146H, Potassium Level 3.6, Chloride Level 111H, Carbon Dioxide Level 28, Anion Gap 7, Blood Urea Nitrogen 18, Creatinine 0.6, Estimat Glomerular Filtration Rate , Glucose Level 111H, Calcium Level 8.7 , Phosphorus Level 2.2L, Magnesium Level 1.3L Height (Feet): 5 Height (Inches): 2.00 Weight (Pounds): 120 Cardiovascular: normal rate Respiratory/Chest: lungs clear Abdomen: soft Simeon Mccallum MD Apr 17, 2018 13:57
--- NOTE | 2018-04-17 15:52 | Diagnostic Imaging Report ---
Indication: Abdominal pain Technique: Continuous helical transaxial imaging of the abdomen and pelvis was obtained from the lung bases to the pubic symphysis. No intravenous contrast was administered. Coronal 2-D reformats were also obtained. Automatic Exposure Control was utilized. Total Dose length Product (DLP): 745.[address] Dose Index Volume (CTDIvol): 15.47 mGy Comparison: CT abdomen pelvis 04/12/2018 Findings: Large ventral hernia is again demonstrated containing part of the stomach, part of the colon as well as a small the distended small bowel. On the prior occasion, the small bowel associated with the hernia was much more dilated. This has improved although bowel still appears dilated. The transition point is not seen well but there are loops of small bowel distal to this segment that are normal caliber. There is contrast within distal small bowel and colon indicating the process is not obstructive. Nevertheless, there may be some impediment to transit of contrast through this dilated segment given the hernia. Consider intermittent process. There is narrowing of the stomach as it enters the hernia. There is a small amount of ascites present surrounding the liver and within the pelvis. Gallstones are again noted. There is significant limitation on this study due to the nonadministration of IV contrast. Moderate calcification of aorta demonstrated. Moderate bilateral pleural effusions are present. Cardiomegaly is present. Hiatal hernia noted. Sternotomy noted. Anasarca noted. Right total hip prosthesis demonstrated. Severe degenerative changes of the left hip, sacroiliac joints and spine noted. Previous examined demonstrated bilateral hydronephrosis and a distended urinary bladder. The hydronephrosis has resolved since a Sheffield catheter has been placed with a completely nondistended bladder noted currently. IMPRESSION: Large ventral hernia containing segment of small bowel, transverse colon, and much of the stomach. Previously demonstrated dilatation of proximal small bowel with a transition associated with the hernia has improved considerably but still present. When should consider the possibility of an intermittent partial bowel obstruction. At this time there is no evidence of obstruction as contrast is seen within distal small bowel and colon. Moderate bilateral pleural effusions with associated basilar atelectasis versus pneumonia. Interval resolution of hydronephrosis probably related to Sheffield catheter placement and decompression of the urinary bladder. Mild ascites Anasarca. Right total hip replacement Severe degenerative changes of the hips and spine. Moderate to severe atherosclerotic disease. Cardiomegaly. Limitations on this exam due to the nonadministration of intravenous contrast. The CT scanner at [facility] is accredited by the [employer] and the scans are performed using dose optimization techniques as appropriate to a performed exam including Automatic Exposure control.
--- NOTE | 2018-04-17 17:10 | Cardiology Progress Note ---
Assessment/Plan Assessment/Plan 1. Abdominal pain. 2. Nausea and vomiting. 3. Mitral regurgitation. 4. Hypertension. 5. Coronary disease, status post coronary artery bypass graft. 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 now has dhf on ivf d5w for hypernatremia has a picc line now ct personally reviewed cxr personally reviewed will need rmoe aggressive diuretic need mg supplement Subjective Cardiovascular: Denies: chest pain, lightheadedness, palpitations Respiratory: Denies: shortness of breath Gastrointestinal/Abdominal: Denies: abdominal pain Genitourinary: Denies: burning Objective Last 24 Hour Vital Signs Date Time Temp Pulse Resp B/P (MAP) Pulse Ox O2 Delivery O2 Flow Rate FiO2 04/17/18 16:22 97.8 86 18 147/88 (107) 94 97.8 04/17/18 12:00 98.6 101 16 132/77 (95) 92 98.6 04/17/18 10:13 Room Air 04/17/18 09:48 104 133/69 (90) 04/17/18 09:47 133/69 04/17/18 08:00 96.8 107 14 152/90 (110) 98 96.8 04/17/18 04:00 97.6 94 18 153/90 (111) 96 97.6 04/17/18 00:00 97.6 91 18 141/93 (109) 95 97.6 04/16/18 21:00 Room Air 04/16/18 20:00 98.2 96 18 154/74 (100) 95 98.2 General Appearance: no apparent distress, alert Neck: supple Cardiovascular: normal rate, systolic murmur Respiratory/Chest: decreased breath sounds Abdomen: normal bowel sounds, non tender Extremities: moderate edema Intake and Output 04/16/18 04/17/18 19:00 07:00 Intake Total 450 ml 577.5 ml Output Total 425 ml 1200 ml Balance 25 ml -622.5 ml IV Total 450 ml 577.5 ml Output Urine Total 425 ml 1200 ml # Voids 1 # Bowel Movements 1 Laboratory Tests Test 04/17/18 05:50 White Blood Count 14.6 K/UL (4.8-10.8) H Red Blood Count 2.96 M/UL (4.20-5.40) L Hemoglobin 9.0 G/DL (12.0-16.0) L Hematocrit 28.3 % (37.0-47.0) L Mean Corpuscular Volume 95 FL (80-99) Mean Corpuscular Hemoglobin 30.5 PG (27.0-31.0) Mean Corpuscular Hemoglobin Concent 32.0 G/DL (32.0-36.0) Red Cell Distribution Width 14.6 % (11.6-14.8) Platelet Count 212 K/UL (150-450) Mean Platelet Volume 6.2 FL (6.5-10.1) L Neutrophils (%) (Auto) % (45.0-75.0) Lymphocytes (%) (Auto) % (20.0-45.0) Monocytes (%) (Auto) % (1.0-10.0) Eosinophils (%) (Auto) % (0.0-3.0) Basophils (%) (Auto) % (0.0-2.0) Differential Total Cells Counted 100 Neutrophils % (Manual) 92 % (45-75) H Lymphocytes % (Manual) 6 % (20-45) L Monocytes % (Manual) 2 % (1-10) Eosinophils % (Manual) 0 % (0-3) Basophils % (Manual) 0 % (0-2) Band Neutrophils 0 % (0-8) Platelet Estimate Adequate Platelet Morphology Normal Acanthocytes 1+ Sodium Level 146 MMOL/L (136-145) H Potassium Level 3.6 MMOL/L (3.5-5.1) Chloride Level 111 MMOL/L (98-107) H Carbon Dioxide Level 28 MMOL/L (21-32) Anion Gap 7 mmol/L (5-15) Blood Urea Nitrogen 18 mg/dL (7-18) Creatinine 0.6 MG/DL (0.55-1.30) Estimat Glomerular Filtration Rate mL/min (>60) Glucose Level 111 MG/DL (74-106) H Calcium Level 8.7 MG/DL (8.5-10.1) Phosphorus Level 2.2 MG/DL (2.5-4.9) L Magnesium Level 1.3 MG/DL (1.8-2.4) L Teo Gross MD Apr 17, 2018 17:10
[2018-04-17] MEDS: Dyna-Hex 2% Top Sol 2oz TOPIC SCH (20:54)
--- NOTE | 2018-04-17 22:30 | Consultation ---
DATE OF CONSULTATION: 04/17/2018 INFECTIOUS DISEASE CONSULT CONSULTING PHYSICIAN: Emerson Mccallum M.D. PRIMARY ATTENDING PHYSICIAN: Simeon Mccallum M.D. REASON FOR CONSULT: UTI. HISTORY OF PRESENT ILLNESS: This is an 87-year-old female admitted on 04/11/2018 from a senior living facility because of nausea and vomiting. She was on Zofran before admission. She had a workup done including a CT scan of the abdomen and pelvis at the time of admission that showed small bowel obstruction. Also has distended bladder and hydronephrosis. Urine culture growing E. coli and has leukocytosis. PAST MEDICAL HISTORY: Significant for hypertension, ventral hernia, and coronary artery disease status post bypass. ALLERGIES: MEDICATIONS: Zinc, magnesium sulfate, lisinopril, heparin, Zosyn, levothyroxine, Tylenol, Protonix, morphine sulfate, Zofran, and temazepam. SOCIAL HISTORY: Currently lives in [facility]. Before lived with son. No history of alcohol, drug abuse, or smoking. REVIEW OF SYSTEMS: Currently, she has no nausea or vomiting. No shortness of breath. No coughing. No problem passing urine. No abdominal distention. PHYSICAL EXAMINATION: VITAL SIGNS: Temperature 96.8, pulse 104, and blood pressure 133/69. GENERAL APPEARANCE: No acute distress. Seems to be cachectic. HEAD AND NECK: [place] conjunctivae. HEART: S1 and S2 regular. LUNGS: Clear. No chest wall deformity. ABDOMEN: Has large ventral hernia in upper abdomen. Distended, has stretch prater. EXTREMITIES: No edema. LABORATORY AND DIAGNOSTIC DATA: WBC 14.6, hemoglobin 9, hematocrit 28.3, and platelets 212. Sodium 146, potassium 3.6, chloride 111, bicarbonate 28, BUN 18, and creatinine 0.6. Phosphorus 2.2, that is low. Magnesium is low. Albumin is 2.2. Urine culture grew E. coli. VRE screen was positive. CT scan of the abdomen and pelvis at the time of admission showed bilateral hydronephrosis and distended bladder, bilateral pleural effusions, prominent small bowel loops, ascending aortic aneurysm 4.2 cm, cholelithiasis without cholecystitis. IMPRESSION: Complicated urinary tract infection with Escherichia coli. The patient has bilateral hydronephrosis and acute renal failure at the time of admission, creatinine came back to normal from 1.7, likely partial small bowel obstruction, aortic aneurysm, coronary artery disease, anemia, persistent nausea and vomiting, hypothyroidism. RECOMMENDATION: We will continue with Zosyn. We will follow up the repeat CT scan of the abdomen and pelvis. At the end of my exam, I thank Dr. Mccallum for involving me in the care of this patient. Emerson Mccallum M.D. DR: WILTON JOB#: [id number] CC: KATHIE
--- NOTE | 2018-04-17 22:44 | General Progress Note ---
Assessment/Plan Assessment/Plan Assessment - recurrent N/V - suspect intermittent PSBO or gastric outlet obstruction - leukocytosis - Azotmia Recommendations - po diet as tolerated - follow symptoms Subjective Allergies: Coded Allergies: Dairy (Verified Allergy, Severe, GI UPSET, 11/19/08) Subjective No new complaints d/w son at bedside tolerating po Objective Last 24 Hour Vital Signs Date Time Temp Pulse Resp B/P (MAP) Pulse Ox O2 Delivery O2 Flow Rate FiO2 04/17/18 20:24 Room Air 04/17/18 20:00 97.7 94 17 148/81 (103) 94 97.7 04/17/18 16:22 97.8 86 18 147/88 (107) 94 97.8 04/17/18 12:00 98.6 101 16 132/77 (95) 92 98.6 04/17/18 10:13 Room Air 04/17/18 09:48 104 133/69 (90) 04/17/18 09:47 133/69 04/17/18 08:00 96.8 107 14 152/90 (110) 98 96.8 04/17/18 04:00 97.6 94 18 153/90 (111) 96 97.6 04/17/18 00:00 97.6 91 18 141/93 (109) 95 97.6 Intake and Output 04/16/18 04/17/18 19:00 07:00 Intake Total 450 ml 577.5 ml Output Total 425 ml 1200 ml Balance 25 ml -622.5 ml IV Total 450 ml 577.5 ml Output Urine Total 425 ml 1200 ml # Voids 1 # Bowel Movements 1 Laboratory Tests 04/17/18 05:50: White Blood Count 14.6H, Red Blood Count 2.96L, Hemoglobin 9.0L, Hematocrit 28.3L, Mean Corpuscular Volume 95, Mean Corpuscular Hemoglobin 30.5, Mean Corpuscular Hemoglobin Concent 32.0, Red Cell Distribution Width 14.6, Platelet Count 212, Mean Platelet Volume 6.2L, Neutrophils (%) (Auto) , Lymphocytes (%) ( Auto) , Monocytes (%) (Auto) , Eosinophils (%) (Auto) , Basophils (%) (Auto) , Differential Total Cells Counted 100, Neutrophils % (Manual) 92H, Lymphocytes % (Manual) 6L, Monocytes % (Manual) 2, Eosinophils % (Manual) 0, Basophils % ( Manual) 0, Band Neutrophils 0, Platelet Estimate Adequate, Platelet Morphology Normal, Acanthocytes 1+, Sodium Level 146H, Potassium Level 3.6, Chloride Level 111H, Carbon Dioxide Level 28, Anion Gap 7, Blood Urea Nitrogen 18, Creatinine 0.6, Estimat Glomerular Filtration Rate , Glucose Level 111H, Calcium Level 8.7 , Phosphorus Level 2.2L, Magnesium Level 1.3L Height (Feet): 5 Height (Inches): 2.00 Weight (Pounds): 120 Objective Thin WW NCAT supple CTA RRR soft abdomen, but distended diastasis defect no edema non focal Cecilio Hendricks MD Apr 17, 2018 22:44
[2018-04-18] VITALS: BP 149/82
[2018-04-18] MEDS: Piperacillin/Tazobactam 3.375 GM in D5W 110 ML IVPB SCH ×2 (03:49→16:18)
[2018-04-18 04:00] VITALS: BP 135/82
[2018-04-18 06:49] LABS: ALANINE AMINOTRANSFERASE < 6 U/L (12-78); ALBUMIN 1.8 G/DL (3.4-5.0); ALBUMIN/GLOBULIN RATIO 0.6 (1.0-2.7); ALKALINE PHOSPHATASE 75 U/L (46-116); ANION GAP 4 mmol/L (5-15); ASPARTATE AMINO TRANSFERASE 13 U/L (15-37); BILIRUBIN,TOTAL 0.3 MG/DL (0.2-1.0); BLOOD UREA NITROGEN 10 mg/dL (7-18); CALCIUM 8.3 MG/DL (8.5-10.1); CARBON DIOXIDE 37 MMOL/L (21-32); CHLORIDE 105 MMOL/L (98-107); CREATININE 0.5 MG/DL (0.55-1.30); SODIUM 144 MMOL/L (136-145)
[2018-04-18 06:53] LABS: POTASSIUM 2.7 MMOL/L (3.5-5.1)
--- NOTE | 2018-04-18 07:49 | Cardiology Progress Note ---
Assessment/Plan Assessment/Plan 1. Abdominal pain. 2. Nausea and vomiting. 3. Mitral regurgitation. 4. Hypertension. 5. Coronary disease, status post coronary artery bypass graft. 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 pleural effusion 9. electolyte abn now has dhf on ivf d5w for hypernatremia has a picc line now ct personally reviewed yest cxr personally reviewed yet will need rmore diuretic but after k correction need k supplement Subjective Cardiovascular: Denies: chest pain, lightheadedness, palpitations Respiratory: Reports: shortness of breath Gastrointestinal/Abdominal: Denies: abdomen distended Genitourinary: Denies: burning Objective Last 24 Hour Vital Signs Date Time Temp Pulse Resp B/P (MAP) Pulse Ox O2 Delivery O2 Flow Rate FiO2 04/18/18 04:00 98.0 90 19 135/82 (99) 98 98.0 04/18/18 00:00 98.1 94 18 149/82 (104) 99 98.1 04/17/18 20:24 Room Air 04/17/18 20:00 97.7 94 17 148/81 (103) 94 97.7 04/17/18 16:22 97.8 86 18 147/88 (107) 94 97.8 04/17/18 12:00 98.6 101 16 132/77 (95) 92 98.6 04/17/18 10:13 Room Air 04/17/18 09:48 104 133/69 (90) 04/17/18 09:47 133/69 04/17/18 08:00 96.8 107 14 152/90 (110) 98 96.8 General Appearance: alert Neck: supple Cardiovascular: normal rate, systolic murmur Respiratory/Chest: decreased breath sounds Abdomen: normal bowel sounds, non tender, soft Extremities: moderate edema Intake and Output 04/17/18 04/18/18 19:00 07:00 Intake Total 418 ml 590.0 ml Output Total 550 ml 2250 ml Balance -132 ml -1660.0 ml Intake Oral 118 ml 480 ml IV Total 300 ml 110.0 ml Output Urine Total 550 ml 2250 ml # Voids 2 # Bowel Movements 1 Laboratory Tests Test 04/18/18 05:25 Sodium Level 144 MMOL/L (136-145) Potassium Level 2.7 MMOL/L (3.5-5.1) *L Chloride Level 105 MMOL/L (98-107) Carbon Dioxide Level 37 MMOL/L (21-32) H Anion Gap 4 mmol/L (5-15) L Blood Urea Nitrogen 10 mg/dL (7-18) Creatinine 0.5 MG/DL (0.55-1.30) L Estimat Glomerular Filtration Rate mL/min (>60) Glucose Level 89 MG/DL (74-106) Calcium Level 8.3 MG/DL (8.5-10.1) L Total Bilirubin 0.3 MG/DL (0.2-1.0) Aspartate Amino Transf (AST/SGOT) 13 U/L (15-37) L Alanine Aminotransferase (ALT/SGPT) < 6 U/L (12-78) L Alkaline Phosphatase 75 U/L (46-116) Total Protein 4.9 G/DL (6.4-8.2) L Albumin 1.8 G/DL (3.4-5.0) L Globulin 3.1 g/dL Albumin/Globulin Ratio 0.6 (1.0-2.7) L Teo Gross MD Apr 18, 2018 07:49
[2018-04-18 08:00] VITALS: BP 132/81
[2018-04-18] MEDS: Pantoprazole Inj IV SCH (08:44)
[2018-04-18] MEDS: Lisinopril 10mg tab ORAL SCH (08:49)
--- NOTE | 2018-04-18 11:32 | Infectious Diseases Prog Note ---
Assessment/Plan Assessment/Plan antibiotics : zosyn A 1. e.coli UTI 2. hydronephrosis improving 3. pleural effusions 4. ventral hernia 5. hypertension P 1. d/c zosyn 2. start ceftriaxone 3. will follow up cultures Subjective ROS Limited/Unobtainable: Yes Allergies: Coded Allergies: Dairy (Verified Allergy, Severe, GI UPSET, 11/19/08) Objective Vital Signs Last 24 Hour Vital Signs Date Time Temp Pulse Resp B/P (MAP) Pulse Ox O2 Delivery O2 Flow Rate FiO2 04/18/18 09:08 Room Air 04/18/18 08:49 121/77 04/18/18 08:00 97.6 77 19 132/81 (98) 100 97.6 04/18/18 04:00 98.0 90 19 135/82 (99) 98 98.0 04/18/18 00:00 98.1 94 18 149/82 (104) 99 98.1 04/17/18 20:24 Room Air 04/17/18 20:00 97.7 94 17 148/81 (103) 94 97.7 04/17/18 16:22 97.8 86 18 147/88 (107) 94 97.8 04/17/18 12:00 98.6 101 16 132/77 (95) 92 98.6 Height (Feet): 5 Height (Inches): 2.00 Weight (Pounds): 120 Respiratory/Chest: lungs clear Cardiovascular: normal rate, regular rhythm, no gallop/murmur Abdomen: soft, non tender, distended Extremities: no edema Laboratory Tests Test 04/18/18 05:25 Sodium Level 144 MMOL/L (136-145) Potassium Level 2.7 MMOL/L (3.5-5.1) *L Chloride Level 105 MMOL/L (98-107) Carbon Dioxide Level 37 MMOL/L (21-32) H Anion Gap 4 mmol/L (5-15) L Blood Urea Nitrogen 10 mg/dL (7-18) Creatinine 0.5 MG/DL (0.55-1.30) L Estimat Glomerular Filtration Rate mL/min (>60) Glucose Level 89 MG/DL (74-106) Calcium Level 8.3 MG/DL (8.5-10.1) L Magnesium Level 1.7 MG/DL (1.8-2.4) L Total Bilirubin 0.3 MG/DL (0.2-1.0) Aspartate Amino Transf (AST/SGOT) 13 U/L (15-37) L Alanine Aminotransferase (ALT/SGPT) < 6 U/L (12-78) L Alkaline Phosphatase 75 U/L (46-116) Total Protein 4.9 G/DL (6.4-8.2) L Albumin 1.8 G/DL (3.4-5.0) L Globulin 3.1 g/dL Albumin/Globulin Ratio 0.6 (1.0-2.7) L Current Medications Medications (Trade) Dose Ordered Sig/Lainey Route PRN Reason Start Time Stop Time Status Last Admin Dose Admin Acetaminophen (Tylenol) 650 mg Q4H PRN RECTAL Mild Pain (Pain Scale 1-3) 04/12/18 12:00 05/12/18 11:59 Barium Sulfate (Readi-Cat 2) 450 ml NOW PRN ORAL Radiology Procedure 04/17/18 12:00 04/19/18 11:55 Chlorhexidine Gluconate (Madelaine-Hex 2%) 1 applic DAILY@2000 TOPIC 04/14/18 20:00 05/14/18 19:59 04/17/18 20:54 Dextrose 1,000 ml @ 50 mls/hr Q20H IV 04/16/18 13:38 05/16/18 13:37 04/18/18 03:49 Dextrose (Dextrose 50%) 25 ml Q30M PRN IV Hypoglycemia 04/12/18 00:00 05/12/18 00:00 Dextrose (Dextrose 50%) 50 ml Q30M PRN IV Hypoglycemia 04/12/18 00:00 05/12/18 00:00 Furosemide (Lasix) 20 mg Q24HRS IV 04/18/18 21:00 05/18/18 20:59 Levothyroxine Sodium (Synthroid) 25 mcg DAILY IV 04/15/18 09:00 05/13/18 08:59 04/18/18 10:50 Lisinopril (Zestril) 10 mg DAILY ORAL 04/17/18 09:00 05/17/18 08:59 04/18/18 08:49 Magnesium Hydroxide (Mom) 30 ml HSPRN PRN ORAL Constipation 04/12/18 00:00 05/12/18 00:00 Morphine Sulfate (Morphine Sulfate) 2 mg Q3H PRN IVP Moderate Pain (Pain Scale 4-6) 04/12/18 00:00 04/19/18 00:00 04/16/18 15:23 Morphine Sulfate (Morphine Sulfate) 4 mg Q3H PRN IVP Severe Pain (Pain Scale 7-10) 04/12/18 00:00 04/19/18 00:00 04/14/18 14:18 Ondansetron HCl (Zofran) 4 mg EVERY 4 HOURS PRN IVP Nausea & Vomiting 04/12/18 00:00 05/12/18 00:00 04/16/18 05:51 Pantoprazole (Protonix) 40 mg DAILY IV 04/12/18 09:00 05/12/18 08:59 04/18/18 08:44 Piperacillin Sod/ Tazobactam Sod 3.375 gm/Dextrose 110 ml @ 27.5 mls/hr Q12H IVPB 04/15/18 16:00 04/22/18 15:59 04/18/18 03:49 Potassium Chloride (K-Dur) 40 meq Q2H ORAL 04/18/18 08:15 04/18/18 12:16 04/18/18 10:50 Temazepam (Restoril) 15 mg HSPRN PRN ORAL Insomnia 04/12/18 00:00 04/19/18 00:00 Ritu Reed MD Apr 18, 2018 11:32
[2018-04-18 12:00] VITALS: BP 142/88
--- NOTE | 2018-04-18 14:34 | General Progress Note ---
Assessment/Plan Problem List: (1) SOPHIE (acute kidney injury) Assessment & Plan: better ICD Codes: N17.9 - Acute kidney failure, unspecified SNOMED: 27689099 (2) Vomiting Assessment & Plan: beeter ICD Codes: R11.10 - Vomiting, unspecified SNOMED: 395202182 (3) HTN (hypertension) ICD Codes: I10 - Essential (primary) hypertension SNOMED: 38539846 (4) UTI (urinary tract infection) Assessment & Plan: with E coli ICD Codes: N39.0 - Urinary tract infection, site not specified SNOMED: 17434871 (5) Hypernatremia ICD Codes: E87.0 - Hyperosmolality and hypernatremia SNOMED: 35011894 Assessment/Plan Diuresis IV Abxs discussed with son and RN follow labs Replete K and Mag discussed with Dr Gross Subjective Allergies: Coded Allergies: Dairy (Verified Allergy, Severe, GI UPSET, 11/19/08) Subjective eats better Objective Last 24 Hour Vital Signs Date Time Temp Pulse Resp B/P (MAP) Pulse Ox O2 Delivery O2 Flow Rate FiO2 04/18/18 12:00 97.5 92 19 142/88 (106) 100 97.5 04/18/18 09:08 Room Air 04/18/18 08:49 121/77 04/18/18 08:00 97.6 77 19 132/81 (98) 100 97.6 04/18/18 04:00 98.0 90 19 135/82 (99) 98 98.0 04/18/18 00:00 98.1 94 18 149/82 (104) 99 98.1 04/17/18 20:24 Room Air 04/17/18 20:00 97.7 94 17 148/81 (103) 94 97.7 04/17/18 16:22 97.8 86 18 147/88 (107) 94 97.8 Intake and Output 04/17/18 04/18/18 19:00 07:00 Intake Total 418 ml 590.0 ml Output Total 550 ml 2250 ml Balance -132 ml -1660.0 ml Intake Oral 118 ml 480 ml IV Total 300 ml 110.0 ml Output Urine Total 550 ml 2250 ml # Voids 2 # Bowel Movements 1 Laboratory Tests 04/18/18 05:25: Sodium Level 144, Potassium Level 2.7*L, Chloride Level 105, Carbon Dioxide Level 37H, Anion Gap 4L, Blood Urea Nitrogen 10, Creatinine 0.5L, Estimat Glomerular Filtration Rate , Glucose Level 89, Calcium Level 8.3L, Magnesium Level 1.7L, Total Bilirubin 0.3, Aspartate Amino Transf (AST/SGOT) 13L, Alanine Aminotransferase (ALT/SGPT) < 6L, Alkaline Phosphatase 75, Total Protein 4.9L, Albumin 1.8L, Globulin 3.1, Albumin/Globulin Ratio 0.6L Height (Feet): 5 Height (Inches): 2.00 Weight (Pounds): 120 Respiratory/Chest: lungs clear Edema: 1+ Generalized Simeon Mccallum MD Apr 18, 2018 14:34
--- NOTE | 2018-04-18 15:00 | General Surgery Progress Note ---
General Surgery-Progress Note Subjective Additional Comments labs noted. CT reviewed. cardiology note noted. tolerating diet. no n/v/f/c Objective Last 24 Hour Vital Signs Date Time Temp Pulse Resp B/P (MAP) Pulse Ox O2 Delivery O2 Flow Rate FiO2 04/18/18 12:00 97.5 92 19 142/88 (106) 100 97.5 04/18/18 09:08 Room Air 04/18/18 08:49 121/77 04/18/18 08:00 97.6 77 19 132/81 (98) 100 97.6 04/18/18 04:00 98.0 90 19 135/82 (99) 98 98.0 04/18/18 00:00 98.1 94 18 149/82 (104) 99 98.1 04/17/18 20:24 Room Air 04/17/18 20:00 97.7 94 17 148/81 (103) 94 97.7 04/17/18 16:22 97.8 86 18 147/88 (107) 94 97.8 I&O Intake and Output 04/17/18 04/18/18 19:00 07:00 Intake Total 418 ml 590.0 ml Output Total 550 ml 2250 ml Balance -132 ml -1660.0 ml Intake Oral 118 ml 480 ml IV Total 300 ml 110.0 ml Output Urine Total 550 ml 2250 ml # Voids 2 # Bowel Movements 1 Drains: none Cardiovascular: RSR Respiratory: clear Abdomen: soft, distended, non-tender, present bowel sounds Extremities: other Laboratory Tests Test 04/18/18 05:25 Sodium Level 144 MMOL/L (136-145) Potassium Level 2.7 MMOL/L (3.5-5.1) *L Chloride Level 105 MMOL/L (98-107) Carbon Dioxide Level 37 MMOL/L (21-32) H Anion Gap 4 mmol/L (5-15) L Blood Urea Nitrogen 10 mg/dL (7-18) Creatinine 0.5 MG/DL (0.55-1.30) L Estimat Glomerular Filtration Rate mL/min (>60) Glucose Level 89 MG/DL (74-106) Calcium Level 8.3 MG/DL (8.5-10.1) L Magnesium Level 1.7 MG/DL (1.8-2.4) L Total Bilirubin 0.3 MG/DL (0.2-1.0) Aspartate Amino Transf (AST/SGOT) 13 U/L (15-37) L Alanine Aminotransferase (ALT/SGPT) < 6 U/L (12-78) L Alkaline Phosphatase 75 U/L (46-116) Total Protein 4.9 G/DL (6.4-8.2) L Albumin 1.8 G/DL (3.4-5.0) L Globulin 3.1 g/dL Albumin/Globulin Ratio 0.6 (1.0-2.7) L Plan Problems: (1) Intractable vomiting with nausea Assessment & Plan: Gastric distention Small bowel distention leukocytosis possible SBO vs internal hernia complex case. last admission had full work up for similar symptoms. gastric studies and test normal continues to have distention and inability to tolerate oral intake without n/v Plan for contrast GI study r/o obstruction. CT reviewed. need to ensure no distal obstruction. No obstruction noted. contrast into colon. likely enteritis possible psbo resolved. also UTI. CT reviewed. no obstruction noted as compared to prior CT Cardiology note noted. replace electrolytes and diuresis small portion multiple meals recommended. must be in chair during diet. no diet in bed. thank you. will follow with recs. Samuel Rogers Apr 18, 2018 15:00
[2018-04-18 16:16] VITALS: BP 142/72
[2018-04-18 20:00] VITALS: BP 141/81
--- NOTE | 2018-04-18 20:32 | General Progress Note ---
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 etiology - Azotmia Recommendations - po diet as tolerated - follow symptoms - surgical f/u - check indium WBC scan Subjective Allergies: Coded Allergies: Dairy (Verified Allergy, Severe, GI UPSET, 11/19/08) Subjective No new complaints d/w son at bedside tolerating po Objective Last 24 Hour Vital Signs Date Time Temp Pulse Resp B/P (MAP) Pulse Ox O2 Delivery O2 Flow Rate FiO2 04/18/18 20:00 98.0 76 141/81 (101) 100 98.0 04/18/18 16:16 96.9 81 142/72 (95) 100 96.9 04/18/18 12:00 97.5 92 19 142/88 (106) 100 97.5 04/18/18 09:08 Room Air 04/18/18 08:49 121/77 04/18/18 08:00 97.6 77 19 132/81 (98) 100 97.6 04/18/18 04:00 98.0 90 19 135/82 (99) 98 98.0 04/18/18 00:00 98.1 94 18 149/82 (104) 99 98.1 Intake and Output 04/17/18 04/18/18 19:00 07:00 Intake Total 418 ml 590.0 ml Output Total 550 ml 2250 ml Balance -132 ml -1660.0 ml Intake Oral 118 ml 480 ml IV Total 300 ml 110.0 ml Output Urine Total 550 ml 2250 ml # Voids 2 # Bowel Movements 1 Laboratory Tests 04/18/18 05:25: Sodium Level 144, Potassium Level 2.7*L, Chloride Level 105, Carbon Dioxide Level 37H, Anion Gap 4L, Blood Urea Nitrogen 10, Creatinine 0.5L, Estimat Glomerular Filtration Rate , Glucose Level 89, Calcium Level 8.3L, Magnesium Level 1.7L, Total Bilirubin 0.3, Aspartate Amino Transf (AST/SGOT) 13L, Alanine Aminotransferase (ALT/SGPT) < 6L, Alkaline Phosphatase 75, Total Protein 4.9L, Albumin 1.8L, Globulin 3.1, Albumin/Globulin Ratio 0.6L Height (Feet): 5 Height (Inches): 2.00 Weight (Pounds): 120 Objective Thin WW NCAT supple CTA RRR soft abdomen, but distended diastasis defect no edema non focal Cecilio Hendricks MD Apr 18, 2018 20:32
[2018-04-18] MEDS: Dyna-Hex 2% Top Sol 2oz TOPIC SCH (20:51)
[2018-04-19] VITALS: BP 133/84
[2018-04-19] MEDS: Piperacillin/Tazobactam 3.375 GM in D5W 110 ML IVPB SCH ×2 (03:51→15:09)
[2018-04-19 04:00] VITALS: BP 133/67
[2018-04-19 06:09] LABS: ANION GAP 1 mmol/L (5-15); BLOOD UREA NITROGEN 9 mg/dL (7-18); CARBON DIOXIDE 37 MMOL/L (21-32); CHLORIDE 102 MMOL/L (98-107); CREATININE 0.6 MG/DL (0.55-1.30); POTASSIUM 4.4 MMOL/L (3.5-5.1); SODIUM 140 MMOL/L (136-145)
--- NOTE | 2018-04-19 07:36 | General Progress Note ---
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 etiology - Azotmia Recommendations - po diet - follow symptoms - surgical f/u - indium WBC scan pending Subjective ROS Limited/Unobtainable: Yes Allergies: Coded Allergies: Dairy (Verified Allergy, Severe, GI UPSET, 11/19/08) Subjective no recurrent vomiting Objective Last 24 Hour Vital Signs Date Time Temp Pulse Resp B/P (MAP) Pulse Ox O2 Delivery O2 Flow Rate FiO2 04/19/18 04:00 97.9 68 18 133/67 (89) 100 97.9 04/19/18 00:00 97.7 89 18 133/84 (100) 100 97.7 04/18/18 21:00 Room Air 04/18/18 20:00 98.0 76 19 141/81 (101) 100 98.0 04/18/18 16:16 96.9 81 142/72 (95) 100 96.9 04/18/18 12:00 97.5 92 19 142/88 (106) 100 97.5 04/18/18 09:08 Room Air 04/18/18 08:49 121/77 04/18/18 08:00 97.6 77 19 132/81 (98) 100 97.6 Intake and Output 04/18/18 04/19/18 19:00 07:00 Intake Total 782.5 ml 477.5 ml Output Total 2600 ml Balance 782.5 ml -2122.5 ml IV Total 282.5 ml 477.5 ml Other 500 ml Output Urine Total 2600 ml # Bowel Movements 4 Laboratory Tests 04/19/18 05:30: Sodium Level 140, Potassium Level 4.4#, Chloride Level 102, Carbon Dioxide Level 37H, Anion Gap 1L, Blood Urea Nitrogen 9, Creatinine 0.6, Estimat Glomerular Filtration Rate , Glucose Level 106, Calcium Level 8.0L, Magnesium Level 2.0 Height (Feet): 5 Height (Inches): 2.00 Weight (Pounds): 120 General Appearance: alert EENT: normal ENT inspection Neck: supple Cardiovascular: normal rate Respiratory/Chest: decreased breath sounds Abdomen: non tender, soft, hypoactive bowel sounds Extremities: non-tender Go Christianson MD Apr 19, 2018 07:36
[2018-04-19 08:00] VITALS: BP 129/69
[2018-04-19] MEDS: Pantoprazole Inj IV SCH (08:33)
[2018-04-19] MEDS: Lisinopril 10mg tab ORAL SCH (08:33)
--- NOTE | 2018-04-19 11:29 | Cardiology Progress Note ---
Assessment/Plan Assessment/Plan 1. Abdominal pain. 2. Nausea and vomiting. 3. Mitral regurgitation. 4. Hypertension. 5. Coronary disease, status post coronary artery bypass graft. 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 pleural effusion 9. electolyte abn imporoved but still present dhf on ivf d5w for hypernatremia has a picc line more diuretics tday k is better Subjective Cardiovascular: Denies: chest pain Respiratory: Denies: shortness of breath Gastrointestinal/Abdominal: Reports: abdominal pain Genitourinary: Denies: burning Objective Last 24 Hour Vital Signs Date Time Temp Pulse Resp B/P (MAP) Pulse Ox O2 Delivery O2 Flow Rate FiO2 04/19/18 09:00 Room Air 04/19/18 08:33 129/69 04/19/18 08:00 98.0 70 19 129/69 (89) 99 98.0 04/19/18 04:00 97.9 68 18 133/67 (89) 100 97.9 04/19/18 00:00 97.7 89 18 133/84 (100) 100 97.7 04/18/18 21:00 Room Air 04/18/18 20:00 98.0 76 19 141/81 (101) 100 98.0 04/18/18 16:16 96.9 81 142/72 (95) 100 96.9 04/18/18 12:00 97.5 92 19 142/88 (106) 100 97.5 General Appearance: alert Neck: supple Cardiovascular: normal rate, systolic murmur Respiratory/Chest: decreased breath sounds Abdomen: soft Extremities: moderate edema Intake and Output 04/18/18 04/19/18 19:00 07:00 Intake Total 782.5 ml 477.5 ml Output Total 2600 ml Balance 782.5 ml -2122.5 ml IV Total 282.5 ml 477.5 ml Other 500 ml Output Urine Total 2600 ml # Bowel Movements 4 Laboratory Tests Test 04/19/18 05:30 Sodium Level 140 MMOL/L (136-145) Potassium Level 4.4 MMOL/L (3.5-5.1) # Chloride Level 102 MMOL/L (98-107) Carbon Dioxide Level 37 MMOL/L (21-32) H Anion Gap 1 mmol/L (5-15) L Blood Urea Nitrogen 9 mg/dL (7-18) Creatinine 0.6 MG/DL (0.55-1.30) Estimat Glomerular Filtration Rate mL/min (>60) Glucose Level 106 MG/DL (74-106) Calcium Level 8.0 MG/DL (8.5-10.1) L Magnesium Level 2.0 MG/DL (1.8-2.4) Teo Gross MD Apr 19, 2018 11:29
[2018-04-19 12:00] VITALS: BP 130/71
--- NOTE | 2018-04-19 13:10 | General Surgery Progress Note ---
General Surgery-Progress Note Subjective Additional Comments no acute events. comfortable. looks well today Objective Last 24 Hour Vital Signs Date Time Temp Pulse Resp B/P (MAP) Pulse Ox O2 Delivery O2 Flow Rate FiO2 04/19/18 12:00 97.9 69 20 130/71 (90) 98 97.9 04/19/18 09:00 Room Air 04/19/18 08:33 129/69 04/19/18 08:00 98.0 70 19 129/69 (89) 99 98.0 04/19/18 04:00 97.9 68 18 133/67 (89) 100 97.9 04/19/18 00:00 97.7 89 18 133/84 (100) 100 97.7 04/18/18 21:00 Room Air 04/18/18 20:00 98.0 76 19 141/81 (101) 100 98.0 04/18/18 16:16 96.9 81 142/72 (95) 100 96.9 I&O Intake and Output 04/18/18 04/19/18 19:00 07:00 Intake Total 782.5 ml 477.5 ml Output Total 2600 ml Balance 782.5 ml -2122.5 ml IV Total 282.5 ml 477.5 ml Other 500 ml Output Urine Total 2600 ml # Bowel Movements 4 Cardiovascular: RSR Respiratory: clear Abdomen: soft, distended, non-tender, present bowel sounds Extremities: no cyanosis Laboratory Tests Test 04/19/18 05:30 Sodium Level 140 MMOL/L (136-145) Potassium Level 4.4 MMOL/L (3.5-5.1) # Chloride Level 102 MMOL/L (98-107) Carbon Dioxide Level 37 MMOL/L (21-32) H Anion Gap 1 mmol/L (5-15) L Blood Urea Nitrogen 9 mg/dL (7-18) Creatinine 0.6 MG/DL (0.55-1.30) Estimat Glomerular Filtration Rate mL/min (>60) Glucose Level 106 MG/DL (74-106) Calcium Level 8.0 MG/DL (8.5-10.1) L Magnesium Level 2.0 MG/DL (1.8-2.4) Plan Problems: (1) Intractable vomiting with nausea Assessment & Plan: Gastric distention Small bowel distention leukocytosis possible SBO vs internal hernia complex case. last admission had full work up for similar symptoms. gastric studies and test normal continues to have distention and inability to tolerate oral intake without n/v Plan for contrast GI study r/o obstruction. CT reviewed. need to ensure no distal obstruction. No obstruction noted. contrast into colon. likely enteritis possible psbo resolved. also UTI. CT reviewed. no obstruction noted as compared to prior CT Cardiology note noted. replace electrolytes and diuresis WBC scan pending small portion multiple meals recommended. must be in chair during diet. no diet in bed. thank you. will follow with recs. Samuel Rogers Apr 19, 2018 13:10
[2018-04-19 16:00] VITALS: BP 140/65
--- NOTE | 2018-04-19 16:06 | General Progress Note ---
Assessment/Plan Problem List: (1) SOPHIE (acute kidney injury) Assessment & Plan: better ICD Codes: N17.9 - Acute kidney failure, unspecified SNOMED: 10595129 (2) Vomiting Assessment & Plan: beeter ICD Codes: R11.10 - Vomiting, unspecified SNOMED: 512804164 (3) HTN (hypertension) ICD Codes: I10 - Essential (primary) hypertension SNOMED: 50925497 (4) UTI (urinary tract infection) Assessment & Plan: with E coli ICD Codes: N39.0 - Urinary tract infection, site not specified SNOMED: 67769195 (5) Hypernatremia ICD Codes: E87.0 - Hyperosmolality and hypernatremia SNOMED: 53867631 Assessment/Plan Diuresis IV Abxs discussed with son and RN follow labs GI F/U Subjective Allergies: Coded Allergies: Dairy (Verified Allergy, Severe, GI UPSET, 11/19/08) Subjective no vomiting diarrhea per son Objective Last 24 Hour Vital Signs Date Time Temp Pulse Resp B/P (MAP) Pulse Ox O2 Delivery O2 Flow Rate FiO2 04/19/18 12:00 97.9 69 20 130/71 (90) 98 97.9 04/19/18 09:00 Room Air 04/19/18 08:33 129/69 04/19/18 08:00 98.0 70 19 129/69 (89) 99 98.0 04/19/18 04:00 97.9 68 18 133/67 (89) 100 97.9 04/19/18 00:00 97.7 89 18 133/84 (100) 100 97.7 04/18/18 21:00 Room Air 04/18/18 20:00 98.0 76 19 141/81 (101) 100 98.0 04/18/18 16:16 96.9 81 142/72 (95) 100 96.9 Intake and Output 04/18/18 04/19/18 19:00 07:00 Intake Total 782.5 ml 477.5 ml Output Total 2600 ml Balance 782.5 ml -2122.5 ml IV Total 282.5 ml 477.5 ml Other 500 ml Output Urine Total 2600 ml # Bowel Movements 4 Laboratory Tests 04/19/18 05:30: Sodium Level 140, Potassium Level 4.4#, Chloride Level 102, Carbon Dioxide Level 37H, Anion Gap 1L, Blood Urea Nitrogen 9, Creatinine 0.6, Estimat Glomerular Filtration Rate , Glucose Level 106, Calcium Level 8.0L, Magnesium Level 2.0 Height (Feet): 5 Height (Inches): 2.00 Weight (Pounds): 120 Cardiovascular: normal rate Respiratory/Chest: lungs clear Edema: no edema noted Generalized Simeon Mccallum MD Apr 19, 2018 16:06
[2018-04-19 20:00] VITALS: BP 131/67
[2018-04-19] MEDS: Dyna-Hex 2% Top Sol 2oz TOPIC SCH (20:16)
[2018-04-20] VITALS (7 sets, daily range): BP systolic 111–162; BP diastolic 67–98
[2018-04-20] MEDS: cefTRIAXone 1gm/D5W 55ml IVPB SCH ×2 (06:01)
--- NOTE | 2018-04-20 07:50 | General Progress Note ---
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 etiology - Azotmia Recommendations - po diet - follow symptoms - surgical f/u - indium WBC scan pending Subjective ROS Limited/Unobtainable: No Allergies: Coded Allergies: Dairy (Verified Allergy, Severe, GI UPSET, 11/19/08) Subjective no recurrent vomiting Objective Last 24 Hour Vital Signs Date Time Temp Pulse Resp B/P (MAP) Pulse Ox O2 Delivery O2 Flow Rate FiO2 04/20/18 04:58 151/76 (101) 04/20/18 04:00 97.2 90 16 162/85 (110) 98 97.2 04/20/18 00:00 97.4 96 16 143/98 (113) 99 97.4 04/19/18 21:00 Room Air 04/19/18 20:00 97.9 55 18 131/67 (88) 99 97.9 04/19/18 16:00 98.0 84 20 140/65 (90) 99 98.0 04/19/18 12:00 97.9 69 20 130/71 (90) 98 97.9 04/19/18 09:00 Room Air 04/19/18 08:33 129/69 04/19/18 08:00 98.0 70 19 129/69 (89) 99 98.0 Intake and Output 04/19/18 04/20/18 19:00 07:00 Output Total 1200 ml 2300 ml Balance -1200 ml -2300 ml Output Urine Total 1200 ml 2300 ml # Bowel Movements 1 Laboratory Tests 04/20/18 06:15: White Blood Count [Pending], Red Blood Count [Pending], Hemoglobin [Pending], Hematocrit [Pending], Mean Corpuscular Volume [Pending], Mean Corpuscular Hemoglobin [Pending], Mean Corpuscular Hemoglobin Concent [Pending], Red Cell Distribution Width [Pending], Platelet Count [Pending], Mean Platelet Volume [ Pending], Neutrophils (%) (Auto) [Pending], Lymphocytes (%) (Auto) [Pending], Monocytes (%) (Auto) [Pending], Eosinophils (%) (Auto) [Pending], Basophils (%) (Auto) [Pending], Sodium Level [Pending], Potassium Level [Pending], Chloride Level [Pending], Carbon Dioxide Level [Pending], Blood Urea Nitrogen [Pending], Creatinine [Pending], Estimat Glomerular Filtration Rate [Pending], Glucose Level [Pending], Calcium Level [Pending], Total Bilirubin [Pending], Aspartate Amino Transf (AST/SGOT) [Pending], Alanine Aminotransferase (ALT/SGPT) [Pending] , Alkaline Phosphatase [Pending], Total Protein [Pending], Albumin [Pending], Globulin [Pending] Height (Feet): 5 Height (Inches): 2.00 Weight (Pounds): 120 General Appearance: no apparent distress EENT: normal ENT inspection Neck: supple Cardiovascular: normal rate Respiratory/Chest: decreased breath sounds Abdomen: normal bowel sounds, non tender, soft Extremities: non-tender Go Christianson MD Apr 20, 2018 07:50
[2018-04-20 08:03] LABS: BASOPHILS % (AUTO) 0.4 % (0.0-2.0); EOSINOPHILS % (AUTO) 1.3 % (0.0-3.0); HEMATOCRIT 26.6 % (37.0-47.0); HEMOGLOBIN 8.5 G/DL (12.0-16.0); LYMPHOCYTES % (AUTO) 11.1 % (20.0-45.0); MEAN CORPUSCULAR VOLUME 93 FL (80-99); MONOCYTES % (AUTO) 3.8 % (1.0-10.0); NEUTROPHILS % (AUTO) 83.6 % (45.0-75.0); PLATELET COUNT 174 K/UL (150-450); RED BLOOD COUNT 2.84 M/UL (4.20-5.40); RED CELL DISTRIBUTION WIDTH 14.1 % (11.6-14.8); WHITE BLOOD COUNT 11.8 K/UL (4.8-10.8)
[2018-04-20 08:17] LABS: ALANINE AMINOTRANSFERASE 12 U/L (12-78); ALBUMIN 1.8 G/DL (3.4-5.0); ALBUMIN/GLOBULIN RATIO 0.6 (1.0-2.7); ALKALINE PHOSPHATASE 73 U/L (46-116); ANION GAP 1 mmol/L (5-15); ASPARTATE AMINO TRANSFERASE 16 U/L (15-37); BILIRUBIN,TOTAL 0.2 MG/DL (0.2-1.0); BLOOD UREA NITROGEN 8 mg/dL (7-18); CALCIUM 8.2 MG/DL (8.5-10.1); CARBON DIOXIDE 38 MMOL/L (21-32); CHLORIDE 99 MMOL/L (98-107); CREATININE 0.6 MG/DL (0.55-1.30); POTASSIUM 3.8 MMOL/L (3.5-5.1); SODIUM 138 MMOL/L (136-145)
[2018-04-20] MEDS: Lisinopril 10mg tab ORAL SCH (09:07)
[2018-04-20] MEDS: Pantoprazole Inj IV SCH (09:08)
--- NOTE | 2018-04-20 11:44 | Cardiology Progress Note ---
Assessment/Plan Assessment/Plan 1. Abdominal pain. 2. Nausea and vomiting. 3. Mitral regurgitation. 4. Hypertension. 5. Coronary disease, status post coronary artery bypass graft. 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 pleural effusion 9. electolyte abn imporoved but still present dhf on ivf d5w for hypernatremia has a picc line more diuretics tday k is ok will repeat cxr resuem amiod and folate dc ivf Subjective Cardiovascular: Denies: chest pain, palpitations, syncope Respiratory: Reports: shortness of breath - on tow occsioasn once last ntie adn once this am had sob son increased the hob elelvation for a few min then went back down Gastrointestinal/Abdominal: Denies: abdominal pain Genitourinary: Denies: burning Objective Last 24 Hour Vital Signs Date Time Temp Pulse Resp B/P (MAP) Pulse Ox O2 Delivery O2 Flow Rate FiO2 04/20/18 09:07 125/67 04/20/18 09:00 Nasal Cannula 2.0 04/20/18 08:00 97.6 87 19 125/67 (86) 100 97.6 04/20/18 04:58 151/76 (101) 04/20/18 04:00 97.2 90 16 162/85 (110) 98 97.2 04/20/18 00:00 97.4 96 16 143/98 (113) 99 97.4 04/19/18 21:00 Room Air 04/19/18 20:00 97.9 55 18 131/67 (88) 99 97.9 04/19/18 16:00 98.0 84 20 140/65 (90) 99 98.0 04/19/18 12:00 97.9 69 20 130/71 (90) 98 97.9 General Appearance: no apparent distress, alert Neck: no JVD Cardiovascular: normal rate, systolic murmur Respiratory/Chest: decreased breath sounds Extremities: moderate edema Intake and Output 04/19/18 04/20/18 19:00 07:00 Output Total 1200 ml 2300 ml Balance -1200 ml -2300 ml Output Urine Total 1200 ml 2300 ml # Bowel Movements 1 Laboratory Tests Test 04/20/18 06:15 White Blood Count 11.8 K/UL (4.8-10.8) H Red Blood Count 2.84 M/UL (4.20-5.40) L Hemoglobin 8.5 G/DL (12.0-16.0) L Hematocrit 26.6 % (37.0-47.0) L Mean Corpuscular Volume 93 FL (80-99) Mean Corpuscular Hemoglobin 30.0 PG (27.0-31.0) Mean Corpuscular Hemoglobin Concent 32.1 G/DL (32.0-36.0) Red Cell Distribution Width 14.1 % (11.6-14.8) Platelet Count 174 K/UL (150-450) Mean Platelet Volume 7.2 FL (6.5-10.1) Neutrophils (%) (Auto) 83.6 % (45.0-75.0) H Lymphocytes (%) (Auto) 11.1 % (20.0-45.0) L Monocytes (%) (Auto) 3.8 % (1.0-10.0) Eosinophils (%) (Auto) 1.3 % (0.0-3.0) Basophils (%) (Auto) 0.4 % (0.0-2.0) Sodium Level 138 MMOL/L (136-145) Potassium Level 3.8 MMOL/L (3.5-5.1) Chloride Level 99 MMOL/L (98-107) Carbon Dioxide Level 38 MMOL/L (21-32) H Anion Gap 1 mmol/L (5-15) L Blood Urea Nitrogen 8 mg/dL (7-18) Creatinine 0.6 MG/DL (0.55-1.30) Estimat Glomerular Filtration Rate mL/min (>60) Glucose Level 86 MG/DL (74-106) Calcium Level 8.2 MG/DL (8.5-10.1) L Total Bilirubin 0.2 MG/DL (0.2-1.0) Aspartate Amino Transf (AST/SGOT) 16 U/L (15-37) Alanine Aminotransferase (ALT/SGPT) 12 U/L (12-78) Alkaline Phosphatase 73 U/L (46-116) Total Protein 4.9 G/DL (6.4-8.2) L Albumin 1.8 G/DL (3.4-5.0) L Globulin 3.1 g/dL Albumin/Globulin Ratio 0.6 (1.0-2.7) L Teo Gross MD Apr 20, 2018 11:44
--- NOTE | 2018-04-20 12:12 | General Surgery Progress Note ---
General Surgery-Progress Note Subjective Additional Comments no acute events. comfortable. no n/v/f/c. Objective Last 24 Hour Vital Signs Date Time Temp Pulse Resp B/P (MAP) Pulse Ox O2 Delivery O2 Flow Rate FiO2 04/20/18 09:07 125/67 04/20/18 09:00 Nasal Cannula 2.0 04/20/18 08:00 97.6 87 19 125/67 (86) 100 97.6 04/20/18 04:58 151/76 (101) 04/20/18 04:00 97.2 90 16 162/85 (110) 98 97.2 04/20/18 00:00 97.4 96 16 143/98 (113) 99 97.4 04/19/18 21:00 Room Air 04/19/18 20:00 97.9 55 18 131/67 (88) 99 97.9 04/19/18 16:00 98.0 84 20 140/65 (90) 99 98.0 I&O Intake and Output 04/19/18 04/20/18 19:00 07:00 Output Total 1200 ml 2300 ml Balance -1200 ml -2300 ml Output Urine Total 1200 ml 2300 ml # Bowel Movements 1 Drains: none Cardiovascular: RSR Respiratory: clear Abdomen: soft, distended, non-tender, present bowel sounds Extremities: no tenderness, no cyanosis Laboratory Tests Test 04/20/18 06:15 White Blood Count 11.8 K/UL (4.8-10.8) H Red Blood Count 2.84 M/UL (4.20-5.40) L Hemoglobin 8.5 G/DL (12.0-16.0) L Hematocrit 26.6 % (37.0-47.0) L Mean Corpuscular Volume 93 FL (80-99) Mean Corpuscular Hemoglobin 30.0 PG (27.0-31.0) Mean Corpuscular Hemoglobin Concent 32.1 G/DL (32.0-36.0) Red Cell Distribution Width 14.1 % (11.6-14.8) Platelet Count 174 K/UL (150-450) Mean Platelet Volume 7.2 FL (6.5-10.1) Neutrophils (%) (Auto) 83.6 % (45.0-75.0) H Lymphocytes (%) (Auto) 11.1 % (20.0-45.0) L Monocytes (%) (Auto) 3.8 % (1.0-10.0) Eosinophils (%) (Auto) 1.3 % (0.0-3.0) Basophils (%) (Auto) 0.4 % (0.0-2.0) Sodium Level 138 MMOL/L (136-145) Potassium Level 3.8 MMOL/L (3.5-5.1) Chloride Level 99 MMOL/L (98-107) Carbon Dioxide Level 38 MMOL/L (21-32) H Anion Gap 1 mmol/L (5-15) L Blood Urea Nitrogen 8 mg/dL (7-18) Creatinine 0.6 MG/DL (0.55-1.30) Estimat Glomerular Filtration Rate mL/min (>60) Glucose Level 86 MG/DL (74-106) Calcium Level 8.2 MG/DL (8.5-10.1) L Total Bilirubin 0.2 MG/DL (0.2-1.0) Aspartate Amino Transf (AST/SGOT) 16 U/L (15-37) Alanine Aminotransferase (ALT/SGPT) 12 U/L (12-78) Alkaline Phosphatase 73 U/L (46-116) Total Protein 4.9 G/DL (6.4-8.2) L Albumin 1.8 G/DL (3.4-5.0) L Globulin 3.1 g/dL Albumin/Globulin Ratio 0.6 (1.0-2.7) L Plan Problems: (1) Intractable vomiting with nausea Assessment & Plan: Gastric distention Small bowel distention leukocytosis possible SBO vs internal hernia complex case. last admission had full work up for similar symptoms. gastric studies and test normal continues to have distention and inability to tolerate oral intake without n/v Plan for contrast GI study r/o obstruction. CT reviewed. need to ensure no distal obstruction. No obstruction noted. contrast into colon. likely enteritis possible psbo resolved. also UTI. CT reviewed. no obstruction noted as compared to prior CT Cardiology note noted. WBC scan pending small portion multiple meals recommended. must be in chair during diet. no diet in bed. thank you. will follow with recs. Samuel Rogers Apr 20, 2018 12:12
--- NOTE | 2018-04-20 13:21 | General Progress Note ---
Assessment/Plan Problem List: (1) SOPHIE (acute kidney injury) Assessment & Plan: better ICD Codes: N17.9 - Acute kidney failure, unspecified SNOMED: 71806781 (2) Vomiting Assessment & Plan: beeter ICD Codes: R11.10 - Vomiting, unspecified SNOMED: 148691259 (3) HTN (hypertension) ICD Codes: I10 - Essential (primary) hypertension SNOMED: 09582124 (4) UTI (urinary tract infection) Assessment & Plan: with E coli ICD Codes: N39.0 - Urinary tract infection, site not specified SNOMED: 23679249 (5) Hypernatremia ICD Codes: E87.0 - Hyperosmolality and hypernatremia SNOMED: 70382050 Assessment/Plan Diuresis IV Abxs discussed with son and RN follow labs GI F/U Subjective Allergies: Coded Allergies: Dairy (Verified Allergy, Severe, GI UPSET, 11/19/08) Subjective feels ok Objective Last 24 Hour Vital Signs Date Time Temp Pulse Resp B/P (MAP) Pulse Ox O2 Delivery O2 Flow Rate FiO2 04/20/18 12:00 97.4 79 18 123/71 (88) 98 97.4 04/20/18 09:07 125/67 04/20/18 09:00 Nasal Cannula 2.0 04/20/18 08:00 97.6 87 19 125/67 (86) 100 97.6 04/20/18 04:58 151/76 (101) 04/20/18 04:00 97.2 90 16 162/85 (110) 98 97.2 04/20/18 00:00 97.4 96 16 143/98 (113) 99 97.4 04/19/18 21:00 Room Air 04/19/18 20:00 97.9 55 18 131/67 (88) 99 97.9 04/19/18 16:00 98.0 84 20 140/65 (90) 99 98.0 Intake and Output 04/19/18 04/20/18 19:00 07:00 Output Total 1200 ml 2300 ml Balance -1200 ml -2300 ml Output Urine Total 1200 ml 2300 ml # Bowel Movements 1 Laboratory Tests 04/20/18 06:15: White Blood Count 11.8H, Red Blood Count 2.84L, Hemoglobin 8.5L, Hematocrit 26.6L, Mean Corpuscular Volume 93, Mean Corpuscular Hemoglobin 30.0, Mean Corpuscular Hemoglobin Concent 32.1, Red Cell Distribution Width 14.1, Platelet Count 174, Mean Platelet Volume 7.2, Neutrophils (%) (Auto) 83.6H, Lymphocytes ( %) (Auto) 11.1L, Monocytes (%) (Auto) 3.8, Eosinophils (%) (Auto) 1.3, Basophils (%) (Auto) 0.4, Sodium Level 138, Potassium Level 3.8, Chloride Level 99, Carbon Dioxide Level 38H, Anion Gap 1L, Blood Urea Nitrogen 8, Creatinine 0.6, Estimat Glomerular Filtration Rate , Glucose Level 86, Calcium Level 8.2L, Total Bilirubin 0.2, Aspartate Amino Transf (AST/SGOT) 16, Alanine Aminotransferase (ALT/SGPT) 12, Alkaline Phosphatase 73, Total Protein 4.9L, Albumin 1.8L, Globulin 3.1, Albumin/Globulin Ratio 0.6L Height (Feet): 5 Height (Inches): 2.00 Weight (Pounds): 120 Cardiovascular: normal rate Respiratory/Chest: lungs clear Abdomen: non tender Simeon Mccallum MD Apr 20, 2018 13:21
--- NOTE | 2018-04-20 14:06 | Infectious Diseases Prog Note ---
Assessment/Plan Assessment/Plan A 1. E.coli UTI 2. hydronephrosis improving 3. 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 Continue ceftriaxone 2. At time of discharge PO Levaquin Subjective ROS Limited/Unobtainable: Yes Gastrointestinal/Abdominal: Reports: no symptoms Genitourinary: Reports: no symptoms Allergies: Coded Allergies: Dairy (Verified Allergy, Severe, GI UPSET, 11/19/08) Objective Vital Signs Last 24 Hour Vital Signs Date Time Temp Pulse Resp B/P (MAP) Pulse Ox O2 Delivery O2 Flow Rate FiO2 04/20/18 12:00 97.4 79 18 123/71 (88) 98 97.4 04/20/18 09:07 125/67 04/20/18 09:00 Nasal Cannula 2.0 04/20/18 08:00 97.6 87 19 125/67 (86) 100 97.6 04/20/18 04:58 151/76 (101) 04/20/18 04:00 97.2 90 16 162/85 (110) 98 97.2 04/20/18 00:00 97.4 96 16 143/98 (113) 99 97.4 04/19/18 21:00 Room Air 04/19/18 20:00 97.9 55 18 131/67 (88) 99 97.9 04/19/18 16:00 98.0 84 20 140/65 (90) 99 98.0 Height (Feet): 5 Height (Inches): 2.00 Weight (Pounds): 120 General Appearance: no acute distress HEENT: mucous membranes moist Respiratory/Chest: lungs clear Cardiovascular: normal rate, other - R arm PICC line Abdomen: soft, non tender Genitourinary: other - Sheffield catheter Extremities: no edema Neurologic/Psychiatric: alert, responsive Laboratory Tests Test 04/20/18 06:15 White Blood Count 11.8 K/UL (4.8-10.8) H Red Blood Count 2.84 M/UL (4.20-5.40) L Hemoglobin 8.5 G/DL (12.0-16.0) L Hematocrit 26.6 % (37.0-47.0) L Mean Corpuscular Volume 93 FL (80-99) Mean Corpuscular Hemoglobin 30.0 PG (27.0-31.0) Mean Corpuscular Hemoglobin Concent 32.1 G/DL (32.0-36.0) Red Cell Distribution Width 14.1 % (11.6-14.8) Platelet Count 174 K/UL (150-450) Mean Platelet Volume 7.2 FL (6.5-10.1) Neutrophils (%) (Auto) 83.6 % (45.0-75.0) H Lymphocytes (%) (Auto) 11.1 % (20.0-45.0) L Monocytes (%) (Auto) 3.8 % (1.0-10.0) Eosinophils (%) (Auto) 1.3 % (0.0-3.0) Basophils (%) (Auto) 0.4 % (0.0-2.0) Sodium Level 138 MMOL/L (136-145) Potassium Level 3.8 MMOL/L (3.5-5.1) Chloride Level 99 MMOL/L (98-107) Carbon Dioxide Level 38 MMOL/L (21-32) H Anion Gap 1 mmol/L (5-15) L Blood Urea Nitrogen 8 mg/dL (7-18) Creatinine 0.6 MG/DL (0.55-1.30) Estimat Glomerular Filtration Rate mL/min (>60) Glucose Level 86 MG/DL (74-106) Calcium Level 8.2 MG/DL (8.5-10.1) L Total Bilirubin 0.2 MG/DL (0.2-1.0) Aspartate Amino Transf (AST/SGOT) 16 U/L (15-37) Alanine Aminotransferase (ALT/SGPT) 12 U/L (12-78) Alkaline Phosphatase 73 U/L (46-116) Total Protein 4.9 G/DL (6.4-8.2) L Albumin 1.8 G/DL (3.4-5.0) L Globulin 3.1 g/dL Albumin/Globulin Ratio 0.6 (1.0-2.7) L Current Medications Medications (Trade) Dose Ordered Sig/Lainey Route PRN Reason Start Time Stop Time Status Last Admin Dose Admin Acetaminophen (Tylenol) 650 mg Q4H PRN RECTAL Mild Pain (Pain Scale 1-3) 04/12/18 12:00 05/12/18 11:59 Amiodarone HCl (Cordarone) 100 mg DAILY ORAL 04/21/18 09:00 05/21/18 08:59 Ceftriaxone Sodium 1 gm/ Dextrose 55 ml @ 110 mls/hr Q24H IVPB 04/20/18 06:00 04/27/18 05:59 04/20/18 06:01 Chlorhexidine Gluconate (Madelaine-Hex 2%) 1 applic DAILY@2000 TOPIC 04/14/18 20:00 05/14/18 19:59 04/19/18 20:16 Dextrose (Dextrose 50%) 25 ml Q30M PRN IV Hypoglycemia 04/12/18 00:00 05/12/18 00:00 Dextrose (Dextrose 50%) 50 ml Q30M PRN IV Hypoglycemia 04/12/18 00:00 05/12/18 00:00 Folic Acid (Folate) 1 mg DAILY ORAL 04/21/18 09:00 05/21/18 08:59 Furosemide (Lasix) 20 mg Q24HRS IV 04/18/18 21:00 05/18/18 20:59 04/19/18 20:16 Levothyroxine Sodium (Synthroid) 50 mcg DAILY@0630 ORAL 04/20/18 06:30 05/20/18 06:29 04/20/18 06:01 Lisinopril (Zestril) 10 mg DAILY ORAL 04/17/18 09:00 05/17/18 08:59 04/20/18 09:07 Magnesium Hydroxide (Mom) 30 ml HSPRN PRN ORAL Constipation 04/12/18 00:00 05/12/18 00:00 Ondansetron HCl (Zofran) 4 mg EVERY 4 HOURS PRN IVP Nausea & Vomiting 04/12/18 00:00 05/12/18 00:00 04/16/18 05:51 Pantoprazole (Protonix) 40 mg DAILY IV 04/12/18 09:00 05/12/18 08:59 04/20/18 09:08 Emerson Mccallum MD Apr 20, 2018 14:06
[2018-04-20] MEDS: Dyna-Hex 2% Top Sol 2oz TOPIC SCH (21:16)
[2018-04-21] VITALS (8 sets, daily range): BP systolic 90–138; BP diastolic 55–83
[2018-04-21] MEDS: cefTRIAXone 1gm/D5W 55ml IVPB SCH ×2 (06:08)
[2018-04-21 07:00] LABS: BASOPHILS % (AUTO) 0.5 % (0.0-2.0); BLOOD UREA NITROGEN 7 mg/dL (7-18); CALCIUM 8.7 MG/DL (8.5-10.1); CHLORIDE 98 MMOL/L (98-107); CREATININE 0.6 MG/DL (0.55-1.30); EOSINOPHILS % (AUTO) 0.8 % (0.0-3.0); HEMATOCRIT 25.3 % (37.0-47.0); HEMOGLOBIN 8.3 G/DL (12.0-16.0); MEAN CORPUSCULAR VOLUME 94 FL (80-99); MONOCYTES % (AUTO) 3.7 % (1.0-10.0); PLATELET COUNT 178 K/UL (150-450); POTASSIUM 3.7 MMOL/L (3.5-5.1); RED BLOOD COUNT 2.71 M/UL (4.20-5.40); RED CELL DISTRIBUTION WIDTH 14.2 % (11.6-14.8); SODIUM 139 MMOL/L (136-145); WHITE BLOOD COUNT 11.8 K/UL (4.8-10.8)
[2018-04-21 07:02] LABS: CARBON DIOXIDE 43 MMOL/L (21-32)
[2018-04-21] MEDS: Pantoprazole Inj IV SCH (10:01)
[2018-04-21] MEDS: Amiodarone 200mg tab ORAL SCH (10:02)
[2018-04-21] MEDS: Lisinopril 10mg tab ORAL SCH (10:05)
--- NOTE | 2018-04-21 11:25 | Diagnostic Imaging Report ---
Indication: Dyspnea Comparison: 04/17/2018 A single view chest radiograph was obtained. Findings: Interstitial edema demonstrated with cardiomegaly. Sternotomy noted. PICC line is present. The tip is projected over the SVC. The bones are osteopenic. There is a right pleural effusion against noted. There are cysts suspicion of a nodular density in the right midlung. This could be loculated pleural fluid. However a parenchymal nodule or mass not excluded. Suggest follow-up CT with contrast or follow-up plain x-ray. IMPRESSION: Similar findings to the prior examination. Pulmonary edema and suspected right pleural effusion. Nodular focus now apparent within the right midlung. This is most likely loculated focus of pleural fluid although underlying mass is not excludable. Follow-up contrast CT suggested.
--- NOTE | 2018-04-21 12:43 | General Progress Note ---
Assessment/Plan Problem List: (1) SOPHIE (acute kidney injury) Assessment & Plan: better ICD Codes: N17.9 - Acute kidney failure, unspecified SNOMED: 74777945 (2) Vomiting Assessment & Plan: beeter ICD Codes: R11.10 - Vomiting, unspecified SNOMED: 731268733 (3) HTN (hypertension) ICD Codes: I10 - Essential (primary) hypertension SNOMED: 76748322 (4) UTI (urinary tract infection) Assessment & Plan: with E coli ICD Codes: N39.0 - Urinary tract infection, site not specified SNOMED: 28422884 (5) Hypernatremia ICD Codes: E87.0 - Hyperosmolality and hypernatremia SNOMED: 29715167 Assessment/Plan Diuresis IV Abxs discussed with son and RN follow labs GI F/U Subjective Allergies: Coded Allergies: Dairy (Verified Allergy, Severe, GI UPSET, 11/19/08) Subjective feels ok Objective Last 24 Hour Vital Signs Date Time Temp Pulse Resp B/P (MAP) Pulse Ox O2 Delivery O2 Flow Rate FiO2 04/21/18 10:18 Room Air 04/21/18 10:05 120/83 04/21/18 09:55 99 120/83 (95) 04/21/18 08:00 97.7 100 20 90/59 (69) 96 97.7 04/21/18 04:00 97.4 92 18 117/74 (88) 96 97.4 04/21/18 00:00 97.7 95 18 138/70 (92) 100 97.7 04/20/18 21:00 Nasal Cannula 2.0 04/20/18 20:00 98.0 63 18 121/70 (87) 100 98.0 04/20/18 16:00 97.8 78 18 111/69 (83) 98 97.8 Intake and Output 04/20/18 04/21/18 19:00 07:00 Output Total 600 ml 900 ml Balance -600 ml -900 ml Output Urine Total 600 ml 900 ml Laboratory Tests 04/20/18 16:08: Magnesium Level 1.7L 04/21/18 05:49: White Blood Count 11.8H, Red Blood Count 2.71L, Hemoglobin 8.3L, Hematocrit 25.3L, Mean Corpuscular Volume 94, Mean Corpuscular Hemoglobin 30.9, Mean Corpuscular Hemoglobin Concent 33.0, Red Cell Distribution Width 14.2, Platelet Count 178, Mean Platelet Volume 7.6, Neutrophils (%) (Auto) 84.0H, Lymphocytes ( %) (Auto) 11.0L, Monocytes (%) (Auto) 3.7, Eosinophils (%) (Auto) 0.8, Basophils (%) (Auto) 0.5, Erythrocyte Sedimentation Rate 30, Sodium Level 139, Potassium Level 3.7, Chloride Level 98, Carbon Dioxide Level 43*H, Blood Urea Nitrogen 7, Creatinine 0.6, Estimat Glomerular Filtration Rate , Glucose Level 80, Calcium Level 8.7, C-Reactive Protein, Quantitative 3.7H Height (Feet): 5 Height (Inches): 2.00 Weight (Pounds): 120 Cardiovascular: normal rate Respiratory/Chest: lungs clear Edema: no edema noted Generalized Simeon Mccallum MD Apr 21, 2018 12:43
--- NOTE | 2018-04-21 13:59 | Infectious Diseases Prog Note ---
Assessment/Plan Assessment/Plan A 1. E.coli UTI 2. hydronephrosis improving 3. 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 Continue ceftriaxone 2. At time of discharge PO Levaquin Subjective ROS Limited/Unobtainable: Yes Respiratory: Reports: no symptoms Cardiovascular: Reports: no symptoms Gastrointestinal/Abdominal: Reports: no symptoms Genitourinary: Reports: no symptoms Allergies: Coded Allergies: Dairy (Verified Allergy, Severe, GI UPSET, 11/19/08) Objective Vital Signs Last 24 Hour Vital Signs Date Time Temp Pulse Resp B/P (MAP) Pulse Ox O2 Delivery O2 Flow Rate FiO2 04/21/18 10:18 Room Air 04/21/18 10:05 120/83 04/21/18 09:55 99 120/83 (95) 04/21/18 08:00 97.7 100 20 90/59 (69) 96 97.7 04/21/18 04:00 97.4 92 18 117/74 (88) 96 97.4 04/21/18 00:00 97.7 95 18 138/70 (92) 100 97.7 04/20/18 21:00 Nasal Cannula 2.0 04/20/18 20:00 98.0 63 18 121/70 (87) 100 98.0 04/20/18 16:00 97.8 78 18 111/69 (83) 98 97.8 Height (Feet): 5 Height (Inches): 2.00 Weight (Pounds): 120 General Appearance: no acute distress HEENT: mucous membranes moist Respiratory/Chest: lungs clear, other - kyphosis Cardiovascular: tachycardia Abdomen: soft, non tender Extremities: no edema Neurologic/Psychiatric: alert, responsive Musculoskeletal: other - knee arthitis Laboratory Tests Test 04/20/18 16:08 04/21/18 05:49 Magnesium Level 1.7 MG/DL (1.8-2.4) L White Blood Count 11.8 K/UL (4.8-10.8) H Red Blood Count 2.71 M/UL (4.20-5.40) L Hemoglobin 8.3 G/DL (12.0-16.0) L Hematocrit 25.3 % (37.0-47.0) L Mean Corpuscular Volume 94 FL (80-99) Mean Corpuscular Hemoglobin 30.9 PG (27.0-31.0) Mean Corpuscular Hemoglobin Concent 33.0 G/DL (32.0-36.0) Red Cell Distribution Width 14.2 % (11.6-14.8) Platelet Count 178 K/UL (150-450) Mean Platelet Volume 7.6 FL (6.5-10.1) Neutrophils (%) (Auto) 84.0 % (45.0-75.0) H Lymphocytes (%) (Auto) 11.0 % (20.0-45.0) L Monocytes (%) (Auto) 3.7 % (1.0-10.0) Eosinophils (%) (Auto) 0.8 % (0.0-3.0) Basophils (%) (Auto) 0.5 % (0.0-2.0) Erythrocyte Sedimentation Rate 30 MM/HR (0-30) Sodium Level 139 MMOL/L (136-145) Potassium Level 3.7 MMOL/L (3.5-5.1) Chloride Level 98 MMOL/L (98-107) Carbon Dioxide Level 43 MMOL/L (21-32) *H Blood Urea Nitrogen 7 mg/dL (7-18) Creatinine 0.6 MG/DL (0.55-1.30) Estimat Glomerular Filtration Rate mL/min (>60) Glucose Level 80 MG/DL (74-106) Calcium Level 8.7 MG/DL (8.5-10.1) C-Reactive Protein, Quantitative 3.7 mg/dL (0.00-0.90) H Current Medications Medications (Trade) Dose Ordered Sig/Lainey Route PRN Reason Start Time Stop Time Status Last Admin Dose Admin Acetaminophen (Tylenol) 650 mg Q4H PRN RECTAL Mild Pain (Pain Scale 1-3) 04/12/18 12:00 05/12/18 11:59 Amiodarone HCl (Cordarone) 100 mg DAILY ORAL 04/21/18 09:00 05/21/18 08:59 04/21/18 10:02 Ceftriaxone Sodium 1 gm/ Dextrose 55 ml @ 110 mls/hr Q24H IVPB 04/20/18 06:00 04/27/18 05:59 04/21/18 06:08 Chlorhexidine Gluconate (Madelaine-Hex 2%) 1 applic DAILY@2000 TOPIC 04/14/18 20:00 05/14/18 19:59 04/20/18 21:16 Dextrose (Dextrose 50%) 25 ml Q30M PRN IV Hypoglycemia 04/12/18 00:00 05/12/18 00:00 Dextrose (Dextrose 50%) 50 ml Q30M PRN IV Hypoglycemia 04/12/18 00:00 05/12/18 00:00 Folic Acid (Folate) 1 mg DAILY ORAL 04/21/18 09:00 05/21/18 08:59 04/21/18 10:02 Furosemide (Lasix) 20 mg Q24HRS IV 04/18/18 21:00 05/18/18 20:59 04/20/18 21:17 Levothyroxine Sodium (Synthroid) 50 mcg DAILY@0630 ORAL 04/20/18 06:30 05/20/18 06:29 04/21/18 06:02 Lisinopril (Zestril) 10 mg DAILY ORAL 04/17/18 09:00 05/17/18 08:59 04/21/18 10:05 Magnesium Hydroxide (Mom) 30 ml HSPRN PRN ORAL Constipation 04/12/18 00:00 05/12/18 00:00 Ondansetron HCl (Zofran) 4 mg EVERY 4 HOURS PRN IVP Nausea & Vomiting 04/12/18 00:00 05/12/18 00:00 04/16/18 05:51 Pantoprazole (Protonix) 40 mg DAILY IV 04/12/18 09:00 05/12/18 08:59 04/21/18 10:01 Emerson Mccallum MD Apr 21, 2018 13:58
[2018-04-21] MEDS: Dyna-Hex 2% Top Sol 2oz TOPIC SCH (20:47)
--- NOTE | 2018-04-21 22:39 | General Progress Note ---
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 etiology - Azotmia - rising bicarb level Recommendations - po diet as tolerated - follow symptoms - surgical f/u - check indium WBC scan - ABG Subjective Allergies: Coded Allergies: Dairy (Verified Allergy, Severe, GI UPSET, 11/19/08) Subjective No new complaints d/w son at bedside tolerating po getting WBC scan today Objective Last 24 Hour Vital Signs Date Time Temp Pulse Resp B/P (MAP) Pulse Ox O2 Delivery O2 Flow Rate FiO2 04/21/18 21:39 70 118/63 (81) 04/21/18 21:00 Room Air 04/21/18 20:00 97.9 62 18 103/55 (71) 99 97.9 04/21/18 16:09 96.8 76 17 113/69 (84) 98 96.8 04/21/18 12:00 97.4 74 16 97/57 (70) 96 97.4 04/21/18 10:18 Room Air 04/21/18 10:05 120/83 04/21/18 09:55 99 120/83 (95) 04/21/18 08:00 97.7 100 20 90/59 (69) 96 97.7 04/21/18 04:00 97.4 92 18 117/74 (88) 96 97.4 04/21/18 00:00 97.7 95 18 138/70 (92) 100 97.7 Intake and Output 04/20/18 04/21/18 19:00 07:00 Output Total 600 ml 900 ml Balance -600 ml -900 ml Output Urine Total 600 ml 900 ml Laboratory Tests 04/21/18 05:49: White Blood Count 11.8H, Red Blood Count 2.71L, Hemoglobin 8.3L, Hematocrit 25.3L, Mean Corpuscular Volume 94, Mean Corpuscular Hemoglobin 30.9, Mean Corpuscular Hemoglobin Concent 33.0, Red Cell Distribution Width 14.2, Platelet Count 178, Mean Platelet Volume 7.6, Neutrophils (%) (Auto) 84.0H, Lymphocytes ( %) (Auto) 11.0L, Monocytes (%) (Auto) 3.7, Eosinophils (%) (Auto) 0.8, Basophils (%) (Auto) 0.5, Erythrocyte Sedimentation Rate 30, Sodium Level 139, Potassium Level 3.7, Chloride Level 98, Carbon Dioxide Level 43*H, Blood Urea Nitrogen 7, Creatinine 0.6, Estimat Glomerular Filtration Rate , Glucose Level 80, Calcium Level 8.7, C-Reactive Protein, Quantitative 3.7H Height (Feet): 5 Height (Inches): 2.00 Weight (Pounds): 120 Objective Thin WW NCAT supple CTA RRR soft abdomen, but distended diastasis defect no edema non focal Cecilio Hendricks MD Apr 21, 2018 22:39
[2018-04-22] VITALS: BP 115/71
[2018-04-22 04:00] VITALS: BP 136/88
[2018-04-22] MEDS: cefTRIAXone 1gm/D5W 55ml IVPB SCH ×2 (05:56)
[2018-04-22 07:18] LABS: HEMATOCRIT 25.4 % (37.0-47.0); MEAN CORPUSCULAR VOLUME 93 FL (80-99); PLATELET COUNT 182 K/UL (150-450); RED BLOOD COUNT 2.72 M/UL (4.20-5.40); RED CELL DISTRIBUTION WIDTH 14.1 % (11.6-14.8); WHITE BLOOD COUNT 11.5 K/UL (4.8-10.8)
[2018-04-22 07:39] LABS: ALANINE AMINOTRANSFERASE 14 U/L (12-78); ALBUMIN 1.9 G/DL (3.4-5.0); ALBUMIN/GLOBULIN RATIO 0.6 (1.0-2.7); ALKALINE PHOSPHATASE 78 U/L (46-116); ASPARTATE AMINO TRANSFERASE 17 U/L (15-37); BILIRUBIN,TOTAL 0.2 MG/DL (0.2-1.0); BLOOD UREA NITROGEN 14 mg/dL (7-18); CALCIUM 8.6 MG/DL (8.5-10.1); CARBON DIOXIDE 40 MMOL/L (21-32); CHLORIDE 99 MMOL/L (98-107); CREATININE 0.6 MG/DL (0.55-1.30); POTASSIUM 3.7 MMOL/L (3.5-5.1); SODIUM 138 MMOL/L (136-145)
[2018-04-22 08:14] VITALS: BP 117/68
[2018-04-22] MEDS: Pantoprazole Inj IV SCH (10:30)
[2018-04-22 10:31] VITALS: BP 129/70
[2018-04-22] MEDS: Amiodarone 200mg tab ORAL SCH (10:31)
[2018-04-22] MEDS: Lisinopril 10mg tab ORAL SCH (10:31)
[2018-04-22 11:58] VITALS: BP 99/56
--- NOTE | 2018-04-22 12:43 | Infectious Diseases Prog Note ---
Assessment/Plan Assessment/Plan A 1. E.coli UTI 2. hydronephrosis improving 3. 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 Continue ceftriaxone in hospital Subjective ROS Limited/Unobtainable: Yes Allergies: Coded Allergies: Dairy (Verified Allergy, Severe, GI UPSET, 11/19/08) Objective Vital Signs Last 24 Hour Vital Signs Date Time Temp Pulse Resp B/P (MAP) Pulse Ox O2 Delivery O2 Flow Rate FiO2 04/22/18 11:58 98.2 68 17 99/56 (70) 93 98.2 04/22/18 10:31 129/70 04/22/18 10:31 82 129/70 (89) 04/22/18 09:00 Room Air 04/22/18 08:14 97.9 73 16 117/68 (84) 100 97.9 04/22/18 04:00 97.6 87 136/88 (104) 97.6 04/22/18 00:00 97.7 63 115/71 (86) 97.7 04/21/18 21:39 70 118/63 (81) 04/21/18 21:00 Room Air 04/21/18 20:00 97.9 62 18 103/55 (71) 99 97.9 04/21/18 16:09 96.8 76 17 113/69 (84) 98 96.8 Height (Feet): 5 Height (Inches): 2.00 Weight (Pounds): 120 General Appearance: no acute distress HEENT: mucous membranes moist Respiratory/Chest: lungs clear Cardiovascular: normal rate Abdomen: soft, non tender Extremities: no edema Neurologic/Psychiatric: other - sleeping Musculoskeletal: other - kyphosis Laboratory Tests Test 04/22/18 05:45 04/22/18 07:30 White Blood Count 11.5 K/UL (4.8-10.8) H Red Blood Count 2.72 M/UL (4.20-5.40) L Hemoglobin 8.0 G/DL (12.0-16.0) L Hematocrit 25.4 % (37.0-47.0) L Mean Corpuscular Volume 93 FL (80-99) Mean Corpuscular Hemoglobin 29.6 PG (27.0-31.0) Mean Corpuscular Hemoglobin Concent 31.6 G/DL (32.0-36.0) L Red Cell Distribution Width 14.1 % (11.6-14.8) Platelet Count 182 K/UL (150-450) Mean Platelet Volume 8.2 FL (6.5-10.1) Neutrophils (%) (Auto) % (45.0-75.0) Lymphocytes (%) (Auto) % (20.0-45.0) Monocytes (%) (Auto) % (1.0-10.0) Eosinophils (%) (Auto) % (0.0-3.0) Basophils (%) (Auto) % (0.0-2.0) Differential Total Cells Counted 100 Neutrophils % (Manual) 89 % (45-75) H Lymphocytes % (Manual) 9 % (20-45) L Monocytes % (Manual) 1 % (1-10) Eosinophils % (Manual) 0 % (0-3) Basophils % (Manual) 1 % (0-2) Band Neutrophils 0 % (0-8) Platelet Estimate Adequate Platelet Morphology Normal Hypochromasia 2+ Anisocytosis 1+ Sodium Level 138 MMOL/L (136-145) Potassium Level 3.7 MMOL/L (3.5-5.1) Chloride Level 99 MMOL/L (98-107) Carbon Dioxide Level 40 MMOL/L (21-32) H Blood Urea Nitrogen 14 mg/dL (7-18) Creatinine 0.6 MG/DL (0.55-1.30) Estimat Glomerular Filtration Rate mL/min (>60) Glucose Level 86 MG/DL (74-106) Calcium Level 8.6 MG/DL (8.5-10.1) Total Bilirubin 0.2 MG/DL (0.2-1.0) Aspartate Amino Transf (AST/SGOT) 17 U/L (15-37) Alanine Aminotransferase (ALT/SGPT) 14 U/L (12-78) Alkaline Phosphatase 78 U/L (46-116) Total Protein 5.1 G/DL (6.4-8.2) L Albumin 1.9 G/DL (3.4-5.0) L Globulin 3.2 g/dL Albumin/Globulin Ratio 0.6 (1.0-2.7) L Arterial Blood pH 7.516 (7.350-7.450) Arterial Blood Partial Pressure CO2 53.6 mmHg (35.0-45.0) H Arterial Blood Partial Pressure O2 68.4 mmHg (75.0-100.0) L Arterial Blood HCO3 42.4 mmol/L (22.0-26.0) *H Arterial Blood Oxygen Saturation 94.2 % (95-100) L Arterial Blood Base Excess 17.5 (-2-2) *H Matthew Test Positive Current Medications Medications (Trade) Dose Ordered Sig/Lainey Route PRN Reason Start Time Stop Time Status Last Admin Dose Admin Acetaminophen (Tylenol) 650 mg Q4H PRN RECTAL Mild Pain (Pain Scale 1-3) 04/12/18 12:00 05/12/18 11:59 Amiodarone HCl (Cordarone) 100 mg DAILY ORAL 04/21/18 09:00 05/21/18 08:59 04/22/18 10:31 Ceftriaxone Sodium 1 gm/ Dextrose 55 ml @ 110 mls/hr Q24H IVPB 04/20/18 06:00 04/27/18 05:59 04/22/18 05:56 Chlorhexidine Gluconate (Madelaine-Hex 2%) 1 applic DAILY@2000 TOPIC 04/14/18 20:00 05/14/18 19:59 04/21/18 20:47 Dextrose (Dextrose 50%) 25 ml Q30M PRN IV Hypoglycemia 04/12/18 00:00 05/12/18 00:00 Dextrose (Dextrose 50%) 50 ml Q30M PRN IV Hypoglycemia 04/12/18 00:00 05/12/18 00:00 Folic Acid (Folate) 1 mg DAILY ORAL 04/21/18 09:00 05/21/18 08:59 04/22/18 10:30 Furosemide (Lasix) 20 mg Q24HRS IV 04/18/18 21:00 05/18/18 20:59 04/21/18 21:46 Levothyroxine Sodium (Synthroid) 50 mcg DAILY@0630 ORAL 04/20/18 06:30 05/20/18 06:29 04/22/18 05:55 Lisinopril (Zestril) 10 mg DAILY ORAL 04/17/18 09:00 05/17/18 08:59 04/22/18 10:31 Magnesium Hydroxide (Mom) 30 ml HSPRN PRN ORAL Constipation 04/12/18 00:00 05/12/18 00:00 Ondansetron HCl (Zofran) 4 mg EVERY 4 HOURS PRN IVP Nausea & Vomiting 04/12/18 00:00 05/12/18 00:00 04/16/18 05:51 Pantoprazole (Protonix) 40 mg DAILY IV 04/12/18 09:00 05/12/18 08:59 04/22/18 10:30 Emerson Mccallum MD Apr 22, 2018 12:43
--- NOTE | 2018-04-22 13:32 | General Surgery Progress Note ---
General Surgery-Progress Note Subjective Symptoms: improved, tolerating diet, passing flatus, BM Objective Last 24 Hour Vital Signs Date Time Temp Pulse Resp B/P (MAP) Pulse Ox O2 Delivery O2 Flow Rate FiO2 04/22/18 11:58 98.2 68 17 99/56 (70) 93 98.2 04/22/18 10:31 129/70 04/22/18 10:31 82 129/70 (89) 04/22/18 09:00 Room Air 04/22/18 08:14 97.9 73 16 117/68 (84) 100 97.9 04/22/18 04:00 97.6 87 136/88 (104) 97.6 04/22/18 00:00 97.7 63 115/71 (86) 97.7 04/21/18 21:39 70 118/63 (81) 04/21/18 21:00 Room Air 04/21/18 20:00 97.9 62 18 103/55 (71) 99 97.9 04/21/18 16:09 96.8 76 17 113/69 (84) 98 96.8 I&O Intake and Output 04/21/18 04/22/18 19:00 07:00 Intake Total 480 ml 295 ml Output Total 275 ml 1550 ml Balance 205 ml -1255 ml Intake Oral 480 ml 240 ml IV Total 55 ml Output Urine Total 275 ml 1550 ml # Bowel Movements 1 1 Drains: none Cardiovascular: RSR Respiratory: clear Abdomen: soft, distended, present bowel sounds Extremities: no cyanosis, other Laboratory Tests Test 04/22/18 05:45 04/22/18 07:30 White Blood Count 11.5 K/UL (4.8-10.8) H Red Blood Count 2.72 M/UL (4.20-5.40) L Hemoglobin 8.0 G/DL (12.0-16.0) L Hematocrit 25.4 % (37.0-47.0) L Mean Corpuscular Volume 93 FL (80-99) Mean Corpuscular Hemoglobin 29.6 PG (27.0-31.0) Mean Corpuscular Hemoglobin Concent 31.6 G/DL (32.0-36.0) L Red Cell Distribution Width 14.1 % (11.6-14.8) Platelet Count 182 K/UL (150-450) Mean Platelet Volume 8.2 FL (6.5-10.1) Neutrophils (%) (Auto) % (45.0-75.0) Lymphocytes (%) (Auto) % (20.0-45.0) Monocytes (%) (Auto) % (1.0-10.0) Eosinophils (%) (Auto) % (0.0-3.0) Basophils (%) (Auto) % (0.0-2.0) Differential Total Cells Counted 100 Neutrophils % (Manual) 89 % (45-75) H Lymphocytes % (Manual) 9 % (20-45) L Monocytes % (Manual) 1 % (1-10) Eosinophils % (Manual) 0 % (0-3) Basophils % (Manual) 1 % (0-2) Band Neutrophils 0 % (0-8) Platelet Estimate Adequate Platelet Morphology Normal Hypochromasia 2+ Anisocytosis 1+ Sodium Level 138 MMOL/L (136-145) Potassium Level 3.7 MMOL/L (3.5-5.1) Chloride Level 99 MMOL/L (98-107) Carbon Dioxide Level 40 MMOL/L (21-32) H Blood Urea Nitrogen 14 mg/dL (7-18) Creatinine 0.6 MG/DL (0.55-1.30) Estimat Glomerular Filtration Rate mL/min (>60) Glucose Level 86 MG/DL (74-106) Calcium Level 8.6 MG/DL (8.5-10.1) Total Bilirubin 0.2 MG/DL (0.2-1.0) Aspartate Amino Transf (AST/SGOT) 17 U/L (15-37) Alanine Aminotransferase (ALT/SGPT) 14 U/L (12-78) Alkaline Phosphatase 78 U/L (46-116) Total Protein 5.1 G/DL (6.4-8.2) L Albumin 1.9 G/DL (3.4-5.0) L Globulin 3.2 g/dL Albumin/Globulin Ratio 0.6 (1.0-2.7) L Arterial Blood pH 7.516 (7.350-7.450) Arterial Blood Partial Pressure CO2 53.6 mmHg (35.0-45.0) H Arterial Blood Partial Pressure O2 68.4 mmHg (75.0-100.0) L Arterial Blood HCO3 42.4 mmol/L (22.0-26.0) *H Arterial Blood Oxygen Saturation 94.2 % (95-100) L Arterial Blood Base Excess 17.5 (-2-2) *H Matthew Test Positive Plan Problems: (1) Intractable vomiting with nausea Assessment & Plan: Gastric distention Small bowel distention leukocytosis possible SBO vs internal hernia complex case. last admission had full work up for similar symptoms. gastric studies and test normal continues to have distention and inability to tolerate oral intake without n/v Plan for contrast GI study r/o obstruction. CT reviewed. need to ensure no distal obstruction. No obstruction noted. contrast into colon. likely enteritis possible psbo resolved. also UTI. CT reviewed. no obstruction noted as compared to prior CT Cardiology note noted. WBC scan pending small portion multiple meals recommended. must be in chair during diet. no diet in bed. thank you. will follow with recs. Samuel Rogers Apr 22, 2018 13:32
--- NOTE | 2018-04-22 15:03 | Diagnostic Imaging Report ---
Indication: Persistent unexplained leukocytosis Technique: In vitro labeling of white blood cells using [id number]. Cells reinjected, whole body images taken at 24 hours Comparison: none. Reference is made to CT scan of the abdomen and pelvis dated 04/17/2018 Findings: There is evidence of a significant scoliotic deformity. This leads to asymmetric prominence of bony activity due to asymmetric proximity of the skeletal structures to the detector. Apparent increased activity in the region of the upper sacrum is likely related to such. Normal liver, spleen, and bone marrow activity demonstrated, as well as normal soft tissue activity. No definite foci of abnormal tracer accumulation. Impression: No definite scintigraphic findings to suggest etiology of stated clinical history of leukocytosis Prominent sacral activity is probably related to skeletal deformity, particularly as review of recent CT scan demonstrates no definite sacral or retrosacral abnormality that would explain any abnormal leukocytosis
[2018-04-22] MEDS ORDERED: FUROSEMIDE40 MG ORAL (15:31)
[2018-04-22] MEDS ORDERED: SYNTHROID50 MCG ORAL (15:31)
--- NOTE | 2018-04-22 15:32 | General Progress Note ---
Assessment/Plan Problem List: (1) SOPHIE (acute kidney injury) Assessment & Plan: better ICD Codes: N17.9 - Acute kidney failure, unspecified SNOMED: 95579857 (2) Vomiting Assessment & Plan: beeter ICD Codes: R11.10 - Vomiting, unspecified SNOMED: 600602041 (3) HTN (hypertension) ICD Codes: I10 - Essential (primary) hypertension SNOMED: 77332524 (4) UTI (urinary tract infection) Assessment & Plan: with E coli ICD Codes: N39.0 - Urinary tract infection, site not specified SNOMED: 77365777 (5) Hypernatremia ICD Codes: E87.0 - Hyperosmolality and hypernatremia SNOMED: 86126395 Assessment/Plan PO Bertha discussed with son and RN DC to [facility] today Subjective Allergies: Coded Allergies: Dairy (Verified Allergy, Severe, GI UPSET, 11/19/08) Subjective feels ok Objective Last 24 Hour Vital Signs Date Time Temp Pulse Resp B/P (MAP) Pulse Ox O2 Delivery O2 Flow Rate FiO2 04/22/18 11:58 98.2 68 17 99/56 (70) 93 98.2 04/22/18 10:31 129/70 04/22/18 10:31 82 129/70 (89) 04/22/18 09:00 Room Air 04/22/18 08:14 97.9 73 16 117/68 (84) 100 97.9 04/22/18 04:00 97.6 87 136/88 (104) 97.6 04/22/18 00:00 97.7 63 115/71 (86) 97.7 04/21/18 21:39 70 118/63 (81) 04/21/18 21:00 Room Air 04/21/18 20:00 97.9 62 18 103/55 (71) 99 97.9 04/21/18 16:09 96.8 76 17 113/69 (84) 98 96.8 Intake and Output 04/21/18 04/22/18 19:00 07:00 Intake Total 480 ml 295 ml Output Total 275 ml 1550 ml Balance 205 ml -1255 ml Intake Oral 480 ml 240 ml IV Total 55 ml Output Urine Total 275 ml 1550 ml # Bowel Movements 1 1 Laboratory Tests 04/22/18 05:45: White Blood Count 11.5H, Red Blood Count 2.72L, Hemoglobin 8.0L, Hematocrit 25.4L, Mean Corpuscular Volume 93, Mean Corpuscular Hemoglobin 29.6, Mean Corpuscular Hemoglobin Concent 31.6L, Red Cell Distribution Width 14.1, Platelet Count 182, Mean Platelet Volume 8.2, Neutrophils (%) (Auto) , Lymphocytes (%) (Auto) , Monocytes (%) (Auto) , Eosinophils (%) (Auto) , Basophils (%) (Auto) , Differential Total Cells Counted 100, Neutrophils % ( Manual) 89H, Lymphocytes % (Manual) 9L, Monocytes % (Manual) 1, Eosinophils % ( Manual) 0, Basophils % (Manual) 1, Band Neutrophils 0, Platelet Estimate Adequate, Platelet Morphology Normal, Hypochromasia 2+, Anisocytosis 1+, Sodium Level 138, Potassium Level 3.7, Chloride Level 99, Carbon Dioxide Level 40H, Blood Urea Nitrogen 14, Creatinine 0.6, Estimat Glomerular Filtration Rate , Glucose Level 86, Calcium Level 8.6, Total Bilirubin 0.2, Aspartate Amino Transf (AST/SGOT) 17, Alanine Aminotransferase (ALT/SGPT) 14, Alkaline Phosphatase 78, Total Protein 5.1L, Albumin 1.9L, Globulin 3.2, Albumin/ Globulin Ratio 0.6L 04/22/18 07:30: Arterial Blood pH 7.516H, Arterial Blood Partial Pressure CO2 53.6H, Arterial Blood Partial Pressure O2 68.4L, Arterial Blood HCO3 42.4*H, Arterial Blood Oxygen Saturation 94.2L, Arterial Blood Base Excess 17.5*H, Matthew Test Positive Height (Feet): 5 Height (Inches): 2.00 Weight (Pounds): 120 Respiratory/Chest: lungs clear Abdomen: soft Simeon Mccallum MD Apr 22, 2018 15:32
--- NOTE | 2018-04-22 15:50 | Cardiology Progress Note ---
Assessment/Plan Assessment/Plan 1. Abdominal pain. 2. Nausea and vomiting. 3. Mitral regurgitation. 4. Hypertension. 5. Coronary disease, status post coronary artery bypass graft. 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 pleural effusion 9. electolyte abn imporoved but still present dhf has a picc line noted repeat cxr resuem amiod folate off ivf will need repat cxr after a few day on nu diuretics may need ct d/w son Subjective Cardiovascular: Denies: chest pain, lightheadedness, palpitations Respiratory: Denies: shortness of breath Gastrointestinal/Abdominal: Denies: abdominal pain Genitourinary: Denies: burning Objective Last 24 Hour Vital Signs Date Time Temp Pulse Resp B/P (MAP) Pulse Ox O2 Delivery O2 Flow Rate FiO2 04/22/18 11:58 98.2 68 17 99/56 (70) 93 98.2 04/22/18 10:31 129/70 04/22/18 10:31 82 129/70 (89) 04/22/18 09:00 Room Air 04/22/18 08:14 97.9 73 16 117/68 (84) 100 97.9 04/22/18 04:00 97.6 87 136/88 (104) 97.6 04/22/18 00:00 97.7 63 115/71 (86) 97.7 04/21/18 21:39 70 118/63 (81) 04/21/18 21:00 Room Air 04/21/18 20:00 97.9 62 18 103/55 (71) 99 97.9 04/21/18 16:09 96.8 76 17 113/69 (84) 98 96.8 General Appearance: alert Neck: supple Cardiovascular: normal rate, systolic murmur Respiratory/Chest: decreased breath sounds Abdomen: normal bowel sounds, non tender, soft Extremities: no swelling Intake and Output 04/21/18 04/22/18 19:00 07:00 Intake Total 480 ml 295 ml Output Total 275 ml 1550 ml Balance 205 ml -1255 ml Intake Oral 480 ml 240 ml IV Total 55 ml Output Urine Total 275 ml 1550 ml # Bowel Movements 1 1 Laboratory Tests Test 04/22/18 05:45 04/22/18 07:30 White Blood Count 11.5 K/UL (4.8-10.8) H Red Blood Count 2.72 M/UL (4.20-5.40) L Hemoglobin 8.0 G/DL (12.0-16.0) L Hematocrit 25.4 % (37.0-47.0) L Mean Corpuscular Volume 93 FL (80-99) Mean Corpuscular Hemoglobin 29.6 PG (27.0-31.0) Mean Corpuscular Hemoglobin Concent 31.6 G/DL (32.0-36.0) L Red Cell Distribution Width 14.1 % (11.6-14.8) Platelet Count 182 K/UL (150-450) Mean Platelet Volume 8.2 FL (6.5-10.1) Neutrophils (%) (Auto) % (45.0-75.0) Lymphocytes (%) (Auto) % (20.0-45.0) Monocytes (%) (Auto) % (1.0-10.0) Eosinophils (%) (Auto) % (0.0-3.0) Basophils (%) (Auto) % (0.0-2.0) Differential Total Cells Counted 100 Neutrophils % (Manual) 89 % (45-75) H Lymphocytes % (Manual) 9 % (20-45) L Monocytes % (Manual) 1 % (1-10) Eosinophils % (Manual) 0 % (0-3) Basophils % (Manual) 1 % (0-2) Band Neutrophils 0 % (0-8) Platelet Estimate Adequate Platelet Morphology Normal Hypochromasia 2+ Anisocytosis 1+ Sodium Level 138 MMOL/L (136-145) Potassium Level 3.7 MMOL/L (3.5-5.1) Chloride Level 99 MMOL/L (98-107) Carbon Dioxide Level 40 MMOL/L (21-32) H Blood Urea Nitrogen 14 mg/dL (7-18) Creatinine 0.6 MG/DL (0.55-1.30) Estimat Glomerular Filtration Rate mL/min (>60) Glucose Level 86 MG/DL (74-106) Calcium Level 8.6 MG/DL (8.5-10.1) Total Bilirubin 0.2 MG/DL (0.2-1.0) Aspartate Amino Transf (AST/SGOT) 17 U/L (15-37) Alanine Aminotransferase (ALT/SGPT) 14 U/L (12-78) Alkaline Phosphatase 78 U/L (46-116) Total Protein 5.1 G/DL (6.4-8.2) L Albumin 1.9 G/DL (3.4-5.0) L Globulin 3.2 g/dL Albumin/Globulin Ratio 0.6 (1.0-2.7) L Arterial Blood pH 7.516 (7.350-7.450) Arterial Blood Partial Pressure CO2 53.6 mmHg (35.0-45.0) H Arterial Blood Partial Pressure O2 68.4 mmHg (75.0-100.0) L Arterial Blood HCO3 42.4 mmol/L (22.0-26.0) *H Arterial Blood Oxygen Saturation 94.2 % (95-100) L Arterial Blood Base Excess 17.5 (-2-2) *H Matthew Test Positive Teo Gross MD Apr 22, 2018 15:50
[2018-04-22 16:06] VITALS: BP 136/78
[2018-04-22] MEDS ORDERED: Influenza Vaccine Quadrivalent 0.5ml IM ONE ×2 (17:30→18:00)
[2018-04-22] MEDS ORDERED: NS 275ml ONE (18:49)
--- NOTE | 2018-04-22 22:32 | General Progress Note ---
Assessment/Plan Assessment/Plan Assessment - recurrent N/V - resolved - suspect intermittent PSBO or intermittent gastric outlet obstruction due to abdominal wall hernia - persistent leukocytosis - negative indium scan - Azotmia - Resp alkalosis / metabolic acidosis Recommendations - po diet as tolerated - follow symptoms - surgical f/u - acid base per renal Subjective Allergies: Coded Allergies: Dairy (Verified Allergy, Severe, GI UPSET, 11/19/08) Subjective No new complaints d/w son at bedside tolerating po WBC scan noted d/w Dr. Mccallum re ABG results Objective Last 24 Hour Vital Signs Date Time Temp Pulse Resp B/P (MAP) Pulse Ox O2 Delivery O2 Flow Rate FiO2 04/22/18 16:06 98.6 85 18 136/78 (97) 99 98.6 04/22/18 11:58 98.2 68 17 99/56 (70) 93 98.2 04/22/18 10:31 129/70 04/22/18 10:31 82 129/70 (89) 04/22/18 09:00 Room Air 04/22/18 08:14 97.9 73 16 117/68 (84) 100 97.9 04/22/18 04:00 97.6 87 136/88 (104) 97.6 04/22/18 00:00 97.7 63 115/71 (86) 97.7 Intake and Output 04/21/18 04/22/18 19:00 07:00 Intake Total 480 ml 295 ml Output Total 275 ml 1550 ml Balance 205 ml -1255 ml Intake Oral 480 ml 240 ml IV Total 55 ml Output Urine Total 275 ml 1550 ml # Bowel Movements 1 1 Laboratory Tests 04/22/18 05:45: White Blood Count 11.5H, Red Blood Count 2.72L, Hemoglobin 8.0L, Hematocrit 25.4L, Mean Corpuscular Volume 93, Mean Corpuscular Hemoglobin 29.6, Mean Corpuscular Hemoglobin Concent 31.6L, Red Cell Distribution Width 14.1, Platelet Count 182, Mean Platelet Volume 8.2, Neutrophils (%) (Auto) , Lymphocytes (%) (Auto) , Monocytes (%) (Auto) , Eosinophils (%) (Auto) , Basophils (%) (Auto) , Differential Total Cells Counted 100, Neutrophils % ( Manual) 89H, Lymphocytes % (Manual) 9L, Monocytes % (Manual) 1, Eosinophils % ( Manual) 0, Basophils % (Manual) 1, Band Neutrophils 0, Platelet Estimate Adequate, Platelet Morphology Normal, Hypochromasia 2+, Anisocytosis 1+, Sodium Level 138, Potassium Level 3.7, Chloride Level 99, Carbon Dioxide Level 40H, Blood Urea Nitrogen 14, Creatinine 0.6, Estimat Glomerular Filtration Rate , Glucose Level 86, Calcium Level 8.6, Total Bilirubin 0.2, Aspartate Amino Transf (AST/SGOT) 17, Alanine Aminotransferase (ALT/SGPT) 14, Alkaline Phosphatase 78, Total Protein 5.1L, Albumin 1.9L, Globulin 3.2, Albumin/ Globulin Ratio 0.6L 04/22/18 07:30: Arterial Blood pH 7.516H, Arterial Blood Partial Pressure CO2 53.6H, Arterial Blood Partial Pressure O2 68.4L, Arterial Blood HCO3 42.4*H, Arterial Blood Oxygen Saturation 94.2L, Arterial Blood Base Excess 17.5*H, Matthew Test Positive Height (Feet): 5 Height (Inches): 2.00 Weight (Pounds): 120 Objective Thin WW NCAT supple CTA RRR soft abdomen, but distended diastasis defect no edema non focal Cecilio Hendricks MD Apr 22, 2018 22:32
[2018-04-23] MEDS ORDERED: Furosemide 40mg tab ORAL SCH (09:00)
--- NOTE | 2018-04-23 09:02 | Discharge Summary ---
Discharge Summary Discharge Summary _ DATE OF ADMISSION: 04/11/2018 DATE OF DISCHARGE: 04/22/2018 REASON FOR ADMISSION: 87 years old female with past medical history of hypertension, coronary artery disease, with history of CABG, hypothyroidism ,large abdominal hernia, was just discharged from the hospital and sent to [facility] for rehabilitation. After few hours being in the correction facility, patient started to have intractable vomiting. Zofran was administered, however patient continued to have vomiting episodes , and was subsequently sent to emergency room for further evaluation. Upon evaluation vital signs were stable. Laboratory workup revealed leukocytosis WBC 13.8, stable hemoglobin and hematocrit. BUN 51 creatinine 1.7. LFT, lipase within normal limits. CT of the abdomen and pelvis revealed possible small bowel obstruction. Bilateral pleural effusion with adjacent atelectasis. Cardiomegaly with coronary artery calcification. Distended bladder with bilateral hydronephrosis without evidence of ureteral stone. Cholelithiasis without pericholecystic inflammatory changes. Patient admitted with diagnoses of intractable vomiting with nausea, large ventral hernia ,possible small bowel obstruction due to dehydration ,acute kidney injury, bilateral hydronephrosis. CONSULTANTS: ladle repairer Dr. Gross ID specialist Dr. Venegas GI specialist [facility] COURSE: Patient admitted. NG tube was inserted to low intermittent suction. Patient started on the IV fluids and was kept nothing by mouth. Antiemetic provided as needed. GI and surgery consults were requested. Small bowel follow-through with Gastrografin revealed improving partial small bowel obstruction in the distal small bowel , compared to prior CT skin. Follow-up abdominal series revealed further propagation of contrast material. Patient slowly started on liquid diet and was advanced as tolerated. Antiemetics provided as needed. Pain management was addressed. Bowel regimen instituted. GI prophylaxis provided. Renal ultrasound revealed moderate bilateral hydronephrosis with severe distention of the urinary bladder and urinary retention. Subsequently Sheffield catheter was placed. Renal parameters and electrolytes were closely monitored. Electrolytes corrected as needed , and nephrotoxins were avoided . Acute kidney injury resolved , prior to discharge BUN 14 and creatinine 0.6 Patient demonstrated persistent leukocytosis, no fever s. ID specialist closely followed. Urinalysis findings were consistent with UTI. Urine culture revealed Escherichia coli . Patient was on antibiotic as per ID management. Repeated CT of the abdomen and pelvis revealed large ventral hernia ,containing segment of small bowel, transverse colon and much of the stomach. Previously demonstrated dilation of proximal small bowel significantly improved , but still present. Consider possible intermittent partial bowel obstruction. At that time that was no evidence of obstruction as contrast was seen within distal small bowel and colon. Moderate bilateral pleural effusion with associated basilar atelectasis noted. Resolution of hydronephrosis was seen, probably related to Sheffield catheter placement and decompression of the urinary bladder. Mild ascites. Moderate to severe atherosclerotic disease. Nuclear medicine WBC indium scan was negative. Prior to discharge WBC 11.5. No fevers. Per GI specialist, patient had intermittent partial small bowel obstruction or possible intermittent gastric outlet obstruction ,secondary to large abdominal wall hernia. At this time patient was able to tolerate diet. Surgeon closely followed and recommended small frequent portions of meals , sit up in chair for meals, no food while in the bed. No acute surgical intervention was necessary at this time. Respiratory Therapy Director closely followed. Patient with known history of coronary artery disease, status post CABG. Patient was initially on IV fluids and NPO. Chest x-ray revealed evidence of congestive heart failure IV fluids discontinued. Patient started on diuresis with close monitoring of cardiorenal parameters and volumes. Supplemental oxygen provided as needed to keep pulse oximetry above 92%. Blood pressure was managed with YUNI inhibitor and remained stable. Amiodarone resumed. Patient will need to repeat chest x-ray after few days of diuretics as outpatient. Patient clinically improved : vomiting resolved, able to tolerate small frequent meal. Patient was ready for discharge to correction facility for continuation of care. 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 DISCHARGE INSTRUCTIONS: Patient was discharged to the correction facility. Follow up with medical doctor at the facility. Repeat CXR in few days. I have been assigned to dictate discharge summary for this account. I was not involved in the patient's management. Charisse Naqvi NP Apr 23, 2018 09:02
== END 2018-04-22 18:50 | DRG 254 ==
LOC: EDBD 22:48 → EMR 23:27 → 4E 23:47 → EDBEDREQ 04-12 00:32
PROC: 02HV33Z Insertion of Infusion Device into Superior Vena Cava, Percutaneous Approach (ICD-10-PCS; principal; 2018-04-16)
DX: K43.6 Other and unspecified ventral hernia with obstruction, without gangrene (principal); N17.9 Acute kidney failure, unspecified; K56.690 Other partial intestinal obstruction; K31.1 Adult hypertrophic pyloric stenosis; E87.0 Hyperosmolality and hypernatremia; N13.30 Unspecified hydronephrosis; I11.0 Hypertensive heart disease with heart failure; I50.30 Unspecified diastolic (congestive) heart failure; E86.0 Dehydration; I25.10 Atherosclerotic heart disease of native coronary artery without angina pectoris; Z95.1 Presence of aortocoronary bypass graft; I34.0 Nonrheumatic mitral (valve) insufficiency; N39.0 Urinary tract infection, site not specified; B96.20 Unspecified Escherichia coli [E. coli] as the cause of diseases classified elsewhere; M19.90 Unspecified osteoarthritis, unspecified site; K57.90 Diverticulosis of intestine, part unspecified, without perforation or abscess without bleeding
CPT/HCPCS: 36415; 36569; 36600; 71045; 74018; 74176; 74250; 76770; 76937; 78807; 80048; 80053; 80061; 81001; 82803; 83036; 83690; 83735; 84100; 84443; 85007; 85025; 85651; 86140; 87081; 87086; 87181; 90686; 96361; 96374; 99285; A9570; J2405; J8499